=== PATIENT | female | born 1935 | race Hispanic/Latino ===

== ENCOUNTER 2018-03-27 18:00 | Observation (INO) | payer OTHER ==
[2018-03-27 19:24] LABS: Absolute Lymphocytes (CBC) 1.7 K/uL (0.7-4.9); Absolute Monocytes 0.8 K/uL (0.1-1.3); Absolute Neutrophil 4.7 K/uL (1.8-8.0); Basophils % 0.5 % (0-1.3); Hematocrit 37.2 % (36.0-45.0); Lymphocytes % 23.9 % (15.3-44.8); MCH 29.7 pg (27.0-35.0); MCV 88.3 fL (80-100); MPV 8.1 fL (7.6-11.3); Monocytes % 10.7 % (3.3-12.3); RBC Red Blood Cell Count 4.22 M/uL (3.86-4.86)
[2018-03-27 19:25] LABS: Protime INR 0.98
[2018-03-27 19:32] LABS: ALT/SGPT 22 U/L (12-78); AST/SGOT 14 U/L (15-37); Albumin 3.5 g/dL (3.4-5.0); Alkaline Phosphatase 119 U/L (45-117); BUN Blood Urea Nitrogen 17 mg/dL (7-18); Bicarbonate 26 mmol/L (21-32); Bilirubin Direct 0.1 mg/dL (0-0.2); Bilirubin Total 0.4 mg/dL (0.2-1.0); Glucose Level 110 mg/dL (74-106); Lipase 192 U/L (73-393); Magnesium 2.2 mg/dL (1.8-2.4); NT PRO-BNP 129 pg/mL (<450); Potassium 3.3 mmol/L (3.5-5.1); Protein, Total 6.9 g/dL (6.4-8.2); Sodium Level 133 mmol/L (136-145); Troponin (Emerg Dept Use Only) < 0.02 ng/mL (0.0-0.045)
[2018-03-27] MEDS ORDERED: NA CHLORIDE 0.9% 1,000 ML ONE (20:03)
--- NOTE | 2018-03-27 20:14 | RAD REPORT ---
EXAM DESCRIPTION: CT - Chest Abd Pelvis Wo Con - 03/27/2018 8:02 pm CLINICAL HISTORY: Chest pain;Abdominal distention COMPARISON: None. TECHNIQUE: During dynamic enhancement using 100 milliliters nonionic IV contrast, axial 5 millimeter thick images of the chest, abdomen and pelvis were obtained. Biphasic technique was utilized through the abdomen. Oral contrast was administered. All CT scans are performed using dose optimization technique as appropriate and may include automated exposure control or mA/KV adjustment according to patient size. FINDINGS: No infiltrate and no large mass in the lung parenchyma. There are few scattered areas of n odularity under 5 mm in size. No calcifications. No pneumothorax or pleural effusion. No chest wall mass or abnormal axillary lymphadenopathy seen. Mediastinal and hilar regions show no mass or lympha denopathy. No significant cardiac finding. The liver, spleen and pancreas show no significant findings. Cholecystectomy clips are present. No b iliary tree dilatation. Symmetric renal function is seen with no hydronephrosis, mass or other significant finding. Left adr enal gland is normal. A 2.9 centimeter fat attenuation right adrenal mass is present. This is an inci dental adenoma. No urinary bladder abnormalities. Small amount of air in the bladder is probably fro m catheterization. Uterus is absent. Ovaries are absent or atrophic. No dilated bowel loops or focal ball bowel wall thickening. Sigmoid diverticulosis present without di verticulitis. No free air, free fluid or inflammatory stranding. No hernia, mass or bulky lymphadeno mark. Disc and bony degenerative changes are present. Enlarged right lobe of the thyroid suspicious for a 2 cm sized nodule. IMPRESSION: No large mass, infiltrate or acute CT chest finding. Multiple small pulmonary nodules are present under 5 mm in size. Long-term significance is doubtful. No recommendation for follow-up for a low risk patient. High risk patient recommendation is optional CT at 12 months. Incidental right adrenal adenoma. No acute GI or process.
--- NOTE | 2018-03-27 20:40 | EDPHYS ---
Physician Documentation [facility] Name: Radha Laguna Age: 83 yrs Sex: Female : 1935 Arrival Date: 03/27/2018 Time: 18:04 Bed 8 Private MD: Walter Escobar ED Physician Douglas Gates HPI: 03/27 20:34 This 83 yrs old Female presents to ER via Ambulatory with complaints of robson Abdominal Pain, Back Pain. 20:34 The patient presents with pain that is chronic. The symptoms are located in the T7, T8, robson T9, T10, T12, L1, L2 and L3. 20:35 The patient presents with abdominal pain in the upper abdomen. Onset: The robson symptoms/episode began/occurred 7 day(s) ago. Onset: The symptoms/episode began/occurred 7 day(s) ago. The pain does not radiate. Associated signs and symptoms: Pertinent positives: nausea, weakness, shakey. Modifying factors: The patient symptoms are alleviated by nothing, the patient symptoms are aggravated by vague. Historical: - Allergies: 18:25 NKDA; aa5 - PMHx: 18:25 Diabetes - NIDDM; Hypertension; aa5 - PSHx: 18:25 Appendectomy; Cholecystectomy; Hysterectomy; aa5 - Immunization history:: Pneumococcal vaccine is up to date, Flu vaccine is not up to date. - Social history:: Smoking status: Patient/guardian denies using tobacco. - Ebola Screening: : No symptoms or risks identified at this time. - Family history:: pertinent for. ROS: 20:35 Constitutional: Negative for fever, chills, and weight loss, Eyes: Negative for injury, robson pain, redness, and discharge, ENT: Negative for injury, pain, and discharge, Neck: Negative for injury, pain, and swelling, Cardiovascular: Negative for chest pain, palpitations, and edema, Respiratory: Negative for shortness of breath, cough, wheezing, and pleuritic chest pain, Back: Negative for injury and pain, : Negative for injury, bleeding, discharge, and swelling, MS/Extremity: Negative for injury and deformity, Skin: Negative for injury, rash, and discoloration, Neuro: Negative for headache, weakness, numbness, tingling, and seizure, Psych: Negative for depression, anxiety, suicide ideation, homicidal ideation, and hallucinations, Allergy/Immunology: Negative for hives, rash, and allergies, Endocrine: Negative for neck swelling, polydipsia, polyuria, polyphagia, and marked weight changes, Hematologic/Lymphatic: Negative for swollen nodes, abnormal bleeding, and unusual bruising. 20:35 Abdomen/GI: Positive for abdominal pain, nausea. Exam: 20:35 Constitutional: This is a well developed, well nourished patient who is awake, alert, robson and in no acute distress. Head/Face: Normocephalic, atraumatic. Eyes: Pupils equal round and reactive to light, extra-ocular motions intact. Lids and lashes normal. Conjunctiva and sclera are non-icteric and not injected. Cornea within normal limits. Periorbital areas with no swelling, redness, or edema. ENT: Nares patent. No nasal discharge, no septal abnormalities noted. Tympanic membranes are normal and external auditory canals are clear. Oropharynx with no redness, swelling, or masses, exudates, or evidence of obstruction, uvula midline. Mucous membranes moist. Neck: Trachea midline, no thyromegaly or masses palpated, and no cervical lymphadenopathy. Supple, full range of motion without nuchal rigidity, or vertebral point tenderness. No Meningismus. Chest/axilla: Normal chest wall appearance and motion. Nontender with no deformity. No lesions are appreciated. Cardiovascular: Regular rate and rhythm with a normal S1 and S2. No gallops, murmurs, or rubs. Normal PMI, no JVD. No pulse deficits. Respiratory: Lungs have equal breath sounds bilaterally, clear to auscultation and percussion. No rales, rhonchi or wheezes noted. No increased work of breathing, no retractions or nasal flaring. Back: No spinal tenderness. No costovertebral tenderness. Full range of motion. Female : Normal external genitalia. Skin: Warm, dry with normal turgor. Normal color with no rashes, no lesions, and no evidence of cellulitis. MS/ Extremity: Pulses equal, no cyanosis. Neurovascular intact. Full, normal range of motion. Neuro: Awake and alert, GCS 15, oriented to person, place, time, and situation. Cranial nerves II-XII grossly intact. Motor strength 5/5 in all extremities. Sensory grossly intact. Cerebellar exam normal. Normal gait. Psych: Awake, alert, with orientation to person, place and time. Behavior, mood, and affect are within normal limits. 20:35 Abdomen/GI: Inspection: distension, Bowel sounds: normal, Palpation: mild abdominal tenderness, in all quadrants, Liver: no appreciated palpable abnormalities, Hernia: not appreciated. Vital Signs: 18:27 BP 145 / 65; Pulse 74; Resp 18 S; Temp 97.4(TE); Pulse Ox 96% on R/A; Weight 72.57 kg aa5 (R); Height 4 ft. 11 in. (149.86 cm) (R); Pain 10/10; 19:30 BP 153 / 62; Pulse 64; Resp 18; Pulse Ox 100% on R/A; aa1 20:30 BP 170 / 73; Pulse 62; Resp 18; Pulse Ox 100% on R/A; aa1 21:30 BP 159 / 65; Pulse 64; Resp 18; Pulse Ox 99% on R/A; Pain 0/10; aa1 22:30 BP 151 / 66; Pulse 62; Resp 18; Pulse Ox 99% on R/A; Pain 0/10; aa1 18:27 Body Mass Index 32.32 (72.57 kg, 149.86 cm) aa5 MDM: 18:47 Patient medically screened. [facility] 20:37 Data reviewed: vital signs, nurses notes, lab test result(s), EKG, radiologic studies, [facility] CT scan, plain films. 03/27 18:39 Order name: Basic Metabolic Panel; Complete Time: 19:33 bp 03/27 18:39 Order name: CBC with Diff; Complete Time: 20:23 bp 03/27 18:39 Order name: LFT's; Complete Time: 19:33 bp 03/27 18:39 Order name: Magnesium; Complete Time: 19:33 bp 03/27 18:39 Order name: NT PRO-BNP; Complete Time: 19:33 bp 03/27 18:39 Order name: PT-INR; Complete Time: 20:23 bp 03/27 18:39 Order name: Troponin (emerg Dept Use Only); Complete Time: 19:33 bp 03/27 18:39 Order name: XRAY Chest (1 view); Complete Time: 23:13 bp 03/27 18:39 Order name: Creatinine for Radiology; Complete Time: 19:33 bp 03/27 18:39 Order name: Lipase; Complete Time: 19:33 bp 03/27 19:35 Order name: CT Chest Abdomen Pelvis W/O Contrast: no oral no iv; Complete Time: 20:23 robson 03/27 20:40 Order name: Urine Culture [facility] 03/27 20:47 Order name: Urine Dipstick--Ancillary (enter results); Complete Time: 23:13 ms 03/27 20:47 Order name: Urine Microscopic Only; Complete Time: 23:13 ms 03/27 18:39 Order name: EKG; Complete Time: 18:40 bp 03/27 18:39 Order name: Cardiac monitoring; Complete Time: 18:40 bp 03/27 18:39 Order name: EKG - Nurse/Tech; Complete Time: 18:54 bp 03/27 18:39 Order name: IV Saline Lock; Complete Time: 18:40 bp 03/27 18:39 Order name: Labs collected and sent; Complete Time: 18:40 bp 03/27 18:39 Order name: O2 Per Protocol; Complete Time: 18:40 bp 03/27 18:39 Order name: O2 Sat Monitoring; Complete Time: 18:40 bp Administered Medications: Discontinued: NS 0.9% 1000 ml IV at 125 ml/hr continuous 20:33 Drug: NS 0.9% 1000 ml Route: IV; Rate: 125 ml/hr; Site: right antecubital; aa1 21:39 Drug: ProTONIX 40 mg Route: IVP; Site: right antecubital; aa1 21:40 Follow up: Response: No adverse reaction aa1 21:40 Drug: NS 0.9% with KCl 20 mEq/L 1000 ml Route: IV; Rate: 100 ml/hr; Site: right aa1 antecubital; 23:02 Follow up: IV Status: Infusion continued upon admission aa1 21:41 Not Given (Other Intervention Used): Rocephin - (cefTRIAXone) 1 grams IVPB once over 30 aa1 mins; (mix in 50 mL NS) 21:41 Drug: Rocephin 1 grams Route: IV; Rate: bolus; Site: right antecubital; aa1 21:51 Follow up: IV Status: Completed infusion aa1 23:16 Not Given (Patient Refused): fentaNYL (PF) 25 mcg IVP once aa1 23:16 Not Given (Patient Refused): Zofran 4 mg IVP once; over 2 minutes aa1 Point of Care Testing: Blood Glucose: 18:34 Blood Glucose: 116 mg/dL; aa5 Ranges: Critical Glucose Levels:Adult <50 mg/dl or >400 mg/dl <40 mg/dl or >180 mg/dl Disposition: 03/27/18 20:40 Hospitalization ordered by Neeraj Mathur for Observation. Preliminary diagnosis are Low back pain, Generalized abdominal pain, Weakness, Cystitis, Hypokalemia. - Bed requested for Telemetry/MedSurg (observation). - Status is Observation. aa1 - Condition is Fair. - Problem is new. - Symptoms have improved. UTI on Admission? Yes Signatures: Dispatcher [employer] EDMS Monika Lynn RN Marlene Garza RN RN aa1 Douglas Gates MD MD cha Calderon, Audri RN RN aa5 Dorian Breaux RN RN bp Corrections: (The following items were deleted from the chart) 22:18 20:40 Hospitalization Ordered by Neeraj Mathur MD for Observation. Preliminary diagnosis is Low back pain; Generalized abdominal pain; Weakness; Cystitis. Bed requested for Telemetry/MedSurg (observation). Status is Observation. Condition is Fair. Problem is new. Symptoms have improved. UTI on Admission? Yes. robson 23:14 22:18 03/27/2018 20:40 Hospitalization Ordered by Neeraj Mathur MD for Observation. [facility] Preliminary diagnosis is Low back pain; Generalized abdominal pain; Weakness; Cystitis. Bed requested for Telemetry/MedSurg (observation). Status is Observation. Condition is Fair. Problem is new. Symptoms have improved. UTI on Admission? Yes. leida 23:29 23:14 03/27/2018 20:40 Hospitalization Ordered by Neeraj Mathur MD for Observation. aa1 Preliminary diagnosis is Low back pain; Generalized abdominal pain; Weakness; Cystitis; Hypokalemia. Bed requested for Telemetry/MedSurg (observation). Status is Observation. Condition is Fair. Problem is new. Symptoms have improved. UTI on Admission? Yes. robson
--- NOTE | 2018-03-27 20:40 | ER ---
Nurse's Notes [facility] Name: Radha Laguna Age: 83 yrs Sex: Female : 1935 Arrival Date: 03/27/2018 Time: 18:04 Bed 8 Private MD: Walter Escobar Diagnosis: Low back pain;Generalized abdominal pain;Weakness;Cystitis;Hypokalemia Presentation: 03/27 18:24 Presenting complaint: Patient states: upper abd pain and upper back pain that began 1 aa5 week ago. Pt reports nausea, denies vomiting, denies diarrhea. Pt also reports decreased appetite x 1 week ago. Transition of care: patient was not received from another setting of care. Onset of symptoms was March 2018. Risk Assessment: Do you want to hurt yourself or someone else? Patient reports no desire to harm self or others. Initial Sepsis Screen: Does the patient meet any 2 criteria? No. Patient's initial sepsis screen is negative. Does the patient have a suspected source of infection? No. Patient's initial sepsis screen is negative. Care prior to arrival: None. 18:24 Method Of Arrival: Ambulatory aa5 18:24 Acuity: JULIET 3 aa5 Historical: - Allergies: 18:25 NKDA; aa5 - PMHx: 18:25 Diabetes - NIDDM; Hypertension; aa5 - PSHx: 18:25 Appendectomy; Cholecystectomy; Hysterectomy; aa5 - Immunization history:: Pneumococcal vaccine is up to date, Flu vaccine is not up to date. - Social history:: Smoking status: Patient/guardian denies using tobacco. - Ebola Screening: : No symptoms or risks identified at this time. - Family history:: pertinent for. Screenin:41 Abuse screen: Denies threats or abuse. Denies injuries from another. Nutritional bp screening: No deficits noted. Tuberculosis screening: No symptoms or risk factors identified. Fall Risk None identified. Assessment: 18:41 General: Appears in no apparent distress. uncomfortable, obese, Behavior is calm, bp cooperative, appropriate for age. Pain: Complains of pain in abdomen. Neuro: Level of Consciousness is awake, alert, obeys commands, Oriented to person, place, time, situation, Appropriate for age. Cardiovascular: Rhythm is sinus rhythm. Respiratory: Airway is patent Respiratory effort is even, unlabored, Respiratory pattern is regular, symmetrical. GI: Bowel sounds present X 4 quads. Abd is soft X 4 quads Patient currently denies diarrhea, vomiting, Parent/caregiver reports the patient having nausea. : No signs and/or symptoms were reported regarding the genitourinary system. EENT: No deficits noted. Derm: No deficits noted. Musculoskeletal: Circulation, motion, and sensation intact. Range of motion: intact in all extremities. 19:30 Reassessment: Patient appears in no apparent distress at this time. Patient and/or aa1 family updated on plan of care and expected duration. Pain level reassessed. Patient is alert, oriented x 3, equal unlabored respirations, skin warm/dry/pink. Pt awaiting CT scan. 20:15 Reassessment: Patient appears in no apparent distress at this time. Patient and/or aa1 family updated on plan of care and expected duration. Pain level reassessed. Patient is alert, oriented x 3, equal unlabored respirations, skin warm/dry/pink. Awaiting CT results. 21:42 Reassessment: Patient appears in no apparent distress at this time. Patient and/or aa1 family updated on plan of care and expected duration. Pain level reassessed. Patient is alert, oriented x 3, equal unlabored respirations, skin warm/dry/pink. Awaiting bed assignment Patient denies pain at this time. 23:04 Reassessment: Patient appears in no apparent distress at this time. Patient is alert, aa1 oriented x 3, equal unlabored respirations, skin warm/dry/pink. Report given to Kaycee on 4th floor Patient denies pain at this time. Vital Signs: 18:27 BP 145 / 65; Pulse 74; Resp 18 S; Temp 97.4(TE); Pulse Ox 96% on R/A; Weight 72.57 kg aa5 (R); Height 4 ft. 11 in. (149.86 cm) (R); Pain 10/10; 19:30 BP 153 / 62; Pulse 64; Resp 18; Pulse Ox 100% on R/A; aa1 20:30 BP 170 / 73; Pulse 62; Resp 18; Pulse Ox 100% on R/A; aa1 21:30 BP 159 / 65; Pulse 64; Resp 18; Pulse Ox 99% on R/A; Pain 0/10; aa1 22:30 BP 151 / 66; Pulse 62; Resp 18; Pulse Ox 99% on R/A; Pain 0/10; aa1 18:27 Body Mass Index 32.32 (72.57 kg, 149.86 cm) aa5 ED Course: 18:04 Patient arrived in ED. mr 18:05 Walter Escobar MD is Private Physician. mr 18:26 Triage completed. aa5 18:26 Arm band placed on. aa5 18:29 Dorian Breaux, RN is Primary Nurse. bp 18:41 Patient has correct armband on for positive identification. Bed in low position. Call bp light in reach. Side rails up X2. Adult w/ patient. 18:41 Inserted saline lock: 20 gauge in right antecubital area, using aseptic technique. bp Blood collected. 18:47 Douglas Gates MD is Attending Physician. robson 18:53 EKG done, by ED staff, reviewed by Douglas Gates MD. em1 19:05 XRAY Chest (1 view) In Process Unspecified. EDMS 20:02 CT Chest Abdomen Pelvis W/O Contrast: no oral no iv In Process Unspecified. EDMS 20:38 Neeraj Mathur MD is Hospitalizing Provider. robson 22:52 No provider procedures requiring assistance completed. Patient admitted, IV remains in aa1 place. Administered Medications: Discontinued: NS 0.9% 1000 ml IV at 125 ml/hr continuous 20:33 Drug: NS 0.9% 1000 ml Route: IV; Rate: 125 ml/hr; Site: right antecubital; aa1 21:39 Drug: ProTONIX 40 mg Route: IVP; Site: right antecubital; aa1 21:40 Follow up: Response: No adverse reaction aa1 21:40 Drug: NS 0.9% with KCl 20 mEq/L 1000 ml Route: IV; Rate: 100 ml/hr; Site: right aa1 antecubital; 23:02 Follow up: IV Status: Infusion continued upon admission aa1 21:41 Not Given (Other Intervention Used): Rocephin - (cefTRIAXone) 1 grams IVPB once over 30 aa1 mins; (mix in 50 mL NS) 21:41 Drug: Rocephin 1 grams Route: IV; Rate: bolus; Site: right antecubital; aa1 21:51 Follow up: IV Status: Completed infusion aa1 23:16 Not Given (Patient Refused): fentaNYL (PF) 25 mcg IVP once aa1 23:16 Not Given (Patient Refused): Zofran 4 mg IVP once; over 2 minutes aa1 Point of Care Testing: Blood Glucose: 18:34 Blood Glucose: 116 mg/dL; aa5 Ranges: Outcome: 20:40 Decision to Hospitalize by Provider. [facility] 23:04 Admitted to Tele accompanied by tech, family with patient, via stretcher, room 419, aa1 with chart, Report called to Kaycee 23:04 Condition: stable 23:04 Discharge instructions given to family, Instructed on the need for admit, Demonstrated understanding of instructions. 23:29 Patient left the ED. aa1 Signatures: Dispatcher [employer] EDMS Marlene Vee RN RN aa1 Douglas Gates MD MD cha Rivera, Cindy Szymanski, Que em1 Margaret Denson, AILYN RN aa5 Dorian Breaux, RN RN bp Corrections: (The following items were deleted from the chart) 18:28 18:24 Presenting complaint: Patient states: upper abd pain and upper back pain that aa5 began 1 week ago. Pt reports nausea, denies vomiting, denies diarrhea. aa5
--- NOTE | 2018-03-27 20:43 | RAD REPORT ---
EXAM DESCRIPTION: RAD - Chest Single View - 03/27/2018 7:04 pm CLINICAL HISTORY: Chest pain, abdominal pain COMPARISON: October 2016 TECHNIQUE: AP portable chest image was obtained 1900 hours . FINDINGS: Inspiratory effort is shallow. This accentuates lung markings. No new mass, consolidation or significant failure. Heart and vasculature are normal. No measurable pleural effusion and no pneum othorax. No acute bony abnormality seen. No acute aortic findings suspected. IMPRESSION: Shallow inspiration film without acute cardiopulmonary finding. No significant change from comparison.
[2018-03-27] MEDS ORDERED: MORPHINE 4 MG/ML SYR IV PRN (21:15)
[2018-03-27] MEDS ORDERED: ONDANSETRON 4 MG/2 ML VIAL IV PRN (21:15)
[2018-03-27] MEDS ORDERED: ACETAMINOPHEN 500 MG TAB PO PRN (21:15)
[2018-03-27 21:20] LABS: Urine Blood 1+ (NEG); Urine Glucose NEGATIVE (NEG); Urine Protein NEGATIVE (NEG); Urine Specific Gravity 1.015 (1.005-1.030)
[2018-03-27 21:20] LABS: Urine Bacteria 20-50 /HPF (<20); Urine Culture Reflex Order REFLEXED; Urine Mucus 1+ /HPF (NONE SEEN)
[2018-03-27] MEDS ORDERED: NS KCL 20MEQ 1,000 ML IV ONE (21:39)
[2018-03-27] MEDS ORDERED: CEFTRIAXONE/SWI 1gm 1 GM/10 ML SYR ONE (21:39)
[2018-03-27 23:46] VITALS: O2SAT 99
[2018-03-27] MEDS: NA CHLORIDE 0.9% 1,000 ML IV SCH (23:50)
[2018-03-28 00:48] VITALS: BMI 31.8
[2018-03-28 04:43] LABS: Absolute Lymphocytes (CBC) 1.7 K/uL (0.7-4.9); Absolute Monocytes 0.8 K/uL (0.1-1.3); Absolute Neutrophil 4.9 K/uL (1.8-8.0); Basophils % 0.4 % (0-1.3); Eosinophils % 1.1 % (0-4.4); Hematocrit 34.4 % (36.0-45.0); Lymphocytes % 22.2 % (15.3-44.8); MCH 29.2 pg (27.0-35.0); MCV 86.7 fL (80-100); Monocytes % 10.3 % (3.3-12.3); RBC Red Blood Cell Count 3.97 M/uL (3.86-4.86)
[2018-03-28 04:50] LABS: Potassium 3.5 mmol/L (3.5-5.1)
[2018-03-28] MEDS ORDERED: HYDROCODONE/APAP 5/325 MG TAB PO PRN (07:34)
[2018-03-28] MEDS ORDERED: PROMETHAZINE 25 MG TABLET PO PRN (07:34)
--- NOTE | 2018-03-28 07:34 | EKG ---
Test Date: 2018-03-27 Test Time: 18:46:36 Cleaning Handyman: JEFFY MEASUREMENT RESULTS: Intervals: Rate: 69 UT: 164 QRSD: 88 QT: 386 QTc: 413 [place]: P: 55 UT: 164 QRS: -8 T: 40 INTERPRETIVE STATEMENTS: Normal sinus rhythm Normal ECG Compared to ECG 11/17/2016 07:14:24 Sinus bradycardia no longer present Sinus arrhythmia no longer present Electronically Signed On 03-28-18 07:33:56 CDT by Lon Cole
--- NOTE | 2018-03-28 07:40 | P.HP ---
Certification for Inpatient Patient admitted to: Observation With expected LOS: <2 Midnights Patient will require the following post-hospital care: None Practitioner: I am a practitioner with admitting privileges, knowledge of patient current condition, hospital course, and medical plan of care. Services: Services provided to patient in accordance with Admission requirements found in Title 42 Section 412.3 of the Code of Federal Regulations Patient History Date of Service: 03/27/18 Reason for admission: Abdominal pain/nausea History of Present Illness: Patient is an 83-year-old female who comes into the hospital with complaints of abdominal pain. This is been going on for the last few days. Her symptoms did wax and wane but they have been worse over the last few days. She has not been able to eat anything because she gets nauseated. She came to the emergency room for further evaluation. Her pain was reproducible in mainly located in the right lower and upper quadrant. There was no rebound tenderness nor the was there a guarding. Patient will be admitted to the hospital for further workup. Allergies morphine Allergy (Verified 03/28/18 00:41) Nausea/Vomiting Home Medications: Telmisartan/Hydrochlorothiazid [Micardis Hct 80-12.5 mg Tablet] 1 each PO DAILY 08/27/13 Hydrocodone/Acetaminophen [Hydrocodone-Acetamin 5-325 mg] 1 tab PO BIDP PRN Amlodipine [Norvasc] 5 mg PO DAILY 03/28/18 Atorvastatin Calcium [Lipitor] 10 mg PO BEDTIME 03/28/18 Duloxetine [Cymbalta Dalayed Release Pellets] 20 mg PO BID 03/28/18 Lipase/Protease/Amylase [Mabel Rodriguez 36,000 Units Capsule] 36,000 units PO TIDWM Pantoprazole [Protonix Tab] 40 mg PO DAILY 03/28/18 Promethazine HCl 25 mg PO Q4H PRN 03/28/18 Sitagliptin Phosphate [Januvia] 100 mg PO DAILY 03/28/18 - Past Medical/Surgical History Has patient received pneumonia vaccine in the past: No Diabetic: Yes -: DM -: HTN -: Dyslipidemia -: Cholecystectomy -: Appendectomy -: Hysterectomy -: LUDMILA Cataract Repair - Family History Father Family History: Reviewed- Non-Contributory - Social History Smoking Status: Never smoker Alcohol use: No CD- Drugs: No Caffeine use: Yes Place of Residence: Home Review of Systems 10-point ROS is otherwise unremarkable Physical Examination - Vital Signs Temperature: 97.2 F Blood Pressure: 129/60 Pulse: 70 Respirations: 20 Pulse Ox (%): 99 - Physical Exam General: Alert, In no apparent distress, Oriented x3 HEENT: Atraumatic, PERRLA, Mucous membr. moist/pink, EOMI, Sclerae nonicteric Neck: Supple, 2+ carotid pulse no bruit, No LAD, Without JVD or thyroid abnormality Respiratory: Clear to auscultation bilaterally, Normal air movement Cardiovascular: Regular rate/rhythm, Normal S1 S2, No murmurs Gastrointestinal: Normal bowel sounds, Soft and benign, Non-distended, W/out succussion splash, Tenderness Musculoskeletal: No clubbing, No swelling, No tenderness Integumentary: No rashes Neurological: Normal gait, Normal speech, Normal strength at 5/5 x4 extr, Normal tone, Sensation intact, Cranial nerves 3-12 intact, Normal affect Lymphatics: No axilla or inguinal lymphadenopathy - Studies Laboratory Data (last 24 hrs) 03/27/18 18:50: Creatinine 1.20 03/27/18 18:50: PT 11.6, INR 0.98 03/27/18 18:50: WBC 7.3, Hgb 12.5, Hct 37.2, Plt Count 170 03/27/18 18:50: Sodium 133 L, Potassium 3.3 L, BUN 17, Creatinine 1.20, Glucose 110 H, Magnesium 2.2, Total Bilirubin 0.4, AST 14 L, ALT 22, Alkaline Phosphatase 119 H, Lipase 192 Assessment & Plan - Problems (Diagnosis) (1) Nausea Current Visit: Yes Status: Acute (2) Abdominal pain Current Visit: No Status: Acute (3) Chest pain Onset Date: 11/17/16 Current Visit: No Status: Acute (4) Diabetes mellitus Current Visit: No Status: Acute (5) Hypertension Current Visit: No Status: Acute - Plan Plan: 1. Significant lab data to eval and await workup for abdominal discomfort. 2. Start clear liquid diet and advance as tolerated 3. Pain control 4. Anti emetics 5. IV hydration 6. IV antibiotics 7. GI and DVT prophylaxis Discharge Plan: Home Plan to discharge in: 24 Hours - Advance Directives Does patient have a Living Will: No Does patient have a Durable POA for Healthcare: No - Code Status/Comfort Care Code Status Assessed: Yes Code Status: Full Code Critical Care: No (50)
[2018-03-28] MEDS ORDERED: INFLUENZA VACCINE (for 3y+) 0.5 ML DOSE IMVAC ONE (08:00)
[2018-03-28] MEDS ORDERED: PNEUMOCOCCAL VACCINE 0.5 ML IMVAC ONE (08:00)
[2018-03-28] MEDS ORDERED: DULOXETINE 20 MG CAP PO SCH (09:00)
[2018-03-28] MEDS ORDERED: CEFTRIAXONE/SWI 1gm 1 GM/10 ML SYR IV SCH (09:00)
[2018-03-28] MEDS ORDERED: PANTOPRAZOLE 40 MG INJ IVP SCH (09:00)
[2018-03-28] MEDS ORDERED: AMLODIPINE 5 MG TAB PO SCH (09:00)
[2018-03-28] MEDS ORDERED: [UNRECOGNIZED DRUG - OTHER] PO SCH (09:00)
[2018-03-28] MEDS ORDERED: hydroCHLOROthiazide 12.5 MG CAP PO SCH (09:00)
[2018-03-28] MEDS ORDERED: PANTOPRAZOLE 40MG TABLET PO SCH (09:00)
[2018-03-28] MEDS ORDERED: VALSARTAN 80 MG TAB PO SCH (09:00)
[2018-03-28] MEDS: LIPASE/PROTEASE/AMYLASE CAP PO SCH ×3 (09:46→16:59)
[2018-03-28] MEDS: NA CHLORIDE 0.9% 1,000 ML IV SCH (11:20)
[2018-03-28 17:11] VITALS: BP 134/50; TEMP 97.7
--- NOTE | 2018-03-28 19:23 | P.DS ---
Admission Date: 03/27/18 Discharge Date: 03/28/18 Primary Care Provider: leona escobar Disposition: ROUTINE DISCHARGE Discharge Condition: GOOD Reason for Admission: Abdominal pain/nausea Brief History of Present Illness: 83-year-old female who came into the hospital with complaints of abdominal pain for the last few days. Her symptoms did wax and wane but they have been worse over the last few days. She had not been able to eat anything because of nausea. She came to the emergency room for further evaluation. Her pain was reproducible in mainly located in the right lower and upper quadrant. There was no rebound tenderness nor the was there a guarding. Patient was admitted to the hospital for further workup. Hospital Course: (1) Nausea (2) Abdominal pain (3) Chest pain (4) Diabetes mellitus (5) Hypertension She was admitted to the hospital, started on clear liquid diet and advanced to soft diet for lunch. patient tolerated diet very well. For dinner, patient eating mashed potatoes and meat with family at bedside. Tolerated well with no complaints of pain, nausea or vomiting. Vital Signs/Physical Exam: Temp Pulse Resp BP Pulse Ox 97.7 F 65 16 134/50 L 99 03/28/18 16:00 03/28/18 16:00 03/28/18 16:00 03/28/18 16:00 03/28/18 16:00 General: Alert, In no apparent distress HEENT: Atraumatic Neck: Supple Respiratory: Clear to auscultation bilaterally, Normal air movement Cardiovascular: No edema, Normal pulses, Regular rate/rhythm Gastrointestinal: Normal bowel sounds, Soft and benign, Non-distended, W/out hepatosplenomegaly, No tenderness, No rebound, No guarding Musculoskeletal: No clubbing Neurological: Normal speech Laboratory Data at Discharge: WBC 7.5 K/uL (4.3-10.9) 03/28/18 04:00 Hgb 11.6 g/dL (12.0-15.0) L 03/28/18 04:00 Hct 34.4 % (36.0-45.0) L 03/28/18 04:00 Plt Count 168 K/uL (152-406) 03/28/18 04:00 PT 11.6 SECONDS (9.5-12.5) 03/27/18 18:50 INR 0.98 03/27/18 18:50 Sodium 136 mmol/L (136-145) 03/28/18 04:00 Potassium 3.5 mmol/L (3.5-5.1) 03/28/18 04:00 BUN 15 mg/dL (7-18) 03/28/18 04:00 Creatinine 1.00 mg/dL (0.55-1.3) 03/28/18 04:00 Glucose 117 mg/dL (74-106) H 03/28/18 04:00 Magnesium 2.2 mg/dL (1.8-2.4) 03/27/18 18:50 Total Bilirubin 0.4 mg/dL (0.2-1.0) 03/27/18 18:50 AST 14 U/L (15-37) L 03/27/18 18:50 ALT 22 U/L (12-78) 03/27/18 18:50 Alkaline Phosphatase 119 U/L (45-117) H 03/27/18 18:50 Lipase 192 U/L (73-393) 03/27/18 18:50 Home Medications: Telmisartan/Hydrochlorothiazid [Micardis Hct 80-12.5 mg Tablet] 1 each PO DAILY 08/27/13 Hydrocodone/Acetaminophen [Hydrocodone-Acetamin 5-325 mg] 1 tab PO BIDP PRN Amlodipine [Norvasc*] 5 mg PO DAILY 03/28/18 Atorvastatin Calcium [Lipitor*] 10 mg PO BEDTIME 03/28/18 Duloxetine [Cymbalta *] 20 mg PO BID 03/28/18 Lipase/Protease/Amylase [Mabel Rodriguez 36,000 Units Capsule] 36,000 units PO TIDWM Pantoprazole [Protonix Tab*] 40 mg PO DAILY 03/28/18 Promethazine HCl 25 mg PO Q4H PRN 03/28/18 Sitagliptin Phosphate [Januvia*] 100 mg PO DAILY 03/28/18 Patient Discharge Instructions: Please follow up with your primary care doctor in 1 week. Diet: Regular Activity: Ad ari Followup: Walter Escobar MD [Primary Care Provider] - Time spent managing pt's care (in minutes): 55
[2018-03-28] MEDS ORDERED: ATORVASTATIN 10 MG TAB PO SCH (21:00)
== END 2018-03-28 20:19 | disposition home or self-care (01) ==
LOC: ER 18:00 → ERHOLD 20:42 → 4TH 23:05
PROVIDERS: ADMIT Hospitalist; ATTEND Hospitalist
DX: R10.31 Right lower quadrant pain (principal); R10.11 Right upper quadrant pain; R11.0 Nausea; E11.9 Type 2 diabetes mellitus without complications; I10 Essential (primary) hypertension; E78.5 Hyperlipidemia, unspecified; Z23 Encounter for immunization
CPT/HCPCS: 36415; 71045; 71250; 74176; 80048; 80076; 81003; 81015; 82962; 83690; 83735; 83880; 84484; 85025; 85610; 87077; 87086; 87088; 87186; 90670; 93005; 96361; 96374; 96375; 99285; C9113; G0008; G0009; G0378; J0696; J7030; Q2035

== ENCOUNTER 2018-10-18 13:25 | Emergency (ER) | payer OTHER ==
[2018-10-18 14:27] LABS: Absolute Lymphocytes (CBC) 1.9 K/uL (0.7-4.9); Absolute Monocytes 0.7 K/uL (0.1-1.3); Absolute Neutrophil 5.3 K/uL (1.8-8.0); Basophils % 0.7 % (0-1.3); Eosinophils % 0.6 % (0-4.4); Lymphocytes % 23.6 % (15.3-44.8); MPV 8.5 fL (7.6-11.3); Monocytes % 9.2 % (3.3-12.3); RBC Red Blood Cell Count 4.43 M/uL (3.86-4.86)
[2018-10-18 14:45] LABS: Albumin 3.5 g/dL (3.4-5.0); Bilirubin Direct 0.1 mg/dL (0-0.2); Bilirubin Total 0.5 mg/dL (0.2-1.0); Potassium 4.3 mmol/L (3.5-5.1); Protein, Total 7.2 g/dL (6.4-8.2)
[2018-10-18 14:53] LABS: Urine Blood 1+ (NEG); Urine Glucose NEGATIVE (NEG); Urine Protein NEGATIVE (NEG)
--- NOTE | 2018-10-18 15:28 | RAD REPORT ---
EXAM DESCRIPTION: CT - Abdomen Pelvis W Contrast - 10/18/2018 3:04 pm CLINICAL HISTORY: Abdominal pain . COMPARISON: 2016 TECHNIQUE: Computed axial tomography of the abdomen pelvis was obtained. 100 cc Isovue-300 was admin istered intravenously. Oral contrast was not requested which limits evaluation of bowel. All CT scans are performed using dose optimization technique as appropriate and may include automated exposure control or mA/KV adjustment according to patient size. FINDINGS: A 3 millimeter subpleural right lung nodule are unchanged likely benign The liver, spleen, pancreas, left adrenal and kidneys appear unremarkable. 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 Minimal stranding adjacent to the descending colon Cholecystectomy IMPRESSION: Minimal sigmoid diverticulitis.
[2018-10-18 15:40] LABS: Urine Bacteria >50 /HPF (<20); Urine Culture Reflex Order REFLEXED; Urine RBC <5 /HPF (NONE SEEN)
--- NOTE | 2018-10-18 15:51 | ER ---
Nurse's Notes [facility] Name: Radha Laguna Age: 83 yrs Sex: Female : 1935 Arrival Date: 10/18/2018 Time: 13:27 Bed 14 Private MD: Walter Escobar Diagnosis: Diverticulitis of large intestine without perforation or abscess without bleeding;Urinary tract infection, site not specified Presentation: 10/18 13:43 Presenting complaint: Patient states: intermittent generalized abd pain that began aa5 approximately 1 week ago and it's worse today. Denies vomiting/diarrhea. Reports taking [place] [employer]. Transition of care: patient was not received from another setting of care. Onset of symptoms was September 2018. Risk Assessment: Do you want to hurt yourself or someone else? Patient reports no desire to harm self or others. Initial Sepsis Screen: Does the patient meet any 2 criteria? No. Patient's initial sepsis screen is negative. Does the patient have a suspected source of infection? No. Patient's initial sepsis screen is negative. Care prior to arrival: None. 13:43 Method Of Arrival: Ambulatory aa5 13:43 Acuity: JULIET 3 aa5 Triage Assessment: 13:50 General: Appears in no apparent distress. uncomfortable, Behavior is cooperative, bp appropriate for age, anxious. Pain: Complains of pain in abdomen. EENT: No deficits noted. Neuro: Level of Consciousness is awake, alert, obeys commands, Oriented to person, place, time, situation, Appropriate for age. Cardiovascular: No deficits noted. Respiratory: Airway is patent Respiratory effort is even, unlabored, Respiratory pattern is regular, symmetrical. GI: Reports lower abdominal pain. : No signs and/or symptoms were reported regarding the genitourinary system. Derm: No deficits noted. Musculoskeletal: Circulation, motion, and sensation intact. Range of motion: intact in all extremities. Historical: - Allergies: 13:44 does not like morphine; aa5 13:44 NKDA; aa5 - PMHx: 13:44 Diabetes - NIDDM; Hypertension; aa5 - PSHx: 13:44 Appendectomy; Cholecystectomy; Hysterectomy; aa5 - Immunization history:: Pneumococcal vaccine is up to date, Flu vaccine is up to date. - Social history:: Smoking status: Patient/guardian denies using tobacco. - Ebola Screening: : No symptoms or risks identified at this time. Screenin:45 Abuse screen: Denies threats or abuse. Denies injuries from another. Nutritional bp screening: No deficits noted. Tuberculosis screening: No symptoms or risk factors identified. Fall Risk None identified. Assessment: 13:45 General: SEE TRIAGE NOTE. bp 13:50 GI: Bowel sounds present X 4 quads. Abd is soft X 4 quads. bp 15:00 Reassessment: CT COMPLETED, RESULTS PENDING. bp 16:17 Reassessment: PT D/C HOME AMBULATORY WITH FAMILY, DX WITH COLITIS. bp Vital Signs: 13:44 BP 138 / 53; Pulse 67; Resp 18 S; Temp 98.7(TE); Pulse Ox 98% on R/A; Weight 72.57 kg aa5 (R); Height 4 ft. 9 in. (144.78 cm) (R); Pain 10/10; 14:59 BP 130 / 60; Pulse 57; Resp 20; Temp 98.4(O); Pulse Ox 99% on R/A; mh5 16:18 BP 141 / 61; Pulse 63; Resp 16; Temp 98.8; Pulse Ox 98% ; bp 13:44 Body Mass Index 34.62 (72.57 kg, 144.78 cm) aa5 ED Course: 13:27 Patient arrived in ED. mr 13:27 Walter Escobar MD is Private Physician. mr 13:43 Triage completed. aa5 13:45 Arm band placed on. aa5 13:48 Dorian Breaux, AILYN is Primary Nurse. bp 13:49 Orion Hernández PA is PHCP. jr8 13:49 Neeraj Burger MD is Attending Physician. jr8 14:19 Initial lab(s) drawn, by tx, sent to lab. Flu and/or RSV swab sent to lab. Inserted mh5 saline lock: 22 gauge in right antecubital area, using aseptic technique. Blood collected. 14:20 Patient has correct armband on for positive identification. Placed in gown. Bed in low mh5 position. Call light in reach. Side rails up X 1. Adult w/ patient. Warm blanket given. Pulse ox on. NIBP on. 14:20 Flu Sent. mh5 14:20 Lactate Sent. mh5 14:20 Basic Metabolic Panel Sent. mh5 14:20 CBC with Diff Sent. [facility] 14:20 Creatinine for Radiology Sent. [facility] 14:20 Hepatic Function Sent. [facility] 14:20 Lipase Sent. [facility] 14:32 Urine collected: clean catch specimen, cloudy. [facility] 14:37 Urine Microscopic Only Sent. 5 15:04 CT Abd/Pelvis - W/Contrast In Process Unspecified. EDNC 15:06 CT completed. Patient tolerated procedure well. Patient moved back from CT. 2 15:50 Walter Escobar MD is Referral Physician. 8 16:20 No provider procedures requiring assistance completed. IV discontinued, intact, bp bleeding controlled, No redness/swelling at site. Pressure dressing applied. Administered Medications: 15:45 Drug: Cipro 500 mg Route: PO; bp 16:17 Follow up: Response: No adverse reaction bp 15:45 Drug: Flagyl 500 mg Route: PO; bp 16:17 Follow up: Response: No adverse reaction bp Outcome: 15:50 Discharge ordered by . jr8 16:20 Discharged to home ambulatory, with family. bp 16:20 Condition: stable 16:20 Discharge instructions given to patient, family, Instructed on discharge instructions, follow up and referral plans. medication usage, Demonstrated understanding of instructions, follow-up care, medications, Prescriptions given X 3. 16:21 Patient left the ED. bp Signatures: Dispatcher [employer] [facility] Cindy GilbertMargaret, RN RN aa5 Orion Hernández PA PA Nani Rodriguez [facility] Jenifer Jackman 2 Dorian Breaux, RN RN bp Corrections: (The following items were deleted from the chart) 13:45 13:43 Presenting complaint: Patient states: intermittent generalized abd pain that aa5 began approximately 1 week ago and it's worse today. Denies vomiting/diarrhea. aa5
--- NOTE | 2018-10-18 15:51 | EDPHYS ---
Physician Documentation [facility] Name: Radha Laguna Age: 83 yrs Sex: Female : 1935 Arrival Date: 10/18/2018 Time: 13:27 Bed 14 Private MD: Walter Escobar ED Physician Neeraj Burger HPI: 10/18 14:38 This 83 yrs old Female presents to ER via Ambulatory with complaints of jr8 Abdominal Pain. 14:38 The patient presents with abdominal pain that is diffuse. Onset: The symptoms/episode jr8 began/occurred suddenly, 1 week(s) ago, and became worse. The symptoms do not radiate. Associated signs and symptoms: none. The symptoms are described as dull. Modifying factors: The symptoms are alleviated by nothing, the symptoms are aggravated by nothing. Severity of pain: At its worst the pain was mild in the emergency department the pain is unchanged. It is unknown whether or not the patient has had similar symptoms in the past. The patient has not recently seen a physician. Historical: - Allergies: 13:44 does not like morphine; aa5 13:44 NKDA; aa5 - PMHx: 13:44 Diabetes - NIDDM; Hypertension; aa5 - PSHx: 13:44 Appendectomy; Cholecystectomy; Hysterectomy; aa5 - Immunization history:: Pneumococcal vaccine is up to date, Flu vaccine is up to date. - Social history:: Smoking status: Patient/guardian denies using tobacco. - Ebola Screening: : No symptoms or risks identified at this time. ROS: 14:38 Eyes: Negative for injury, pain, redness, and discharge, ENT: Negative for injury, jr8 pain, and discharge, Neck: Negative for injury, pain, and swelling, Cardiovascular: Negative for chest pain, palpitations, and edema, Respiratory: Negative for shortness of breath, cough, wheezing, and pleuritic chest pain, Back: Negative for injury and pain, MS/Extremity: Negative for injury and deformity, Skin: Negative for injury, rash, and discoloration, Neuro: Negative for headache, weakness, numbness, tingling, and seizure. 14:38 Abdomen/GI: Positive for abdominal pain, Negative for nausea, vomiting, and diarrhea, abdominal distension, hematemesis, black/tarry stool, rectal bleeding, bowel incontinence, flatulence. Exam: 14:38 Eyes: Pupils equal round and reactive to light, extra-ocular motions intact. Lids and jr8 lashes normal. Conjunctiva and sclera are non-icteric and not injected. Cornea within normal limits. Periorbital areas with no swelling, redness, or edema. ENT: Nares patent. No nasal discharge, no septal abnormalities noted. Tympanic membranes are normal and external auditory canals are clear. Oropharynx with no redness, swelling, or masses, exudates, or evidence of obstruction, uvula midline. Mucous membranes moist. Neck: Trachea midline, no thyromegaly or masses palpated, and no cervical lymphadenopathy. Supple, full range of motion without nuchal rigidity, or vertebral point tenderness. No Meningismus. Cardiovascular: Regular rate and rhythm with a normal S1 and S2. No gallops, murmurs, or rubs. Normal PMI, no JVD. No pulse deficits. Respiratory: Lungs have equal breath sounds bilaterally, clear to auscultation and percussion. No rales, rhonchi or wheezes noted. No increased work of breathing, no retractions or nasal flaring. Back: No spinal tenderness. No costovertebral tenderness. Full range of motion. Skin: Warm, dry with normal turgor. Normal color with no rashes, no lesions, and no evidence of cellulitis. MS/ Extremity: Pulses equal, no cyanosis. Neurovascular intact. Full, normal range of motion. Neuro: Awake and alert, GCS 15, oriented to person, place, time, and situation. Cranial nerves II-XII grossly intact. Motor strength 5/5 in all extremities. Sensory grossly intact. Cerebellar exam normal. Normal gait. 14:38 Abdomen/GI: Inspection: abdomen appears normal, Bowel sounds: active, all quadrants, Palpation: soft, in all quadrants, moderate abdominal tenderness, in the abdomen diffusely, mass, is not appreciated, rebound tenderness, is not appreciated, voluntary guarding, is not appreciated, involuntary guarding, is not appreciated, no appreciated organomegaly, Indicators: McBurney's point is not tender, Garcia's sign is negative, Rovsing's sign is negative, Liver: tenderness, is not appreciated. Vital Signs: 13:44 BP 138 / 53; Pulse 67; Resp 18 S; Temp 98.7(TE); Pulse Ox 98% on R/A; Weight 72.57 kg aa5 (R); Height 4 ft. 9 in. (144.78 cm) (R); Pain 10/10; 14:59 BP 130 / 60; Pulse 57; Resp 20; Temp 98.4(O); Pulse Ox 99% on R/A; 5 16:18 BP 141 / 61; Pulse 63; Resp 16; Temp 98.8; Pulse Ox 98% ; bp 13:44 Body Mass Index 34.62 (72.57 kg, 144.78 cm) aa5 MDM: 13:49 Patient medically screened. jr8 15:51 Data reviewed: vital signs, nurses notes, lab test result(s), radiologic studies, CT [facility] scan. Data interpreted: Pulse oximetry: on room air is 99 %. Interpretation: normal. Counseling: I had a detailed discussion with the patient and/or guardian regarding: the historical points, exam findings, and any diagnostic results supporting the discharge/admit diagnosis, lab results, radiology results, the need for outpatient follow up, a family practitioner, to return to the emergency department if symptoms worsen or persist or if there are any questions or concerns that arise at home. ED course: Minimal diverticulitis and UTI present. Patient pain under control and minimal at this point. Able to tolerate fluids and food. No systemic WBC count. No other comorbid factors that would indicate hospital admission at this time. Knows to f/u. If worse to come back. 10/18 13:50 Order name: Basic Metabolic Panel; Complete Time: 14:49 [facility] 10/18 13:50 Order name: CBC with Diff; Complete Time: 14:36 [facility] 10/18 13:50 Order name: Creatinine for Radiology; Complete Time: 14:49 10/18 13:50 Order name: Hepatic Function; Complete Time: 14:49 [facility] 10/18 13:50 Order name: Lipase; Complete Time: 14:49 10/18 13:50 Order name: Lactate; Complete Time: 14:49 10/18 14:10 Order name: Flu 10/18 14:31 Order name: Urine Microscopic Only; Complete Time: 15:46 [facility] 10/18 14:41 Order name: Urine Dipstick--Ancillary (enter results) bd 10/18 14:41 Order name: Urine Dipstick-Ancillary; Complete Time: 14:54 [facility] 10/18 14:50 Order name: CT Abd/Pelvis - W/Contrast; Complete Time: 15:46 [facility] 10/18 15:42 Order name: Urine Culture [facility] 10/18 13:50 Order name: IV Saline Lock; Complete Time: 14:20 [facility] 10/18 13:50 Order name: Labs collected and sent; Complete Time: 14:20 [facility] 10/18 14:10 Order name: Urine Dipstick-Ancillary (obtain specimen); Complete Time: 14:34 [facility] Administered Medications: 15:45 Drug: Cipro 500 mg Route: PO; bp 16:17 Follow up: Response: No adverse reaction bp 15:45 Drug: Flagyl 500 mg Route: PO; bp 16:17 Follow up: Response: No adverse reaction bp Disposition: 16:45 Co-signature as Attending Physician, Neeraj Burger MD. ma2 Disposition: 10/18/18 15:50 Discharged to Home. Impression: Diverticulitis of large intestine without perforation or abscess without bleeding, Urinary tract infection, site not specified. - Condition is Stable. - Discharge Instructions: Diverticulitis, Urinary Tract Infection, Adult. - Prescriptions for Cipro 500 mg Oral Tablet - take 1 tablet by ORAL route every 12 hours for 10 days; 20 tablet. Flagyl 500 mg Oral Tablet - take 1 tablet by ORAL route every 6 hours for 10 days; 40 tablet. Tramadol 50 mg Oral Tablet - take 1 tablet by ORAL route every 8 hours as needed; 12 tablet. - Medication Reconciliation Form, Thank You Letter, Antibiotic Education, Prescription Opioid Use form. - Follow up: Walter Escobar MD; When: 2 - 3 days; Reason: Recheck today's complaints, Continuance of care, Re-evaluation by your physician. - Problem is new. - Symptoms have improved. Signatures: Dispatcher [employer] [facility] Margaret Denson, RN RN aa5 Orion Hernández PA PA jr8 Dorian Breaux RN RN Neeraj Miller MD MD ma2 Corrections: (The following items were deleted from the chart) 16:21 15:50 10/18/2018 15:50 Discharged to Home. Impression: Diverticulitis of large bp intestine without perforation or abscess without bleeding; Urinary tract infection, site not specified. Condition is Stable. Forms are Medication Reconciliation Form, Thank You Letter, Antibiotic Education, Prescription Opioid Use. Follow up: Walter Escobar; When: 2 - 3 days; Reason: Recheck today's complaints, Continuance of care, Re-evaluation by your physician. Problem is new. Symptoms have improved. jr8
[2018-10-18] MEDS ORDERED: CIPROFLOXACIN HCL 500 MG TAB ONE (16:02)
[2018-10-18] MEDS ORDERED: metroNIDAZOLE 500 MG TABLET ONE (16:02)
[2018-10-18 16:37] VITALS: BP 141/61; TEMP 98.8; O2SAT 98
== END 2018-10-18 16:21 | disposition home or self-care (01) ==
LOC: ER 13:25
DX: K57.32 Diverticulitis of large intestine without perforation or abscess without bleeding (principal); N39.0 Urinary tract infection, site not specified; I10 Essential (primary) hypertension
CPT/HCPCS: 87088; 85025; 87086; 80048; 36415; 80076; 83605; 83690; 87804 ×2; 74177; Q9967; 81003; 81015; 87077; 87186

== ENCOUNTER 2018-12-10 12:44 | Emergency (ER) | payer OTHER ==
[2018-12-10 13:49] LABS: Absolute Lymphocytes (CBC) 1.4 K/uL (0.7-4.9); Basophils % 0.9 % (0-1.3); Eosinophils % 0.4 % (0-4.4); Hematocrit 36.7 % (36.0-45.0); Lymphocytes % 21.1 % (15.3-44.8); MPV 8.2 fL (7.6-11.3); Monocytes % 7.6 % (3.3-12.3); RBC Red Blood Cell Count 4.28 M/uL (3.86-4.86)
[2018-12-10 14:04] LABS: Albumin 3.5 g/dL (3.4-5.0); Bilirubin Direct 0.1 mg/dL (0-0.2); Bilirubin Total 0.5 mg/dL (0.2-1.0); Potassium 3.9 mmol/L (3.5-5.1); Protein, Total 7.1 g/dL (6.4-8.2)
[2018-12-10] MEDS ORDERED: FENTANYL CITR 100 MCG/2 ML ONE ×2 (14:14→15:56)
[2018-12-10] MEDS ORDERED: ONDANSETRON 4 MG/2 ML VIAL ONE (14:14)
--- NOTE | 2018-12-10 15:26 | RAD REPORT ---
EXAM DESCRIPTION: CT - Abdomen Pelvis W Contrast - 12/10/2018 2:48 pm CLINICAL HISTORY: Abdominal pain COMPARISON: CT November 28, 2018, October 2015 TECHNIQUE: Biphasic, helical CT imaging of the abdomen and pelvis was performed following 100 ml non -ionic IV contrast. No oral contrast given. All CT scans are performed using dose optimization technique as appropriate and may include automated exposure control or mA/KV adjustment according to patient size. FINDINGS: No suspicious findings in the lung bases. The liver, spleen, and pancreas show no suspicious findings. Cholecystectomy clips are present. No bi liary tree dilatation. Symmetric renal function is seen with no hydronephrosis or suspicious renal mass. No pyelonephritis o r acute parenchymal process. Left adrenal gland is normal. A 3 centimeter fat containing right adrena l mass is present stable back to 2016. No urinary bladder wall thickening or mass. No bladder calculi. Punctate focus of air is profound lum en of the urinary bladder. No dilated bowel loops or bowel wall thickening. Moderate sigmoid diverticulosis present without dive rticulitis. No free air, free fluid or inflammatory stranding. No hernia, mass or bulky lymphadenopa thy. No suspicious bony findings. IMPRESSION: Sigmoid diverticulosis without diverticulitis. No acute GI process seen. Small focus of air within the lumen of the urinary bladder. This is usually due to catheterization pr ocedure rather than infection.Correlation is needed with any recent catheterization procedure.
[2018-12-10] MEDS ORDERED: MAGNE/ALUM HYDROXD 30 ML UCUP ONE (15:55)
[2018-12-10] MEDS ORDERED: CEFTRIAXONE/SWI 1gm 1 GM/10 ML SYR ONE (15:56)
[2018-12-10] MEDS ORDERED: LIDOCAINE VISCOUS 2% SOLN 15 ML UDC ONE (15:56)
[2018-12-10 16:22] LABS: Urine Blood TRACE (NEG); Urine Glucose NEGATIVE (NEG); Urine Protein NEGATIVE (NEG); Urine pH 6.5 (5.0-7.0)
--- NOTE | 2018-12-10 17:55 | ER ---
Nurse's Notes [facility] Name: Radha Laguna Age: 83 yrs Sex: Female : 1935 Arrival Date: 12/10/2018 Time: 12:48 Bed 24 Private MD: Walter Escobar Diagnosis: Urinary tract infection, site not specified;Generalized abdominal pain Presentation: 12/10 12:58 Presenting complaint: Patient states: generalized abd pain, nausea, generalized aa5 weakness that beganh 2-3 days ago. Pt states "I haven't been eating much at all because I just don't feel like it". 12:58 Transition of care: patient was not received from another setting of care. Onset of aa5 symptoms was November 2018. Risk Assessment: Do you want to hurt yourself or someone else? Patient reports no desire to harm self or others. Initial Sepsis Screen: Does the patient meet any 2 criteria? No. Patient's initial sepsis screen is negative. Does the patient have a suspected source of infection? No. Patient's initial sepsis screen is negative. Care prior to arrival: None. 12:58 Method Of Arrival: Ambulatory aa5 12:58 Acuity: JULIET 3 aa5 Historical: - Allergies: 13:06 NKDA; aa5 13:06 does not like morphine; aa5 - PMHx: 13:06 Diabetes - NIDDM; Hypertension; aa5 - PSHx: 13:06 Appendectomy; Cholecystectomy; Hysterectomy; aa5 - Immunization history:: Adult Immunizations unknown. - Social history:: Smoking status: Patient/guardian denies using tobacco. - Ebola Screening: : No symptoms or risks identified at this time. - : The history from the nurse's notes was reviewed. Screenin:11 Abuse screen: Denies threats or abuse. Denies injuries from another. Nutritional mg2 screening: No deficits noted. Tuberculosis screening: No symptoms or risk factors identified. Fall Risk None identified. Assessment: 13:47 General: Appears in no apparent distress. comfortable, Behavior is calm, cooperative. mg2 Pain: Complains of pain in abdomen Pain does not radiate. Pain currently is 4 out of 10 on a pain scale. Quality of pain is described as aching, Pain began gradually, 2-3 days ago. Neuro: Level of Consciousness is awake, alert, obeys commands, Oriented to person, place, time, situation. Cardiovascular: Capillary refill < 3 seconds Patient's skin is warm and dry. Respiratory: Airway is patent Respiratory effort is even, unlabored, Respiratory pattern is regular, symmetrical. GI: Bowel sounds present X 4 quads. Abd is soft. :. EENT: No signs and/or symptoms were reported regarding the EENT system. Derm: Skin is intact, is healthy with good turgor. Musculoskeletal: Circulation, motion, and sensation intact. Capillary refill < 3 seconds. 17:24 Reassessment: Patient denies pain at this time. Patient states feeling better. Patient mg2 states symptoms have improved. Vital Signs: 12:58 BP 180 / 63; Pulse 67; Resp 16 S; Temp 98.2(O); Pulse Ox 98% on R/A; aa5 13:15 BP 145 / 53 LA (auto/); Pulse 62; Pulse Ox 99% on R/A; jp3 15:15 BP 163 / 56; Pulse 62; Pulse Ox 100% on R/A; mg2 16:41 BP 138 / 52; Pulse 64; Resp 18; Pulse Ox 97% on R/A; mg2 ED Course: 12:48 Patient arrived in ED. mr 12:48 Walter Escobar MD is Private Physician. mr 12:53 Arm band placed on Patient placed in an exam room, on a stretcher. aa5 13:04 Triage completed. aa5 13:09 Osito Guadalupe, AILYN is Primary Nurse. mg2 13:09 Khalif Torres PA is PHCP. jmm 13:11 Douglas Gates MD is Attending Physician. jmm 13:13 Patient has correct armband on for positive identification. Pulse ox on. NIBP on. Door mg2 closed. Warm blanket given. 13:13 Pillow given. Verbal reassurance given. jp3 13:38 Inserted saline lock: 20 gauge in right antecubital area, using aseptic technique. mg2 Blood collected. 13:45 Radiology exam delayed due to lab results not completed at this time. (BUN/Creatinine). kw1 13:48 No provider procedures requiring assistance completed. mg2 14:11 Basic Metabolic Panel Sent. jp3 14:46 CT completed. Patient tolerated procedure well. Patient moved back from CT. bq 14:51 CT Abd/Pelvis - IV Contrast Only In Process Unspecified. EDMS 17:10 Walter Escobar MD is Referral Physician. jmm 17:24 IV discontinued, intact, bleeding controlled, No redness/swelling at site. Pressure mg2 dressing applied. Administered Medications: 14:14 Drug: Zofran 4 mg Route: IVP; Site: right antecubital; mg2 15:47 Follow up: Response: No adverse reaction; Marked relief of symptoms mg2 14:15 Drug: fentaNYL (PF) 25 mcg Route: IVP; Site: right antecubital; mg2 14:30 Follow up: Response: No adverse reaction; Marked relief of symptoms mg2 15:46 Drug: GI Cocktail without - (Maalox Suspension 30 ml, Lidocaine Liquid 2 % 15 mg2 ml) Route: PO; 16:40 Follow up: Response: No adverse reaction; Marked relief of symptoms mg2 15:46 Drug: Rocephin 1 grams Route: IV; Rate: calculated rate; Site: right antecubital; mg2 16:41 Follow up: Response: No adverse reaction; IV Status: Completed infusion mg2 15:47 Drug: fentaNYL (PF) 25 mcg Route: IVP; Site: right antecubital; mg2 16:41 Follow up: Response: No adverse reaction; Marked relief of symptoms mg2 Outcome: 17:10 Discharge ordered by MD. jmm 17:24 Discharged to home ambulatory, with family. mg2 17:24 Condition: stable 17:24 Discharge instructions given to patient, family, Instructed on discharge instructions, follow up and referral plans. medication usage, Demonstrated understanding of instructions, follow-up care, medications, Prescriptions given X 3. 17:25 Patient left the ED. mg2 Addendum: 12/12/2018 16:43 Addendum: Culture Results: Positive urine culture. Phone call Attempt #1 called s s patient's daughter who stated that patient was feeling better, but still having symptoms of UTI. Macrobid 100 mg PO BID x 10 days, # 20 called in per Roselyn Gonzalez NP to [facility] in [place]. Signatures: Dispatcher [employer] EDMS Khalif Torres PA PA jmm Vladimir Cindy HoneycuttKeyanaty Margaret Morfin RN RN aa5 Patti Ashton RN RN Monika Tapia 1 Osito Guadalupe RN RN Raúl Beverly jp3 Corrections: (The following items were deleted from the chart) 12/10 17:41 17:40 The history from the nurse's notes was reviewed. eros cooney
--- NOTE | 2018-12-10 17:56 | EDPHYS ---
Physician Documentation [facility] Name: Radha Laguna Age: 83 yrs Sex: Female : 1935 Arrival Date: 12/10/2018 Time: 12:48 Bed 24 Private MD: Walter Escobar ED Physician Douglas Gates HPI: 12/10 13:19 This 83 yrs old Female presents to ER via Ambulatory with complaints of jmm Abdominal Pain, General Weakness. 13:19 The patient presents with abdominal pain that is diffuse. Onset: The symptoms/episode jmm began/occurred gradually, 3 day(s) ago. The symptoms do not radiate. Associated signs and symptoms: Pertinent negatives: nausea and vomiting, diarrhea. Modifying factors: The symptoms are alleviated by nothing, the symptoms are aggravated by food. This is an 83 year old female with a history of dm, that presents to the ED with complaints of lower abdominal pain and decreased appetite. Patient has had similar episodes in the past with episodes of diverticulitis. . Historical: - Allergies: 13:06 NKDA; aa5 13:06 does not like morphine; aa5 - PMHx: 13:06 Diabetes - NIDDM; Hypertension; aa5 - PSHx: 13:06 Appendectomy; Cholecystectomy; Hysterectomy; aa5 - Immunization history:: Adult Immunizations unknown. - Social history:: Smoking status: Patient/guardian denies using tobacco. - Ebola Screening: : No symptoms or risks identified at this time. - : The history from the nurse's notes was reviewed. ROS: 13:18 Cardiovascular: Negative for chest pain, palpitations, and edema, Respiratory: Negative jmm for shortness of breath, cough, wheezing, and pleuritic chest pain. 13:18 Back: Negative for injury and pain, : Negative for injury, bleeding, discharge, and swelling, MS/Extremity: Negative for injury and deformity, Skin: Negative for injury, rash, and discoloration. 13:18 Abdomen/GI: Positive for abdominal pain. 13:18 Neuro: Positive for weakness. 13:18 All other systems are negative. 17:40 Constitutional: Negative for fever, chills, and weight loss. jmm Exam: 13:18 Head/Face: atraumatic. Eyes: EOMI, no conjunctival erythema appreciated ENT: Moist jmm Mucus Membranes Neck: Trachea midline, Supple Chest/axilla: Normal chest wall appearance and motion. Cardiovascular: Regular rate and rhythm. No edema appreciated Respiratory: Normal respirations, no respiratory distress appreciated 13:18 Skin: General appearance color normal MS/ Extremity: Moves all extremities, no obvious deformities appreciated, no edema noted to the lower extremities Neuro: Awake and alert, normal gait Psych: Behavior is normal, Mood is normal, Patient is cooperative and pleasant 13:18 Constitutional: The patient appears alert, awake, uncomfortable. 13:18 Abdomen/GI: Inspection: obese Bowel sounds: normal, Palpation: soft, mild abdominal tenderness, in the suprapubic area. Vital Signs: 12:58 BP 180 / 63; Pulse 67; Resp 16 S; Temp 98.2(O); Pulse Ox 98% on R/A; aa5 13:15 BP 145 / 53 LA (auto/); Pulse 62; Pulse Ox 99% on R/A; jp3 15:15 BP 163 / 56; Pulse 62; Pulse Ox 100% on R/A; mg2 16:41 BP 138 / 52; Pulse 64; Resp 18; Pulse Ox 97% on R/A; mg2 MDM: 13:19 Patient medically screened. robson 17:10 Data reviewed: vital signs, nurses notes. Counseling: I had a detailed discussion with jmm the patient and/or guardian regarding: the historical points, exam findings, and any diagnostic results supporting the discharge/admit diagnosis, radiology results, the need for outpatient follow up, to return to the emergency department if symptoms worsen or persist or if there are any questions or concerns that arise at home. 17:10 ED course: Pain has decreased in the ED. CT imaging negative. Symptoms may be due to jmm ulcer along with cystitis. Family advised to closely follow up with pcp tomorrow for reevalulation and otherwise given strict return precautions. Family understood and agrees with the plan of care. . 12/10 13:27 Order name: Basic Metabolic Panel mg2 12/10 13:27 Order name: CBC with Diff; Complete Time: 14:27 mg2 12/10 13:27 Order name: Creatinine for Radiology; Complete Time: 14:27 mg2 12/10 13:27 Order name: Hepatic Function; Complete Time: 14:27 mg2 12/10 13:27 Order name: Lipase; Complete Time: 14:27 mg2 12/10 13:28 Order name: Basic Metabolic Panel; Complete Time: 14:27 EDMS 12/10 13:41 Order name: CT Abd/Pelvis - IV Contrast Only; Complete Time: 15:27 jmm 12/10 14:14 Order name: Urine Culture mg2 12/10 15:59 Order name: Urine Dipstick--Ancillary (enter results); Complete Time: 16:29 bd 12/10 13:27 Order name: IV Saline Lock; Complete Time: 13:38 mg2 12/10 13:27 Order name: Labs collected and sent; Complete Time: 13:38 mg2 12/10 14:14 Order name: Urine Dipstick-Ancillary (obtain specimen); Complete Time: 14:14 mg2 Administered Medications: 14:14 Drug: Zofran 4 mg Route: IVP; Site: right antecubital; mg2 15:47 Follow up: Response: No adverse reaction; Marked relief of symptoms mg2 14:15 Drug: fentaNYL (PF) 25 mcg Route: IVP; Site: right antecubital; mg2 14:30 Follow up: Response: No adverse reaction; Marked relief of symptoms mg2 15:46 Drug: GI Cocktail without - (Maalox Suspension 30 ml, Lidocaine Liquid 2 % 15 mg2 ml) Route: PO; 16:40 Follow up: Response: No adverse reaction; Marked relief of symptoms mg2 15:46 Drug: Rocephin 1 grams Route: IV; Rate: calculated rate; Site: right antecubital; mg2 16:41 Follow up: Response: No adverse reaction; IV Status: Completed infusion mg2 15:47 Drug: fentaNYL (PF) 25 mcg Route: IVP; Site: right antecubital; mg2 16:41 Follow up: Response: No adverse reaction; Marked relief of symptoms mg2 Disposition: 12/11 10:10 Co-signature as Attending Physician, Douglas Gates MD I agree with the assessment and robson plan of care. Disposition: 12/10/18 17:10 Discharged to Home. Impression: Urinary tract infection, site not specified, Generalized abdominal pain. - Condition is Stable. - Discharge Instructions: Abdominal Pain, Adult, Urinary Tract Infection, Adult. - Prescriptions for Zofran ODT 4 mg Oral tablet,disintegrating - place 1 tablet by TRANSLINGUAL route every 4-6 hours; 20 tablet. Pepcid 20 mg Oral Tablet - take 1 tablet by ORAL route every 12 hours for 10 days; 20 tablet. Cephalexin 500 mg Oral Capsule - take 1 capsule by ORAL route every 12 hours for 10 days; 20 capsule. - Medication Reconciliation Form, Thank You Letter, Antibiotic Education, Prescription Opioid Use form. - Follow up: Walter Escobar MD; When: Tomorrow; Reason: Recheck today's complaints, Continuance of care, Re-evaluation by your physician. Signatures: Dispatcher [employer] EDMS Douglas Gates MD MD cha Mickail, Joel, PA PA Margaret Mendez, RN RN aa5 Osito Guadalupe, AILYN RN mg2 Corrections: (The following items were deleted from the chart) 12/10 17:25 17:10 12/10/2018 17:10 Discharged to Home. Impression: Urinary tract infection, site mg2 not specified; Generalized abdominal pain. Condition is Stable. Forms are Medication Reconciliation Form, Thank You Letter, Antibiotic Education, Prescription Opioid Use. Follow up: Walter Escobar; When: Tomorrow; Reason: Recheck today's complaints, Continuance of care, Re-evaluation by your physician. [facility] 17:41 17:40 The history from the nurse's notes was reviewed. [facility] 17:41 13:19 This is an 83 year old female with a history of dm, that presents to the ED with [facility] complaints of lower abdominal pain and decreased . mary
[2018-12-10 18:30] VITALS: TEMP 98.2
[2018-12-10 18:34] VITALS: BP 138/52; O2SAT 97
== END 2018-12-10 17:25 | disposition home or self-care (01) ==
LOC: ER 12:44
DX: N39.0 Urinary tract infection, site not specified (principal); I10 Essential (primary) hypertension
CPT/HCPCS: 96365; 87088; 85025; 87086; 80048; 36415; 80076; 81003; 83690; 74177; 96375; 99284; Q9967; J3010 ×2; J0696; J2405; 87077; 87186

== ENCOUNTER 2019-01-02 20:46 | Emergency (ER) | payer OTHER ==
[2019-01-02 21:41] LABS: Urine Blood 1+ (NEG); Urine Glucose NEGATIVE (NEG); Urine Protein NEGATIVE (NEG)
[2019-01-02 22:45] LABS: Absolute Lymphocytes (CBC) 2.1 K/uL (0.7-4.9); Basophils % 0.5 % (0-1.3); Eosinophils % 1.4 % (0-4.4); Hematocrit 37.6 % (36.0-45.0); Lymphocytes % 27.5 % (15.3-44.8); MPV 8.6 fL (7.6-11.3); Monocytes % 10.6 % (3.3-12.3); RBC Red Blood Cell Count 4.33 M/uL (3.86-4.86)
[2019-01-02 22:47] LABS: Albumin 3.6 g/dL (3.4-5.0); Bilirubin Direct 0.1 mg/dL (0-0.2); Bilirubin Total 0.4 mg/dL (0.2-1.0); Potassium 3.3 mmol/L (3.5-5.1); Protein, Total 7.2 g/dL (6.4-8.2)
[2019-01-02] MEDS ORDERED: FENTANYL CITR 100 MCG/2 ML ONE (23:00)
[2019-01-02] MEDS ORDERED: ONDANSETRON 4 MG/2 ML VIAL ONE (23:00)
[2019-01-02 23:57] LABS: Urine Bacteria <20 /HPF (<20); Urine Culture Reflex Order NOT NEEDED; Urine RBC <5 /HPF (NONE SEEN)
--- NOTE | 2019-01-03 01:16 | EDPHYS ---
Physician Documentation [facility] Name: Radha Laguna Age: 83 yrs Sex: Female : 1935 Arrival Date: 01/02/2019 Time: 20:49 Bed 19 Private MD: Walter Escobar ED Physician Augustin Florentino HPI: 01/02 22:29 This 83 yrs old Female presents to ER via Ambulatory with complaints of pm1 Abdominal Pain. 22:29 The patient presents with abdominal pain in the epigastric area. Onset: The pm1 symptoms/episode began/occurred 1 week(s) ago. The symptoms do not radiate. Associated signs and symptoms: none. Pertinent negatives: nausea, vomiting, and diarrhea, chest pain, shortness of breath. The symptoms are described as burning. Modifying factors: the symptoms are aggravated by food. Severity of pain: in the emergency department the pain is actually worse. The patient has experienced similar episodes in the past, has appointment to see GI tomorrow. Patient seen in this ER about 1 month ago with same complaints and was diagnosed with UTI. Historical: - Allergies: 21:12 does not like morphine; tl2 21:12 NKDA; tl2 - Home Meds: 21:12 amlodipine 10 mg tab 1 tab once daily [Active]; Januvia 100 mg Oral tab 1 tab once tl2 daily [Active]; lovastatin 20 mg Oral tab 1 tab once daily [Active]; telmisartan-hydrochlorothiazid 80-12.5 mg Oral tab 1 tab once daily [Active]; [place] 5-325 mg Oral tab 1 tab as needed for Pain [Active]; Lyrica Oral 50 mg 2 times per day [Active]; - PMHx: 21:12 Diabetes - NIDDM; Hypertension; tl2 - PSHx: 21:12 Cholecystectomy; Appendectomy; Hysterectomy; tl2 - Immunization history:: Adult Immunizations up to date. - Social history:: Smoking status: Patient/guardian denies using tobacco. - Ebola Screening: : No symptoms or risks identified at this time. ROS: 22:29 Constitutional: Negative for fever, chills, and weight loss, Eyes: Negative for injury, pm1 pain, redness, and discharge, ENT: Negative for injury, pain, and discharge, Neck: Negative for injury, pain, and swelling, Cardiovascular: Negative for chest pain, palpitations, and edema, Respiratory: Negative for shortness of breath, cough, wheezing, and pleuritic chest pain. 22:29 Back: Negative for injury and pain, : Negative for injury, bleeding, discharge, and swelling, MS/Extremity: Negative for injury and deformity, Skin: Negative for injury, rash, and discoloration, Neuro: Negative for headache, weakness, numbness, tingling, and seizure. 22:29 Abdomen/GI: Positive for abdominal pain, Negative for nausea, vomiting, and diarrhea, constipation. Exam: 22:29 Constitutional: This is a well developed, well nourished patient who is awake, alert, pm1 and in no acute distress. Head/Face: Normocephalic, atraumatic. Eyes: Pupils equal round and reactive to light, extra-ocular motions intact. Lids and lashes normal. Conjunctiva and sclera are non-icteric and not injected. Cornea within normal limits. Periorbital areas with no swelling, redness, or edema. ENT: Nares patent. No nasal discharge, no septal abnormalities noted. Tympanic membranes are normal and external auditory canals are clear. Oropharynx with no redness, swelling, or masses, exudates, or evidence of obstruction, uvula midline. Mucous membranes moist. Neck: Trachea midline, no thyromegaly or masses palpated, and no cervical lymphadenopathy. Supple, full range of motion without nuchal rigidity, or vertebral point tenderness. No Meningismus. Chest/axilla: Normal chest wall appearance and motion. Nontender with no deformity. No lesions are appreciated. Cardiovascular: Regular rate and rhythm with a normal S1 and S2. No gallops, murmurs, or rubs. Normal PMI, no JVD. No pulse deficits. Respiratory: Lungs have equal breath sounds bilaterally, clear to auscultation and percussion. No rales, rhonchi or wheezes noted. No increased work of breathing, no retractions or nasal flaring. 22:29 Back: No spinal tenderness. No costovertebral tenderness. Full range of motion. Skin: Warm, dry with normal turgor. Normal color with no rashes, no lesions, and no evidence of cellulitis. MS/ Extremity: Pulses equal, no cyanosis. Neurovascular intact. Full, normal range of motion. 22:29 Abdomen/GI: Inspection: abdomen appears normal, Bowel sounds: normal, Palpation: soft, mild abdominal tenderness, in the epigastric area, mass, is not appreciated, rebound tenderness, is not appreciated. 22:29 Neuro: Orientation: is normal, Motor: is normal, moves all fours. Vital Signs: 21:12 BP 169 / 71; Pulse 65; Resp 18; Temp 98(O); Pulse Ox 99% on R/A; Weight 70.76 kg; tl2 Height 4 ft. 11 in. (149.86 cm); Pain 5/10; 22:00 BP 167 / 58; Pulse 64; Resp 17 S; Pulse Ox 98% on R/A; cc3 23:18 BP 165 / 69; Pulse 65; Resp 17 S; Pulse Ox 100% on R/A; cc3 01/03 00:23 BP 171 / 58; Pulse 63; Resp 18 S; Pulse Ox 100% on R/A; cc3 01:18 BP 159 / 63; Pulse 65; Resp 17 S; Pulse Ox 100% on R/A; cc3 01/02 21:12 Body Mass Index 31.51 (70.76 kg, 149.86 cm) tl2 MDM: 01/02 21:49 Patient medically screened. pm1 01/03 01:15 Data reviewed: vital signs. Data interpreted: Pulse oximetry: on room air is 100 %. pm1 Interpretation: normal. Counseling: I had a detailed discussion with the patient and/or guardian regarding: the historical points, exam findings, and any diagnostic results supporting the discharge/admit diagnosis, lab results, radiology results, the need for outpatient follow up, to return to the emergency department if symptoms worsen or persist or if there are any questions or concerns that arise at home. 01/02 21:28 Order name: Urine Dipstick--Ancillary (enter results); Complete Time: 21:43 2 01/02 21:49 Order name: Basic Metabolic Panel pm1 01/02 22:22 Order name: Basic Metabolic Panel; Complete Time: 23:07 EDSD 01/02 22:22 Order name: Liver (Hepatic) Function; Complete Time: 23:07 EDSD 01/02 22:22 Order name: Lipase; Complete Time: 23:07 EDSD 01/02 22:23 Order name: Creatinine (Radiology Only); Complete Time: 23:07 EDSD 01/02 22:23 Order name: CBC with Automated Diff; Complete Time: 23:07 [facility] 01/02 22:23 Order name: Urine Microscopic Only; Complete Time: 00:23 [facility] 01/02 21:49 Order name: IV Saline Lock; Complete Time: 22:19 pm1 01/02 21:49 Order name: Labs collected and sent; Complete Time: 22:19 pm1 01/02 21:50 Order name: CT Abd/Pelvis - IV Contrast Only pm1 Administered Medications: 01/02 22:40 Drug: fentaNYL (PF) 25 mcg Route: IVP; Site: right antecubital; cc3 23:30 Follow up: Response: No adverse reaction; Pain is decreased cc3 22:45 Drug: Zofran 4 mg Route: IVP; Site: right antecubital; cc3 23:30 Follow up: Response: No adverse reaction; Nausea is decreased cc3 Disposition: 01/03 04:27 Co-signature as Attending Physician, Augustin Florentino MD. pkl Disposition: 01/03/19 01:15 Discharged to Home. Impression: Unspecified abdominal pain. - Condition is Stable. - Discharge Instructions: Abdominal Pain, Adult. - Prescriptions for Pepcid 20 mg Oral Tablet - take 1 tablet by ORAL route every 12 hours for 10 days; 20 tablet. - Medication Reconciliation Form, Thank You Letter, Antibiotic Education, Prescription Opioid Use form. - Follow up: Emergency Department; When: As needed; Reason: Worsening of condition. Follow up: Private Physician; When: 2 - 3 days; Reason: Recheck today's complaints, Continuance of care, Re-evaluation by your physician. - Problem is new. - Symptoms have improved. Signatures: Dispatcher [employer] Augustin Crowley MD MD pkl Irvin Marcial NP MANAGER [employer]LECT[employer] pm1 Sera Bernardo RN RN tl2 Joellen Méndez cc3 Corrections: (The following items were deleted from the chart) 01/02 23:59 22:25 Creatinine for Radiology+C.LAB.BRZ ordered. [facility] 23:59 22:25 UA MICROSCOPIC+U.LAB.BRZ ordered. [facility] 01/03 00:01 01/02 22:25 Basic Metabolic Panel ordered. [facility] 01/03 00:01 01/02 22:25 CBC+H.LAB.BRZ ordered. [facility] 01/03 00:02 01/02 22:25 HEPATIC FUNCTION+C.LAB.BRZ ordered. [facility] 01/03 00:02 01/02 22:25 LIPASE+C.LAB.BRZ ordered. [facility] 01/03 01:44 01:15 01/03/2019 01:15 Discharged to Home. Impression: Unspecified abdominal pain. cc3 Condition is Stable. Forms are Medication Reconciliation Form, Thank You Letter, Antibiotic Education, Prescription Opioid Use. Follow up: Emergency Department; When: As needed; Reason: Worsening of condition. Follow up: Private Physician; When: 2 - 3 days; Reason: Recheck today's complaints, Continuance of care, Re-evaluation by your physician. Problem is new. Symptoms have improved. pm1
--- NOTE | 2019-01-03 01:16 | ER ---
Nurse's Notes [facility] Name: Radha Laguna Age: 83 yrs Sex: Female : 1935 Arrival Date: 01/02/2019 Time: 20:49 Bed 19 Private MD: Walter Escobar Diagnosis: Unspecified abdominal pain Presentation: 01/02 21:11 Presenting complaint: Patient states: possible UTI symptoms, abdominal pain and body tl2 aches x 1 week. Transition of care: patient was not received from another setting of care. Onset of symptoms was December 26, 2018. Risk Assessment: Do you want to hurt yourself or someone else? Patient reports no desire to harm self or others. Initial Sepsis Screen: Does the patient meet any 2 criteria? No. Patient's initial sepsis screen is negative. Does the patient have a suspected source of infection? No. Patient's initial sepsis screen is negative. Care prior to arrival: None. 21:11 Method Of Arrival: Ambulatory tl2 21:11 Acuity: JULIET 3 tl2 Triage Assessment: 21:04 General: Appears in no apparent distress. uncomfortable, Behavior is calm, cooperative, cc3 appropriate for age. 21:12 GI: Reports lower abdominal pain. : Reports burning with urination, pain. tl2 Historical: - Allergies: 21:12 does not like morphine; tl2 21:12 NKDA; tl2 - Home Meds: 21:12 amlodipine 10 mg tab 1 tab once daily [Active]; Januvia 100 mg Oral tab 1 tab once tl2 daily [Active]; lovastatin 20 mg Oral tab 1 tab once daily [Active]; telmisartan-hydrochlorothiazid 80-12.5 mg Oral tab 1 tab once daily [Active]; [place] 5-325 mg Oral tab 1 tab as needed for Pain [Active]; Lyrica Oral 50 mg 2 times per day [Active]; - PMHx: 21:12 Diabetes - NIDDM; Hypertension; tl2 - PSHx: 21:12 Cholecystectomy; Appendectomy; Hysterectomy; tl2 - Immunization history:: Adult Immunizations up to date. - Social history:: Smoking status: Patient/guardian denies using tobacco. - Ebola Screening: : No symptoms or risks identified at this time. Screenin:13 Abuse screen: Denies threats or abuse. Nutritional screening: No deficits noted. tl2 Tuberculosis screening: No symptoms or risk factors identified. Fall Risk None identified. Assessment: 21:04 General: Appears in no apparent distress. uncomfortable, Behavior is calm, cooperative, cc3 appropriate for age. Pain: Complains of pain in pain on urination, lower abdomen. Neuro: Level of Consciousness is awake, alert, obeys commands, Oriented to person, place, time, situation, Appropriate for age. Cardiovascular: Denies chest pain, Capillary refill < 3 seconds Patient's skin is warm and dry. Respiratory: Airway is patent Respiratory effort is even, unlabored, Respiratory pattern is regular, symmetrical. GI: GI: Abdomen is round non-distended, Bowel sounds present X 4 quads. Abd is soft and non tender X 4 quads. : Parent/caregiver report the patient having burning with urination. EENT: No signs and/or symptoms were reported regarding the EENT system. Derm: Skin is intact, is fragile, Skin is pink, warm \T\ dry. normal. Musculoskeletal: Circulation, motion, and sensation intact. Range of motion: intact in all extremities. 22:30 Reassessment: Patient appears in no apparent distress at this time. Patient and/or cc3 family updated on plan of care and expected duration. Pain level reassessed. Patient is alert, oriented x 3, equal unlabored respirations, skin warm/dry/pink. 23:13 Reassessment: Patient appears in no apparent distress at this time. Patient and/or cc3 family updated on plan of care and expected duration. Pain level reassessed. Patient is alert, oriented x 3, equal unlabored respirations, skin warm/dry/pink. Patient taken to CT scan department by the telecommunications field technician by adriana. 23:35 Reassessment: Patient appears in no apparent distress at this time. Patient and/or cc3 family updated on plan of care and expected duration. Pain level reassessed. Patient is alert, oriented x 3, equal unlabored respirations, skin warm/dry/pink. Patient came back from CT scan department, awaiting result. 01/03 00:37 Reassessment: Patient appears in no apparent distress at this time. Patient and/or cc3 family updated on plan of care and expected duration. Pain level reassessed. Patient is alert, oriented x 3, equal unlabored respirations, skin warm/dry/pink. 01:40 Reassessment: Patient appears in no apparent distress at this time. Patient and/or cc3 family updated on plan of care and expected duration. Pain level reassessed. Patient is alert, oriented x 3, equal unlabored respirations, skin warm/dry/pink. KAMI Marcial discharged the patient home with prescription given. IV cannula removed and patient left ER vitally stable and ambulatory with her family. No valuables left in the patient's room. Patient denies pain at this time. Patient states feeling better. Patient states symptoms have improved. Vital Signs: 01/02 21:12 BP 169 / 71; Pulse 65; Resp 18; Temp 98(O); Pulse Ox 99% on R/A; Weight 70.76 kg; tl2 Height 4 ft. 11 in. (149.86 cm); Pain 5/10; 22:00 BP 167 / 58; Pulse 64; Resp 17 S; Pulse Ox 98% on R/A; cc3 23:18 BP 165 / 69; Pulse 65; Resp 17 S; Pulse Ox 100% on R/A; cc3 01/03 00:23 BP 171 / 58; Pulse 63; Resp 18 S; Pulse Ox 100% on R/A; cc3 01:18 BP 159 / 63; Pulse 65; Resp 17 S; Pulse Ox 100% on R/A; cc3 01/02 21:12 Body Mass Index 31.51 (70.76 kg, 149.86 cm) tl2 ED Course: 01/02 20:49 Patient arrived in ED. am2 20:49 Walter Escobar MD is Private Physician. am2 21:04 Joellen Méndez is Primary Nurse. cc3 21:05 Irvin Marcial NP is PHCP. pm1 21:05 Augustin Florentino MD is Attending Physician. pm1 21:11 Triage completed. tl2 21:12 Arm band placed on right wrist. tl2 21:13 Patient has correct armband on for positive identification. Bed in low position. Call tl2 light in reach. Side rails up X 1. Adult w/ patient. 22:10 Inserted saline lock: 20 gauge in right antecubital area, using aseptic technique. cc3 Blood collected. 22:28 Radiology exam delayed due to lab results not completed at this time. (BUN/Creatinine). vm2 23:31 CT completed. Patient tolerated procedure well. Patient moved to CT via stretcher. Patient moved back from CT. 23:39 CT Abd/Pelvis - IV Contrast Only In Process Unspecified. EDMS 01/03 01:40 No provider procedures requiring assistance completed. IV discontinued, intact, cc3 bleeding controlled, No redness/swelling at site. Pressure dressing applied. Administered Medications: 01/02 22:40 Drug: fentaNYL (PF) 25 mcg Route: IVP; Site: right antecubital; cc3 23:30 Follow up: Response: No adverse reaction; Pain is decreased cc3 22:45 Drug: Zofran 4 mg Route: IVP; Site: right antecubital; cc3 23:30 Follow up: Response: No adverse reaction; Nausea is decreased cc3 Outcome: 01/03 01:15 Discharge ordered by . pm1 01:40 Discharged to home ambulatory, with family. cc3 01:40 Condition: stable 01:40 Discharge instructions given to patient, family, Instructed on discharge instructions, follow up and referral plans. medication usage, Demonstrated understanding of instructions, follow-up care, medications, Prescriptions given X 1. 01:44 Patient left the ED. cc3 Signatures: Dispatcher [employer] EDNE Steven Schroeder Irvin Marcial, KAMI PODIATRY DOCTOR pm1 Sera Bernardo, AILYN RN vivi2 Neena Lynn Victoria 2 Joellen Méndez cc3
[2019-01-03 01:53] VITALS: TEMP 98
[2019-01-03 01:55] VITALS: O2SAT 100
[2019-01-03 01:56] VITALS: BP 171/58
--- NOTE | 2019-01-04 09:43 | RAD REPORT ---
EXAM DESCRIPTION: CT - Abdomen Pelvis W Contrast - 01/03/2019 5:59 am CLINICAL HISTORY: Abdominal pain. COMPARISON: 12/10/2018 TECHNIQUE: CT scan of the abdomen and pelvis was performed with IV contrast. This exam was performed according to our departmental dose-optimization program, which includes automated exposure control, adjustment of the mA and/or kV according to patient size and/or use of iterative reconstruction techn ique. FINDINGS: The lung bases are clear. No pleural or pericardial effusions. There is no hiatal hernia. There has been a prior cholecystectomy. The liver, spleen, pancreas, left adrenal gland, and kidneys are normal without hydronephrosis or obstructing urinary stones. There has been a prior hysterectomy. Stable 3 cm fat-containing right adrenal adenoma. There has been a prior appendectomy. There are scattered colonic diverticula without surrounding infl ammatory changes. No small bowel obstruction. No intraperitoneal free fluid or free air is seen. The aorta is normal caliber and contains atherosclerotic calcifications. There are mild degenerative changes of the spine. No body wall hernia. IMPRESSION: No acute abdominal or pelvic pathology. Electronically signed by: Ramírez Salas MD 01/02/2019 11:53 PM CDT Due to temporary technical issues with the PACS/Fluency reporting system, reports are being signed by the in house radiologist as a courtesy to ensure prompt reporting. The interpreting radiologist is f ully responsible for the content of the report.
== END 2019-01-03 01:44 | disposition home or self-care (01) ==
LOC: ER 20:46
DX: R10.13 Epigastric pain (principal); I10 Essential (primary) hypertension; E11.9 Type 2 diabetes mellitus without complications
CPT/HCPCS: 85025; 80048; 36415; 80076; 83690; 74177; Q9967; J3010; J2405; 81003; 81015; 96374; 96375; 99284

== ENCOUNTER 2019-02-09 23:35 | Emergency (ER) | payer OTHER ==
[2019-02-10] MEDS ORDERED: NA CHLORIDE 0.9% 500 ML ONE (01:39)
[2019-02-10 01:43] LABS: Basophils % 0.6 % (0-1.3); Hematocrit 40.1 % (36.0-45.0); Lymphocytes % 24.2 % (15.3-44.8); MPV 8.4 fL (7.6-11.3); RBC Red Blood Cell Count 4.59 M/uL (3.86-4.86)
[2019-02-10 02:22] LABS: Bilirubin Direct 0.2 mg/dL (0-0.2); Bilirubin Total 0.4 mg/dL (0.2-1.0); Potassium 4.2 mmol/L (3.5-5.1); Protein, Total 7.9 g/dL (6.4-8.2); Troponin (Emerg Dept Use Only) 0.02 ng/mL (0.0-0.045)
--- NOTE | 2019-02-10 04:49 | ER ---
Nurse's Notes [facility] Name: Radha Laguna Age: 83 yrs Sex: Female : 1935 Arrival Date: 02/09/2019 Time: 23:38 Bed 20 Private MD: Walter Escobar Diagnosis: Hypertension;Nausea Presentation: 02/09 23:49 Presenting complaint: Significant other states: my mother has epigastric pain and mg2 nausea since tonight. denies vomiting, BP at home 194/104 mmHg. she took NTG SL an hour ago. Transition of care: patient was not received from another setting of care. Onset of symptoms was February 09, 2019. Risk Assessment: Do you want to hurt yourself or someone else? Patient reports no desire to harm self or others. Initial Sepsis Screen: Does the patient meet any 2 criteria? No. Patient's initial sepsis screen is negative. Does the patient have a suspected source of infection? No. Patient's initial sepsis screen is negative. Care prior to arrival: None. 23:49 Method Of Arrival: Wheelchair mg2 23:49 Acuity: JULIET 3 mg2 Triage Assessment: 23:57 General: Appears in no apparent distress. comfortable, Behavior is calm, cooperative, cc3 appropriate for age. Pain: Denies pain. GI: Reports nausea. Historical: - Allergies: 23:53 does not like morphine; mg2 - Home Meds: 23:53 amlodipine 10 mg tab 1 tab once daily [Active]; mg2 23:57 Januvia 100 mg Oral tab 1 tab once daily [Active]; lovastatin 20 mg Oral tab 1 tab once cc3 daily [Active]; Lyrica Oral 50 mg 2 times per day [Active]; [place] 5-325 mg Oral tab 1 tab as needed for Pain [Active]; telmisartan-hydrochlorothiazid 80-12.5 mg Oral tab 1 tab once daily [Active]; - PMHx: 23:53 Diabetes - NIDDM; Hypertension; mg2 - PSHx: 23:53 Hysterectomy; Cholecystectomy; Appendectomy; mg2 - Immunization history:: Flu vaccine is up to date. - Social history:: Smoking status: Patient/guardian denies using tobacco, Patient/guardian denies using alcohol, street drugs, IV drugs. - Ebola Screening: : No symptoms or risks identified at this time. Screenin:53 Abuse screen: Denies threats or abuse. Denies injuries from another. Nutritional mg2 screening: No deficits noted. Tuberculosis screening: No symptoms or risk factors identified. Fall Risk. Assessment: 23:57 General: Appears in no apparent distress. comfortable, Behavior is calm, cooperative, cc3 appropriate for age. Pain: Denies pain. Neuro: Level of Consciousness is awake, alert, obeys commands, Oriented to person, place, time, situation, Appropriate for age. Cardiovascular: Denies chest pain, Capillary refill < 3 seconds Patient's skin is warm and dry. Respiratory: Airway is patent Respiratory effort is even, unlabored, Respiratory pattern is regular, symmetrical. GI: Abdomen is round obese. : No signs and/or symptoms were reported regarding the genitourinary system. EENT: No signs and/or symptoms were reported regarding the EENT system. Derm: Skin is intact, is healthy with good turgor, Skin is pink, warm \T\ dry. normal. Musculoskeletal: Circulation, motion, and sensation intact. Range of motion: intact in all extremities. 02/10 00:15 Reassessment: Patient appears in no apparent distress at this time. Patient and/or cc3 family updated on plan of care and expected duration. Pain level reassessed. Patient is alert, oriented x 3, equal unlabored respirations, skin warm/dry/pink. 01:20 Reassessment: Patient appears in no apparent distress at this time. Patient and/or cc3 family updated on plan of care and expected duration. Pain level reassessed. Patient is alert, oriented x 3, equal unlabored respirations, skin warm/dry/pink. Patient denies pain at this time. 02:26 Reassessment: Patient appears in no apparent distress at this time. Patient and/or cc3 family updated on plan of care and expected duration. Pain level reassessed. Patient is alert, oriented x 3, equal unlabored respirations, skin warm/dry/pink. Patient denies pain at this time. 03:49 Reassessment: Patient appears in no apparent distress at this time. Patient and/or cc3 family updated on plan of care and expected duration. Pain level reassessed. Patient is alert, oriented x 3, equal unlabored respirations, skin warm/dry/pink. Patient denies pain at this time. 04:15 Reassessment: Patient appears in no apparent distress at this time. Patient and/or cc3 family updated on plan of care and expected duration. Pain level reassessed. Patient is alert, oriented x 3, equal unlabored respirations, skin warm/dry/pink. Repeat ECG done by technical data analyst Lashawn and showed to Dr. Linares. Patient denies pain at this time. 05:00 Reassessment: Patient appears in no apparent distress at this time. Patient and/or cc3 family updated on plan of care and expected duration. Pain level reassessed. Patient is alert, oriented x 3, equal unlabored respirations, skin warm/dry/pink. Dr. Linares discharged the patient home with prescription given. IV cannula removed and patient left ER vitally stable and ambulatory with her family. No valuables left in the patient's room. Patient denies pain at this time. Patient states feeling better. Patient states symptoms have improved. Vital Signs: 02/09 23:51 BP 137 / 95; Pulse 104; Resp 18; Temp 97.7; Pulse Ox 100% on R/A; Weight 69.85 kg; mg2 Height 4 ft. 9 in. (144.78 cm); Pain 10/10; 02/10 00:45 BP 136 / 55; Pulse 81; Resp 17 S; Pulse Ox 100% on R/A; Pain 0/10; cc3 01:30 BP 123 / 58; Pulse 71; Resp 16 S; Pulse Ox 100% on R/A; Pain 0/10; cc3 02:20 BP 120 / 55; Pulse 60; Resp 16 S; Pulse Ox 100% on R/A; Pain 0/10; cc3 03:13 BP 135 / 71; Pulse 63; Resp 17 S; Pulse Ox 100% on R/A; Pain 0/10; cc3 04:30 BP 123 / 56; Pulse 62; Resp 18 S; Pulse Ox 100% on R/A; Pain 0/10; cc3 05:00 BP 150 / 61; Pulse 57; Resp 17 S; Pulse Ox 100% on R/A; Pain 0/10; cc3 02/09 23:51 Body Mass Index 33.32 (69.85 kg, 144.78 cm) mg2 ED Course: 02/09 23:38 Patient arrived in ED. es 23:38 Walter Escobar MD is Private Physician. es 23:51 Triage completed. mg2 23:53 Arm band placed on. mg2 23:57 Joellen Méndez is Primary Nurse. cc3 23:57 Patient has correct armband on for positive identification. Placed in gown. Bed in low cc3 position. Call light in reach. Side rails up X 1. escalator installer on. Pulse ox on. NIBP on. 02/10 00:03 Cory Linares MD is Attending Physician. tw4 00:47 Inserted saline lock: 20 gauge in right antecubital area, using aseptic technique. cm6 04:47 Walter Escobar MD is Referral Physician. tw4 05:00 No provider procedures requiring assistance completed. IV discontinued, intact, cc3 bleeding controlled, No redness/swelling at site. Pressure dressing applied. Administered Medications: 01:35 Drug: NS 0.9% 500 ml Route: IV; Rate: bolus; Site: right antecubital; cc3 02:15 Follow up: Response: No adverse reaction; IV Status: Completed infusion; IV Intake: cc3 500ml Intake: 02:15 IV: 500ml; Total: 500ml. cc3 Outcome: 04:48 Discharge ordered by . tw4 05:00 Discharged to home ambulatory, with family. cc3 05:00 Condition: stable 05:00 Discharge instructions given to patient, family, Instructed on discharge instructions, follow up and referral plans. medication usage, Demonstrated understanding of instructions, follow-up care, medications, Prescriptions given X 1. 05:09 Patient left the ED. cc3 Signatures: Rosita Bhakta Cory Linares MD MD tw4 Osito Guadalupe, AILYN RN [facility] [place] Joellen Méndez cc3 Lashawn Smith cm6 Corrections: (The following items were deleted from the chart) 02/09 23:51 23:49 Presenting complaint: Significant other states: my mother has epigastric pain and mg2 nausea since tonight. denies vomiting, BP at home 194/104 mmHg. mg2 02/10 05:30 05:00 BP 150 / 61; Pulse 57bpm; Resp 17bpm; Spontaneous; Pulse Ox 100% RA; cc3 cc3 05:31 03:13 BP 135 / 71; Pulse 63bpm; Resp 17bpm; Spontaneous; Pulse Ox 100% RA; cc3 cc3 05:31 00:45 BP 136 / 55; Pulse 81bpm; Resp 17bpm; Spontaneous; Pulse Ox 100% RA; cc3 cc3 05:31 01:30 BP 123 / 58; Pulse 71bpm; Resp 16bpm; Spontaneous; Pulse Ox 100% RA; cc3 cc3 05:31 02:20 BP 120 / 55; Pulse 60bpm; Resp 16bpm; Spontaneous; Pulse Ox 100% RA; cc3 cc3
--- NOTE | 2019-02-10 04:50 | EDPHYS ---
Physician Documentation [facility] Name: Radha Laguna Age: 83 yrs Sex: Female : 1935 Arrival Date: 02/09/2019 Time: 23:38 Bed 20 Private MD: Walter Escobar ED Physician Cory Linares HPI: 02/10 04:43 This 83 yrs old Female presents to ER via Wheelchair with complaints of High tw4 Blood Pressure, Nausea. 04:43 The patient has elevated blood pressure and discovered this at home. Onset: The tw4 symptoms/episode began/occurred today. Modifying factors: The symptoms are aggravated by The symptoms are alleviated by. Severity of symptoms: At its worst the blood pressure was moderate, in the emergency department the blood pressure is. The patient has not experienced similar symptoms in the past. 04:48 Associated signs and symptoms: Pertinent positives: nausea. pt states that her BP had a tw4 reading of 200 systolic. Pt states she took a sublingual nitro. denies CP. Historical: - Allergies: 02/09 23:53 does not like morphine; mg2 - Home Meds: 23:53 amlodipine 10 mg tab 1 tab once daily [Active]; mg2 23:57 Januvia 100 mg Oral tab 1 tab once daily [Active]; lovastatin 20 mg Oral tab 1 tab once cc3 daily [Active]; Lyrica Oral 50 mg 2 times per day [Active]; [place] 5-325 mg Oral tab 1 tab as needed for Pain [Active]; telmisartan-hydrochlorothiazid 80-12.5 mg Oral tab 1 tab once daily [Active]; - PMHx: 23:53 Diabetes - NIDDM; Hypertension; mg2 - PSHx: 23:53 Hysterectomy; Cholecystectomy; Appendectomy; mg2 - Immunization history:: Flu vaccine is up to date. - Social history:: Smoking status: Patient/guardian denies using tobacco, Patient/guardian denies using alcohol, street drugs, IV drugs. - Ebola Screening: : No symptoms or risks identified at this time. ROS: 02/10 04:43 Constitutional: Negative for fever, chills, and weight loss, Eyes: Negative for injury, tw4 pain, redness, and discharge, Cardiovascular: Negative for chest pain, palpitations, and edema, Respiratory: Negative for shortness of breath, cough, wheezing, and pleuritic chest pain. Back: Negative for injury and pain, MS/Extremity: Negative for injury and deformity, Skin: Negative for injury, rash, and discoloration. Abdomen/GI: Positive for nausea, Negative for abdominal pain, nausea and vomiting, vomiting, diarrhea, constipation, abdominal cramps. Exam: 04:43 Constitutional: This is a well developed, well nourished patient who is awake, alert, tw4 and in no acute distress. Head/Face: Normocephalic, atraumatic. Chest/axilla: Normal chest wall appearance and motion. Nontender with no deformity. No lesions are appreciated. Cardiovascular: Regular rate and rhythm with a normal S1 and S2. No gallops, murmurs, or rubs. Normal PMI, no JVD. No pulse deficits. Respiratory: Lungs have equal breath sounds bilaterally, clear to auscultation and percussion. No rales, rhonchi or wheezes noted. No increased work of breathing, no retractions or nasal flaring. Back: No spinal tenderness. No costovertebral tenderness. Full range of motion. Skin: Warm, dry with normal turgor. Normal color with no rashes, no lesions, and no evidence of cellulitis. MS/ Extremity: Pulses equal, no cyanosis. Neurovascular intact. Full, normal range of motion. Vital Signs: 02/09 23:51 BP 137 / 95; Pulse 104; Resp 18; Temp 97.7; Pulse Ox 100% on R/A; Weight 69.85 kg; mg2 Height 4 ft. 9 in. (144.78 cm); Pain 10/10; 02/10 00:45 BP 136 / 55; Pulse 81; Resp 17 S; Pulse Ox 100% on R/A; Pain 0/10; cc3 01:30 BP 123 / 58; Pulse 71; Resp 16 S; Pulse Ox 100% on R/A; Pain 0/10; cc3 02:20 BP 120 / 55; Pulse 60; Resp 16 S; Pulse Ox 100% on R/A; Pain 0/10; cc3 03:13 BP 135 / 71; Pulse 63; Resp 17 S; Pulse Ox 100% on R/A; Pain 0/10; cc3 04:30 BP 123 / 56; Pulse 62; Resp 18 S; Pulse Ox 100% on R/A; Pain 0/10; cc3 05:00 BP 150 / 61; Pulse 57; Resp 17 S; Pulse Ox 100% on R/A; Pain 0/10; cc3 02/09 23:51 Body Mass Index 33.32 (69.85 kg, 144.78 cm) mg2 MDM: 00:03 Patient medically screened. tw4 04:43 Differential diagnosis: hypertensive crisis, Malignant HTN. Data reviewed: vital signs, tw4 nurses notes. Data interpreted: Pulse oximetry: Interpretation: normal. Test interpretation: by ED physician or midlevel provider: ECG, plain radiologic studies. Counseling: I had a detailed discussion with the patient and/or guardian regarding: the historical points, exam findings, and any diagnostic results supporting the discharge/admit diagnosis. Medication response: Zofran relieved the patient's nausea. Response to treatment: and as a result, I will discharge patient. Special discussion: I discussed with the patient/guardian in detail that at this point there is no indication for admission to the hospital. It is understood, however, that if the symptoms persist or worsen the patient needs to return immediately for re-evaluation. 02/10 00:18 Order name: Basic Metabolic Panel; Complete Time: 04:02/10 04:01 Interpretation: Normal except: GLUC 136; GFR 44. 02/10 00:18 Order name: CBC with Diff; Complete Time: 04:01 02/10 04:02 Interpretation: Within normal limits. 02/10 00:18 Order name: Creatinine for Radiology; Complete Time: 04:02/10 00:18 Order name: Hepatic Function; Complete Time: 04:02/10 00:18 Order name: Lipase; Complete Time: 04:02/10 00:18 Order name: Troponin (emerg Dept Use Only); Complete Time: 04:01 02/10 04:02 Interpretation: Within normal limits: TROPED 0.02. 02/10 00:18 Order name: IV Saline Lock; Complete Time: 01:05 02/10 00:18 Order name: Labs collected and sent; Complete Time: 01:05 02/10 00:19 Order name: EKG; Complete Time: 00:24 tw4 EC:50 Rate is 57 beats/min. Rhythm is regular. QRS [place] is Normal. IN interval is normal. QRS tw4 interval is normal. QT interval is normal. No Q waves. T waves are Inverted in lead III. No ST changes noted. Clinical impression: Sinus bradycardia. Interpreted by me. Reviewed by me. Administered Medications: 01:35 Drug: NS 0.9% 500 ml Route: IV; Rate: bolus; Site: right antecubital; cc3 02:15 Follow up: Response: No adverse reaction; IV Status: Completed infusion; IV Intake: cc3 500ml Disposition: 02/10/19 04:48 Discharged to Home. Impression: Hypertension, Nausea. - Condition is Stable. - Discharge Instructions: Hypertension, Nausea, Adult. - Prescriptions for Zofran 4 mg Oral Tablet - take 1 tablet by ORAL route every 12 hours As needed; 6 tablet. - Medication Reconciliation Form, Thank You Letter, Antibiotic Education, Prescription Opioid Use form. - Follow up: Walter Escobar MD; When: Upon discharge from the Emergency Department; Reason: If symptoms return, Recheck today's complaints, Continuance of care. - Problem is new. - Symptoms have improved. Signatures: Dispatcher [employer] EDMS Cory Linares MD MD tw4 Osito Guadalupe RN RN mg2 Joellen Méndez cc3 Corrections: (The following items were deleted from the chart) 04:50 04:43 Associated signs and symptoms: The patient has no apparent associated signs or tw4 symptoms, tw4 05:09 04:48 02/10/2019 04:48 Discharged to Home. Impression: Hypertension; Nausea. Condition cc3 is Stable. Forms are Medication Reconciliation Form, Thank You Letter, Antibiotic Education, Prescription Opioid Use. Follow up: Walter Escobar; When: Upon discharge from the Emergency Department; Reason: If symptoms return, Recheck today's complaints, Continuance of care. Problem is new. Symptoms have improved. tw4
[2019-02-10 06:28] VITALS: TEMP 97.7; O2SAT 100
[2019-02-10 06:33] VITALS: BP 135/71
--- NOTE | 2019-02-10 15:40 | EKG ---
Test Date: 2019-02-10 Test Time: 04:12:38 Inside Sales Advertising Executive: KEERTHI MEASUREMENT RESULTS: Intervals: Rate: 57 TN: 180 QRSD: 70 QT: 412 QTc: 401 [place]: P: 69 TN: 180 QRS: -3 T: 26 INTERPRETIVE STATEMENTS: Sinus bradycardia Cannot rule out Inferior infarct, age undetermined Abnormal ECG Compared to ECG 02/10/2019 00:41:32 No significant changes Electronically Signed On 02-10-19 15:40:10 CDT by Lon Cole
--- NOTE | 2019-02-10 15:43 | EKG ---
Test Date: 2019-02-10 Test Time: 00:41:32 Service Sprinkler Helper: JEFF MEASUREMENT RESULTS: Intervals: Rate: 120 NV: QRSD: 90 QT: 282 QTc: 398 [place]: P: 33 NV: QRS: 2 T: 49 INTERPRETIVE STATEMENTS: Atrial fibrillation with rapid ventricular response Cannot rule out Inferior infarct, age undetermined Abnormal ECG Compared to ECG 03/27/2018 18:46:36 Myocardial infarct finding now present Sinus rhythm no longer present Electronically Signed On 02-10-19 15:42:22 CDT by Lon Cole
== END 2019-02-10 05:09 | disposition home or self-care (01) ==
LOC: ER 23:35
DX: I10 Essential (primary) hypertension (principal); E11.9 Type 2 diabetes mellitus without complications; Z88.5 Allergy status to narcotic agent
CPT/HCPCS: 36415; 80048; 80076; 83690; 84484; 85025; 93005; 96360; 99284

== ENCOUNTER 2019-12-09 16:38 | Emergency (ER) | payer OTHER ==
--- OUTSIDE RECORDS SUMMARY | 2019-12-09 16:41 | XMS REPORT | Continuity of Care Document ---
:1935 Author Organization [facility] t Address [address] [place] [address] Dr. Menchaca [address] [place] [id number] Care Team Providers Name Role Phone Unavailable Unavailable Unavailable Problems This patient has no known problems. Allergies, Adverse Reactions, Alerts This patient has no known allergies or adverse reactions. Medications This patient has no known medications. Procedures This patient has no known procedures. Results This patient has no known results.
[2019-12-09 17:27] LABS: Urine Blood 1+ (NEG); Urine Glucose NEGATIVE (NEG); Urine Protein NEGATIVE (NEG); Urine Specific Gravity 1.015 (1.005-1.030)
[2019-12-09] MEDS ORDERED: FENTANYL CITR 100 MCG/2 ML ONE (19:58)
[2019-12-09] MEDS ORDERED: ONDANSETRON 4 MG/2 ML VIAL ONE (19:59)
[2019-12-09] MEDS ORDERED: NA CHLORIDE 0.9% 1,000 ML ONE (19:59)
[2019-12-09 20:04] LABS: Absolute Lymphocytes (CBC) 1.6 K/uL (0.7-4.9); Basophils % 0.6 % (0-1.3); Hematocrit 39.4 % (36.0-45.0); MPV 7.5 fL (7.6-11.3); RBC Red Blood Cell Count 4.33 M/uL (3.86-4.86)
[2019-12-09 20:23] LABS: Albumin 4.1 g/dL (3.4-5.0); Bilirubin Direct 0.2 mg/dL (0-0.2); Bilirubin Total 0.6 mg/dL (0.2-1.0); Potassium 4.3 mmol/L (3.5-5.1); Protein, Total 8.3 g/dL (6.4-8.2)
--- NOTE | 2019-12-09 20:56 | RAD REPORT ---
EXAM DESCRIPTION: CT - Abdomen Pelvis W Contrast - 12/09/2019 8:38 pm CLINICAL HISTORY: Abdominal pain COMPARISON: 2018 TECHNIQUE: Computed axial tomography of the abdomen pelvis was obtained. 100 cc Isovue-300 was admin istered intravenously. Oral contrast was not requested which limits evaluation of bowel. All CT scans are performed using dose optimization technique as appropriate and may include automated exposure control or mA/KV adjustment according to patient size. FINDINGS: Cholecystectomy The liver, spleen, pancreas, left adrenal adrenal and kidneys appear unremarkable. 26 millimeter right adrenal myelolipoma unchanged Diverticulosis without diverticulitis. Spondylosis involves lumbar spine resulting in spinal stenosis IMPRESSION: No acute abnormality is displayed.
--- NOTE | 2019-12-09 21:15 | EDPHYS ---
Physician Documentation [facility] Name: Radha Laguna Age: 84 yrs Sex: Female : 1935 Arrival Date: 12/09/2019 Time: 16:43 Bed 15 Private MD: ED Physician Douglas Gates HPI: 12/08 19:30 This 84 yrs old Female presents to ER via Ambulatory with complaints of pm1 Abdominal Swelling, Pelvic Pain. 19:30 The patient presents with abdominal pain suprapubic area. Onset: The symptoms/episode pm1 began/occurred 3 day(s) ago. The symptoms do not radiate. Associated signs and symptoms: Pertinent positives: dysuria, Pertinent negatives: nausea, vomiting, and diarrhea, chest pain, fever, shortness of breath. The symptoms are described as crampy. Modifying factors: The symptoms are alleviated by nothing, the symptoms are aggravated by urination. Severity of pain: in the emergency department the pain is actually worse. The patient has experienced similar episodes in the past, history of multiple urinary tract infections. The patient has been recently seen by a physician: the patient's primary care provider, Dr. Escobar for the same complaint about 2-3 weeks ago. Was prescribed bactrim DS BID for 1 week and then taking 1 tab once daily since then. Historical: - Allergies: 16:57 does not like morphine; ll1 16:57 Morphine; ll1 - PMHx: 16:57 Diabetes - NIDDM; Hypertension; ll1 - PSHx: 16:57 Hysterectomy; Cholecystectomy; Appendectomy; ll1 - Immunization history:: Flu vaccine is up to date. - Social history:: Smoking status: Patient denies any tobacco usage or history of. Patient/guardian denies using alcohol, street drugs, tobacco products. ROS: 19:30 Constitutional: Negative for fever, chills, and weight loss, Eyes: Negative for injury, pm1 pain, redness, and discharge, ENT: Negative for injury, pain, and discharge, Neck: Negative for injury, pain, and swelling, Cardiovascular: Negative for chest pain, palpitations, and edema, Respiratory: Negative for shortness of breath, cough, wheezing, and pleuritic chest pain. 19:30 Back: Negative for injury and pain. 19:30 MS/Extremity: Negative for injury and deformity, Skin: Negative for injury, rash, and discoloration, Neuro: Negative for headache, weakness, numbness, tingling, and seizure. 19:30 Abdomen/GI: Positive for abdominal pain, of the suprapubic area, Negative for nausea, vomiting, and diarrhea. 19:30 : Positive for burning with urination. Exam: 19:30 Constitutional: This is a well developed, well nourished patient who is awake, alert, pm1 and in no acute distress. Head/Face: Normocephalic, atraumatic. Neck: Trachea midline, no thyromegaly or masses palpated, and no cervical lymphadenopathy. Supple, full range of motion without nuchal rigidity, or vertebral point tenderness. No Meningismus. Chest/axilla: Normal chest wall appearance and motion. Nontender with no deformity. No lesions are appreciated. Cardiovascular: Regular rate and rhythm with a normal S1 and S2. No gallops, murmurs, or rubs. Normal PMI, no JVD. No pulse deficits. Respiratory: Lungs have equal breath sounds bilaterally, clear to auscultation and percussion. No rales, rhonchi or wheezes noted. No increased work of breathing, no retractions or nasal flaring. 19:30 Back: No spinal tenderness. No costovertebral tenderness. Full range of motion. Skin: Warm, dry with normal turgor. Normal color with no rashes, no lesions, and no evidence of cellulitis. MS/ Extremity: Pulses equal, no cyanosis. Neurovascular intact. Full, normal range of motion. 19:30 Abdomen/GI: Inspection: abdomen appears normal, Bowel sounds: normal, Palpation: abdomen is soft and non-tender, in all quadrants, mass, is not appreciated, rebound tenderness, is not appreciated. 19:30 Neuro: Exam negative for acute changes, Orientation: is normal, Mentation: is normal, Motor: is normal, moves all fours. Vital Signs: 16:57 BP 182 / 77; Pulse 75; Resp 18; Temp 97.4; Pulse Ox 100% ; Pain 10/10; ll1 19:32 BP 187 / 74 LA Supine (auto/reg); Pulse 69; Resp 18 S; Temp 98(O); Pulse Ox 100% on jp3 R/A; Pain 10/10; MDM: 19:24 Patient medically screened. pm1 21:13 Data reviewed: vital signs. Data interpreted: Pulse oximetry: on room air is 100 %. pm1 Interpretation: normal. Counseling: I had a detailed discussion with the patient and/or guardian regarding: the historical points, exam findings, and any diagnostic results supporting the discharge/admit diagnosis, lab results, radiology results, the need for outpatient follow up, a family practitioner, to return to the emergency department if symptoms worsen or persist or if there are any questions or concerns that arise at home. 12/08 17:23 Order name: Urine Dipstick--Ancillary (enter results); Complete Time: 19:24 em1 12/08 19:28 Order name: Urine Microscopic Only; Complete Time: 23:18 pm1 12/08 19:30 Order name: Basic Metabolic Panel; Complete Time: 20:23 pm1 12/08 19:30 Order name: CBC with Diff; Complete Time: 20:23 pm1 12/08 19:30 Order name: Hepatic Function; Complete Time: 20:23 pm1 12/08 19:30 Order name: Lipase; Complete Time: 20:23 pm1 12/08 19:30 Order name: IV Saline Lock; Complete Time: 19:49 pm1 12/08 19:30 Order name: Labs collected and sent; Complete Time: 19:49 pm1 12/08 19:30 Order name: CT Abd/Pelvis - IV Contrast Only; Complete Time: 21:01 pm1 12/08 22:04 Order name: Urine Culture EDMS Administered Medications: 20:00 Drug: fentaNYL (PF) 25 mcg Route: IVP; Site: right antecubital; 22:01 Follow up: Response: No adverse reaction ll1 20:00 Drug: Zofran (Ondansetron) 4 mg Route: IVP; Site: right antecubital; 22:01 Follow up: Response: No adverse reaction ll1 20:18 Drug: NS 0.9% 500 ml Route: IV; Rate: bolus; Site: right antecubital; 22:02 Follow up: Response: No adverse reaction; IV Status: Completed infusion ll1 21:45 Drug: Rocephin 1 grams Route: IV; Rate: calculated rate; Site: right antecubital; [facility] 22:02 Follow up: Response: No adverse reaction; IV Status: Completed infusion 1 Disposition: 12/09 07:37 Co-signature as Attending Physician, Douglas Gates MD I agree with the assessment and robson plan of care. Disposition: 12/09/19 21:14 Discharged to Home. Impression: Urinary tract infection, site not specified. - Condition is Stable. - Discharge Instructions: Urinary Tract Infection, Adult. - Prescriptions for Keflex 500 mg Oral Capsule - take 1 capsule by ORAL route every 12 hours for 10 days; 20 capsule. - Medication Reconciliation Form, Thank You Letter, Antibiotic Education, Prescription Opioid Use form. - Follow up: Emergency Department; When: As needed; Reason: Worsening of condition. Follow up: Private Physician; When: 2 - 3 days; Reason: Recheck today's complaints, Continuance of care, Re-evaluation by your physician. - Problem is new. - Symptoms have improved. Signatures: Dispatcher [employer] Douglas Zimmer, Irvin Rubio MD, cha, COMMISSIONED DEFENCE FORCE OFFICER COMMISSIONED DEFENCE FORCE OFFICER pm1 Magali Cole RN RN Kodak Lynn RN RN ll1 Corrections: (The following items were deleted from the chart) 12/08 22:05 21:14 12/09/2019 21:14 Discharged to Home. Impression: Urinary tract infection, site ll1 not specified. Condition is Stable. Forms are Medication Reconciliation Form, Thank You Letter, Antibiotic Education, Prescription Opioid Use. Follow up: Emergency Department; When: As needed; Reason: Worsening of condition. Follow up: Private Physician; When: 2 - 3 days; Reason: Recheck today's complaints, Continuance of care, Re-evaluation by your physician. Problem is new. Symptoms have improved. pm1
--- NOTE | 2019-12-09 21:15 | ER ---
Nurse's Notes [facility] Name: Radha Laguna Age: 84 yrs Sex: Female : 1935 Arrival Date: 12/09/2019 Time: 16:43 Bed 15 Private MD: Diagnosis: Urinary tract infection, site not specified Presentation: 12/08 16:57 Chief complaint: Patient states: Generalized abdominal pain for 3 days, pain worse to ll1 lower mid abdomen. Slight nausea. No fever. Slight dysuria. Coronavirus screen: Proceed with normal triage. Patient denies a cough. Patient denies shortness of breath or difficulty breathing. Patient denies measured and/or subjective temperature greater than 100.4F prior to today's visit. Patient denies travel on a cruise ship or to a country the [facility] currently lists as an affected area. Patient denies contact with known and/or suspected case of COVID-19. Ebola Screen: Patient denies travel to an Ebola-affected area in the 21 days before illness onset. Initial Sepsis Screen: Does the patient meet any 2 criteria? No. Patient's initial sepsis screen is negative. Risk Assessment: Do you want to hurt yourself or someone else? Patient reports no desire to harm self or others. Onset of symptoms was December 07, 2019. 16:57 Method Of Arrival: Ambulatory ll1 16:57 Acuity: JULIET 3 ll1 22:05 Initial Sepsis Screen: Does the patient have a suspected source of infection? No. ll1 Patient's initial sepsis screen is negative. Historical: - Allergies: 16:57 does not like morphine; ll1 16:57 Morphine; ll1 - PMHx: 16:57 Diabetes - NIDDM; Hypertension; ll1 - PSHx: 16:57 Hysterectomy; Cholecystectomy; Appendectomy; ll1 - Immunization history:: Flu vaccine is up to date. - Social history:: Smoking status: Patient denies any tobacco usage or history of. Patient/guardian denies using alcohol, street drugs, tobacco products. Screenin:17 Abuse screen: Denies threats or abuse. Nutritional screening: No deficits noted. Tuberculosis screening: No symptoms or risk factors identified. Fall Risk None identified. Assessment: 20:05 General: Appears uncomfortable, Behavior is calm, cooperative, appropriate for age. Pain: Complains of pain in umbilical area, right lower quadrant and left lower quadrant. Neuro: Level of Consciousness is awake, alert, obeys commands, Oriented to person, place, time, situation. Cardiovascular: Heart tones S1 S2 present Capillary refill < 3 seconds Patient's skin is warm and dry. Respiratory: Airway is patent Respiratory effort is even, unlabored, Respiratory pattern is regular, symmetrical. GI: Bowel sounds present X 4 quads. Abdomen is tender to palpation in right lower quadrant and left lower quadrant Reports nausea, Patient currently denies vomiting. : Reports burning with urination, Denies vaginal bleeding. Derm: Skin is intact, is healthy with good turgor. 21:05 Reassessment: Patient and/or family updated on plan of care and expected duration. Pain ll1 level reassessed. Patient is alert, oriented x 3, equal unlabored respirations, skin warm/dry/pink. awaiting on lab results. Vital Signs: 16:57 BP 182 / 77; Pulse 75; Resp 18; Temp 97.4; Pulse Ox 100% ; Pain 10/10; ll1 19:32 BP 187 / 74 LA Supine (auto/reg); Pulse 69; Resp 18 S; Temp 98(O); Pulse Ox 100% on jp3 R/A; Pain 10/10; ED Course: 16:43 Patient arrived in ED. bp1 16:59 Triage completed. ll1 19:24 Irvin Marcial NP is PHCP. pm1 19:24 Neeraj Burger MD is Attending Physician. pm1 19:33 Magali Cole, RN is Primary Nurse. 19:33 Patient has correct armband on for positive identification. Bed in low position. Call jp3 light in reach. Side rails up X 1. Warm blanket given. Verbal reassurance given. Pulse ox on. NIBP on. 19:33 Patient maintains SpO2 saturation greater than 95% on room air. jp3 19:45 Inserted saline lock: 20 gauge in right antecubital area, using aseptic technique. ll1 20:40 CT Abd/Pelvis - IV Contrast Only In Process Unspecified. EDMS 21:16 Douglas Gates MD is Attending Physician. pm1 22:03 No provider procedures requiring assistance completed. ll1 22:04 IV discontinued, intact, bleeding controlled, No redness/swelling at site. Pressure ll1 dressing applied. 22:05 Patient notified of wait time. ll1 Administered Medications: 20:00 Drug: fentaNYL (PF) 25 mcg Route: IVP; Site: right antecubital; 22:01 Follow up: Response: No adverse reaction [facility] 20:00 Drug: Zofran (Ondansetron) 4 mg Route: IVP; Site: right antecubital; 22:01 Follow up: Response: No adverse reaction [facility] 20:18 Drug: NS 0.9% 500 ml Route: IV; Rate: bolus; Site: right antecubital; 22:02 Follow up: Response: No adverse reaction; IV Status: Completed infusion 1 21:45 Drug: Rocephin 1 grams Route: IV; Rate: calculated rate; Site: right antecubital; [facility] 22:02 Follow up: Response: No adverse reaction; IV Status: Completed infusion [facility] Outcome: 21:14 Discharge ordered by MD. pm1 22:03 Discharged to home ambulatory. 1 22:03 Condition: good 22:03 Discharge instructions given to patient, family, Instructed on discharge instructions, follow up and referral plans. medication usage, Demonstrated understanding of instructions, follow-up care, medications, Prescriptions given X 1. 22:05 Patient left the ED. 1 Signatures: Dispatcher [employer] EDMS Irvin Marcial NP COUPLES THERAPIST pm1 Raúl Boles jp3 Magali Cole RN RN ah Lewis, Lynsay, RN RN 1 Linn Childs
[2019-12-09] MEDS ORDERED: CEFTRIAXONE/SWI 1gm 1 GM/10 ML SYR ONE (21:57)
[2019-12-09 22:02] LABS: Urine Bacteria 20-50 /HPF (<20); Urine Culture Reflex Order REFLEXED; Urine RBC <5 /HPF (NONE SEEN)
[2019-12-09 22:19] VITALS: O2SAT 100
[2019-12-09 22:21] VITALS: BP 187/74; TEMP 98
== END 2019-12-09 22:05 | disposition home or self-care (01) ==
LOC: ER 16:38
DX: N39.0 Urinary tract infection, site not specified (principal); I10 Essential (primary) hypertension; E11.9 Type 2 diabetes mellitus without complications; Z88.5 Allergy status to narcotic agent
CPT/HCPCS: 96365; 96361; 87088; 85025; 87086; 80048; 36415; 80076; 87077; 87186; 83690; 74177; 96375; 99284; Q9967; J3010; J0696; J7030; J2405; 81003; 81015

== ENCOUNTER 2021-05-23 18:13 | Emergency (ER) | payer OTHER ==
--- OUTSIDE RECORDS SUMMARY | 2021-05-23 18:18 | XMS REPORT | Continuity of Care Document ---
:[address] [facility] t Address [address] [place] [address] [address]. [address]. [address] [place] [address] Care Team Providers Name Role Phone PRAVEEN, A Primary Care Physician Unavailable Eunice ROBERTSON, A Attending Clinician Unavailable Doyle DANIEL Attending Clinician Cherie DANIEL, S Attending Clinician Trudy DANIEL Attending Clinician TRUDY Attending Clinician Unavailable Doctor Unassigned, Name Attending Clinician Unavailable LASHON, A Attending Clinician Unavailable Murali_Barb Attending Clinician Unavailable Fercho SANTANA Attending Clinician Unavailable Trudy DANIEL Admitting Clinician TRUDY Admitting Clinician Unavailable Mitch Admitting Clinician Unavailable Payers Payer Name Policy Type Policy Number Effective Date Expiration Date Rocío rodrigues [facility]EEPTHI/[facility] DUAL [id number] 2021 COMP HMO D SNP 00:00:00 [facility] STAR PLUS [id number] 2016 00:00:00 [place]ID [place] [id number] 2020 00:00:00 [facility] - [id number] DUAL COMPLETE - DUAL ELIGIBLE - SNP (MEDICARE-MEDICAID REPLACEMENT HMO) Advance Directives Directive Decision Effective Termination Comments Source Date Date Healthcare Agents on N/A [facility] FileNameRelationPeoples Hospitalealthcare of [place] Agent Medical RelationshipCommunicationJose Branch [facility] Care [phone] (Mobile) Jazz [facility] [phone] (Mobile) Roman LagunaChildFir [facility] Care [phone] (Mobile) Ric Maradiagaconnarinder [facility] Care [phone] (Mobile) [email or web address] Condition Condition Condition Status Onset Resolution Last Treating Co mments Source Name Details Category Date Date Treatment Clinician Date Elevated Elevated Disease Active 2020-06 Unive rs troponin I troponin I 06-21 it y of level level 00:00: [address] Essential Essential Disease Active 2020-06 Uni vers hypertensi hypertensi 06-21 it y of on on 00:00: [address] Dyslipidem Dyslipidem Disease Active 2020-06 U nivers ia ia 06-21 ity of 00:00: [address] Abdominal Abdominal Disease Active 2020-06 Uni vers pain pain 06-20 ity of 00:00: [address] No known No known Disease Unive rs active active ity of problems problems [facility] Allergies, Adverse Reactions, Alerts Allergy Allergy Status Severity Reaction(s) Onset Inactive Treating Comm ents Source Name Type Date Date Clinician MORPHINE DRUG Active N/V 2020-06 Univers INGREDI 06-20 ity of 00:00: [address] Morphine Propensi Active Nausea 2020-06 Univer s ty to and/or 06-20 ity of adverse Vomiting 00:00: [place] reaction [address] [place] [address] s [place] NO KNOWN Drug Active Univers ALLERGIE Class ity of S [facility] Social History Social Habit Start Date Stop Date Quantity Comments Source Exposure to Not sure University of SARS-CoV-2 [place] [facility] (event) Branch History SDOH University o f Alcohol Std [place] [facility] Drinks Branch History SDOH University o f Alcohol Binge [place] [facility] al Branch History SDOH University o f Alcohol Comment [place] [facility] ical Branch Alcohol intake 2021-04-21 2021-04-21 Lifetime University of 00:00:00 00:00:00 non-drinker [place] [facility] (finding) Branch Tobacco use and 2020-01-23 2020-01-23 Never used Universit y of exposure 00:00:00 00:00:00 [place] [facility] History SDOH 2020-01-23 2020-01-23 1 University o f Alcohol Frequency 00:00:00 00:00:00 [facility] Sex Assigned At [birth year] Universit y of 00:00:00 00:00:00 [facility] Branch Smoking Status Start Date Stop Date Source Never smoker [facility] Branch Medications Ordered Filled Start Stop Current Ordering Indication Dosage Frequency Signature Comments Components Source Medication Medication Date Date Medication? Clinician (SIG) Name Name aspirin 81 2020-06 Yes [id number] 81mg Take 1 U nivers mg chewable 1-05 tablet by ity of tablet 00:00: mouth [place] 00 daily. Medical Branch clopidogreL 2020-06 Yes [id number] 75mg Take 1 Univers 75 mg 1-05 tablet by ity of tablet 00:00: mouth [place] 00 daily. Medical Branch aspirin 81 2020-06 Yes [id number] 81mg Take 1 U nivers mg chewable 1-05 tablet by ity of tablet 00:00: mouth [place] 00 daily. Medical Branch clopidogreL 2020-06 Yes [id number] 75mg Take 1 Univers 75 mg 1-05 tablet by ity of tablet 00:00: mouth [place] 00 daily. Medical Branch amLODIPine 2020-06 Yes 10mg Take 10 mg U nivers (NORVASC) 1-04 by mouth ity of 10 mg 13:30: daily. [place] tablet Medical Branch atorvastati 2020-06 Yes 20mg Take 20 mg Univers n (LIPITOR) 1-04 by mouth ity of 20 mg 13:30: at [place] tablet 01 bedtime. Medical Branch loratadine 2020-06 Yes 10mg Take 10 mg U nivers (CLARITIN) 1-04 by mouth ity o f 10 mg 13:30: daily. [place] tablet Medical Branch lipase/prot 2020-06 Yes Take by Un allie ease/amylas 1-04 mouth. ity of e (CREON 13:30: [place] ORAL) Medical Branch fluticasone 2020-06 Yes Use in Uni vers propionate 1-04 each ity of (FLONASE 13:30: nostril. [place] NASAL) Medical Branch ondansetron 2020-06 Yes 4mg Take 4 mg U nivers 4 mg tablet 1-04 by mouth ity of 13:30: every 8 (eight) Medical hours as Branch needed for Nausea and Vomiting (N/V). HYDROcodone 2020-06 Yes 1{tbl} Take 1 Un allie -acetaminop 1-04 tablet by ity of hen 5-325 13:30: mouth 2 [place] mg tablet 01 (two) Medical times Branch daily as needed for Pain (scale 4-6). SITagliptin 2020-06 Yes 100mg Take 100 U nivers 100 mg 1-04 mg by ity of tablet 13:30: mouth [place] 01 daily. Medical Branch amLODIPine 2020-06 Yes 10mg Take 10 mg U nivers (NORVASC) 1-04 by mouth ity of 10 mg 13:30: daily. [place] tablet Medical Branch atorvastati 2020-06 Yes 20mg Take 20 mg Univers n (LIPITOR) 1-04 by mouth ity of 20 mg 13:30: at [place] tablet bedtime. Medical Branch loratadine 2020-06 Yes 10mg Take 10 mg U nivers (CLARITIN) 1-04 by mouth ity o f 10 mg 13:30: daily. [place] tablet Medical Branch lipase/prot 2020-06 Yes Take by Un allie ease/amylas 1-04 mouth. ity of e (CREON 13:30: [place] ORAL) Medical Branch fluticasone 2020-06 Yes Use in Uni vers propionate 1-04 each ity of (FLONASE 13:30: nostril. [place] NASAL) Medical Branch ondansetron 2020-06 Yes 4mg Take 4 mg U nivers 4 mg tablet 1-04 by mouth ity of 13:30: every 8 [place] (eight) Medical hours as Branch needed for Nausea and Vomiting (N/V). HYDROcodone 2020-06 Yes 1{tbl} Take 1 Un allie -acetaminop 1-04 tablet by ity of hen 5-325 13:30: mouth 2 [place] mg tablet 01 (two) Medical times Branch daily as needed for Pain (scale 4-6). SITagliptin 2020-06 Yes 100mg Take 100 U nivers 100 mg 1-04 mg by ity of tablet 13:30: mouth [place] 01 daily. Medical Branch metFORMIN 2020-06- No 500mg Take 500 Un allie (GLUCOPHAGE -04 11-04 mg by ity of ) 500 mg 11:11: 00:00 mouth 2 [place] tablet 30 :00 (two) Medical times Branch daily with meals. hyoscyamine 2020-06- No .125mg Take 0.125 Univers (LEVSIN) -04 11-04 mg by ity of 0.125 mg 11:11: 00:00 mouth [place] tablet 30 :00 needed. Medical Branch acetaminoph 2020-06- No 1{tbl} Take 1 Tab Univers en-codeine - 11-04 by mouth ity of (TYLENOL 11:11: 00:00 [place]. [place] #3[place] 300-30 30 :00 Medical mg tablet Branch telmisartan 2020-06- No 1{tbl} Take 1 Tab Univers -hydrochlor - 11-04 by mouth ity of othiazide 11:11: 00:00 daily. [place] (MICARDIS 30 :00 Medical HCT) Branch 80-12.5 mg per tablet alum-mag 2020-06 Yes 30mL 30 mL, Univers hydroxide-s 1-04 Oral, ity of imeth 00:23: Q4HPRN, [place] (MAALOX 33 Starting Medical PLUS / on Wed Branch MAG-AL 04/22/21 at PLUS) 1923, 200-200-20 Until mg/5 mL Discontinu suspension ed, 30 mL Routine, Indigestio n, Heartburn, Gas carvediloL 2020-06 Yes [id number] 3.125mg Take 1 Univers 3.125 mg 1-04 tablet by ity of tablet 00:00: mouth 2 [place] (two) Medical times Branch daily with meals. nitroglycer 2020-[id number] 1 Univers in 0.4 mg 1-04 tablet ity of sublingual 00:00: under the [place] tablet 00 tongue Medical every 5 Branch (five) minutes as needed for Chest pain. carvediloL 2020-06 Yes [id number] 3.125mg Take 1 Univers 3.125 mg 1-04 tablet by ity of tablet 00:00: mouth 2 [place] (two) Medical times Branch daily with meals. nitroglycer 2020-[id number] 1 Univers in 0.4 mg 1-04 tablet ity of sublingual 00:00: under the [place] tablet 00 tongue Medical every 5 Branch (five) minutes as needed for Chest pain. lipase-prot 2020-06 Yes 2{capsu 2 capsule, Univers ease-amylas 03 le} Oral, TID ity of e (CREON) 16:00: MEALS, [place] 12,000-38,0 00 First dose Me dical 00 -60,000 on Tue Branch unit 04/22/21 at capsule 2 1100, capsule Until Discontinu ed famotidine 2020-06 Yes 20mg 20 mg, Unive rs (PEPCID AC) 06-22 Oral, ity of tablet 20 14:00: DAILY, [place] mg 00 First dose Medical (after Branch last modificati on) on Tue04/22/21 at 0900, Until Discontinu ed, Routine sulfur 2020-06 [id number] 5mL 5 mL, Unive rs hexafluorid 06-21 Intravenou i ty of e microsphr 21:00: 21:00 s, ONCE, 1 [place] (LUMASON) 00 :00 dose, On Medica l injection 5 Tue Branch mL 04/21/21 at 1600, Routine
clergy member approving Restricted medication : ELSI MEANS amLODIPine 2020-06 Yes 10mg 10 mg, Unive rs (NORVASC) 06-21 Oral, ity of tablet 10 14:00: DAILY, [place] mg 00 First dose Medical on Tue Branch 04/21/21 at 0900, Until Discontinu ed, Routine SITagliptin 2020-06 Yes 100mg 100 mg, Un allie (JANUVIA) 06-21 Oral, ity of tablet 100 14:00: DAILY, [place] mg 00 First dose Medical on Tue Branch 04/21/21 at 0900, Until Discontinu ed, Routine fluticasone 2020-06 Yes 1{spray 1 [place], Univers propionate 06-21 } Nasal, ity of 50 14:00: DAILY, [place] mcg/actuati 00 First dose Me dical on nasal on Tue Branch spray 1 04/21/21 at [place] 0900, Until Discontinu ed clopidogreL 2020-06 Yes 75mg 75 mg, [facility] ers (PLAVIX) 06-21 Oral, ity of tablet 75 14:00: DAILY, [place] mg 00 First dose Medical on [facility] 04/21/21 at 0900, Until Discontinu ed, Routine aspirin 2020-06 Yes 81mg 81 mg, Univers chewable 06-21 Oral, ity of tablet 81 14:00: DAILY, [place] mg 00 First dose Medical on [facility] 04/21/21 at 0900, Until Discontinu ed, Routine famotidine 2020-06- No 40mg 40 mg, [facility] ers (PEPCID AC) 06-21 Oral, ity of tablet 40 14:00: 16:01 DAILY, [place] mg 00 :42 First dose Medical on [facility] 04/21/21 at 0900, Until Discontinu ed, Routine Sliding 2020-06 Yes Subcutaneo [facility] ers Scale 1-02 us, TID ity of Insulin - 13:00: MEALS+HS, [place] as Lispro 00 First dose Medical (HumaLOG) + on [facility] Fsbg 04/21/21 at Testing 0800, Until Discontinu ed, Routine HYDROcodone 2020-06 Yes 1{tbl} 1 tablet, Univers -acetaminop 06-21 Oral, ity of hen (NORCO) 06:21: Q6HPRN, [place] as 10-325 mg 01 Starting Medica l tablet 1 on [facility] tablet 04/21/21 at 0121, Until Discontinu ed, Routine, Pain (scale 7-10) HYDROcodone 2020-06 Yes 1{tbl} 1 tablet, Univers -acetaminop 06-21 Oral, ity of hen (NORCO 06:20: Q6HPRN, [place] 5) 5-325 mg 49 Starting Medi atul tablet 1 on [facility] tablet 04/21/21 at 0120, Until Discontinu ed, Routine, Pain (scale 4-6) atorvastati 2020-06 Yes 40mg 40 mg, [facility] ers n (LIPITOR) 06-21 Oral, QHS, it y of tablet 40 06:00: First dose [place] mg 00 on [facility] 04/21/21 at Branch 0100, Until Discontinu ed, Routine carvediloL 2020-06 Yes 3.125mg 3.125 mg, Univers (COREG) 06-21 Oral, BID ity of tablet 06:00: MEALS, [place] 3.125 mg 00 First dose Medic al on Tue04/21/21 at 0100, Until Discontinu ed, Routine
clergy member approving Restricted medication : JEANNINE YATES nitroglycer 2020-06 Yes .4mg 0.4 mg, Uni vers in 06-21 Sublingual ity of (NITROSTAT) 05:46: , Q5MIN [place] sublingual 19 PRN, Medical tablet 0.4 Starting Branc h mg on Tue04/21/21 at 0046, Until Discontinu ed, Routine, Chest pain ondansetron 2020-06 Yes 4mg 4 mg, Slow Univers (ZOFRAN 06-21 IV Push, ity of (PF)) 05:46: Q6HPRN, [place] injection 4 01 Starting Medi atul mg on Tue04/21/21 at 0046, Until Discontinu ed, Routine, Nausea and Vomiting (N/V) acetaminoph 2020-06 Yes 650mg 650 mg, Un allie en 06-21 Oral, ity of (TYLENOL) 05:45: Q6HPRN, [place] tablet 650 47 Starting Medic al mg on Tue04/21/21 at 0045, Until Discontinu ed, Routine, Pain (scale 1-3), Temp > 38.5 C heparin 2020-06- No 12U/kg/ 12 Univer s 25,000 06-21 11-04 h Units/kg/h ity of Units/250 04:24: 13:58 r ?70.3 kg [place] mL 13 :14 (8.436 Medical (Premixed mL/hr, Branch Bag) in rounded to 0.45 % NS 8.44 mL/hr), IV Infusion, TITRATE, Parameters in Admin. Instr., Starting on Tue04/20/21 at 2324
CA UTION - If LMWH given in ER, AVOID bolus and start next dose/drip 12 hrs after ER dosage.&nb sp; M ust program rate using programmab le infusion pump.&nbsp ; Yuly ck with the ordering provider first prior to any administra tion should the patient be on existing/a dditional anticoagul ant therapy.&n bsp; Range, Dosing and Testing&nb sp; - aPTT < 40: & nbsp;Bolus 3000 units, increase rate 100 units/hr.& nbsp;- aPTT 40-49:&nbs p; In crease rate 50 units/hr. - aPTT 50-70:&nbs p; NO CHANGE.&nb sp;- aPTT 71-85:&nbs p; De crease rate 50 units/hr.& nbsp;- aPTT 86-100:&nb sp; H old 30 minutes, decrease rate 100 units/hr.& nbsp;- aPTT 101-150:&n bsp; Hold 60 minutes, decrease rate 150 units/hr.& nbsp;- aPTT > 150: Hold 60 minutes, decrease rate 300 units/hr.& nbsp;&nbsp ;Check aPTT 6 hours after initiation , then Q6H after every change, aPTT Q12H once therapeuti c levels are reached.&n bsp; DO NOT ADJUST INITIAL BOLUS OR INITIAL INFUSION RATE.
HEPARIN 2020-06- No 4000U 4,000 Univers SODIUM 06-21 Units, IV ity of (PORCINE) 03:30: 03:30 Push, [place] 1,000 00 :00 ONCE, 1 Medical UNIT/ML dose, On Branch BOLUS ACS Mon ORDER SET 04/20/21 at 2230, Routine aspirin 2020-06- No 162mg 162 mg, Unive rs chewable 06-21 Oral, ity of tablet 162 03:30: 03:48 ONCE, 1 [place] mg 00 :00 dose, On Medical Mon Branch 04/20/21 at 2230, LEANNE iopamidol 2020-06- No [id number] 120mL 120 mL, Univers (ISOVUE 06-21 Intravenou ity o f 370-500 mL) 01:15: 01:15 s, ONCE, 1 [place] injection 00 :00 dose, On Medica l 120 mL Mon Branch 04/20/21 at 2015, Routine Nitrofurant Yes [id number] 100mg Take 1 Univers oin&Nit. 4-29 capsule by ity o f Macrocryst 00:00: mouth 2 [place] 100 mg 00 (two) Medical capsule times Branch daily with meals. Nitrofurant 0 2020- No [id number] 100mg Take 1 Univers oin&Nit. 4-29 11-04 capsule by ity of Macrocryst 00:00: 00:00 mouth 2 [place] 100 mg 00 :00 (two) Medical capsule times Branch daily with meals. metFORMIN 2019-0 Yes 500mg Take 500 Uni vers (GLUCOPHAGE 8-05 mg by ity of ) 500 mg 11:13: mouth 2 [place] tablet 05 (two) Medical times Branch daily with meals. amLODIPine 2019-0 Yes 10mg Take 10 mg U nivers (NORVASC) 8-05 by mouth ity of 10 mg 11:13: daily. [place] tablet 05 Medical Branch hyoscyamine 2019- Yes .125mg Take 0.125 Univers (LEVSIN) 8-05 mg by ity of 0.125 mg 11:13: mouth as [place] tablet 05 needed. Medical Branch atorvastati Yes 20mg Take 20 mg Univers n (LIPITOR) 8-05 by mouth ity of 20 mg 11:13: at [place] tablet 05 bedtime. Medical Branch telmisartan 2019-0 Yes 1{tbl} Take 1 Tab Univers -hydrochlor 8-05 by mouth ity of othiazide 11:13: daily. [place] (MICARDIS 05 Medical HCT) Branch 80-12.5 mg per tablet loratadine 2019-0 Yes 10mg Take 10 mg U nivers (CLARITIN) 8-05 by mouth ity o f 10 mg 11:13: daily. [place] tablet 05 Medical Branch lipase/prot 2019-0 Yes Take by Un allie ease/amylas 8-05 mouth. ity of e (CREON 11:13: [place] ORAL) 05 Medical Branch fluticasone 2019-0 Yes Use in Uni vers propionate 8-05 each ity of (FLONASE 11:13: nostril. [place] NASAL) 05 Medical Branch phenazopyri 2017-0 Yes 200mg Take 1 Uni vers dine 200 mg 8-17 tablet by ity of tablet 00:00: mouth 3 [place] 00 (three) Medical times Branch daily. phenazopyri 2017- No 200mg Take 1 Un allie dine 200 mg 804-23 tablet by it y of tablet 00:00: 00:00 mouth 3 [place] 00 :00 (three) Medical times Branch daily. acetaminoph Yes 1{tbl} Take 1 Tab Univers en-codeine 3-08 by mouth ity o f (TYLENOL 15:44: as needed. [place] #3) 300-30 32 Medical mg tablet Branch famotidine Yes 40mg Take 1 Tab U nivers (PEPCID) 40 3-08 by mouth ity of mg tablet 00:00: daily. [place] [facility] famotidine Yes 40mg Take 1 Tab U nivers (PEPCID) 40 3-08 by mouth ity of mg tablet 00:00: daily. [address] famotidine Yes 40mg Take 1 Tab U nivers (PEPCID) 40 3-08 by mouth ity of mg tablet 00:00: daily. [address] Immunizations Ordered Filled Immunization Date Status Comments [facility] e Immunization Name Name Influenza High Dose 2020-03-22 Completed Unive rsity of 00:00:00 [facility] Influenza High Dose 2020-03-22 Completed Unive rsity of 00:00:00 [facility] Influenza Virus 2019-04-18 Completed Universit y of Vaccine Recomb Quad 00:00:00 [facility] IM, Preserv and ABX Branc h Free 18-64 YRS Influenza Virus 2019-04-18 Completed Universit y of Vaccine Recomb Quad 00:00:00 [facility] IM, Preserv and ABX Branc h Free 18-64 YRS Pneumococcal 13 2012-06-20 Completed Universit y of Conjugate, PCV13 00:00:00 [facility] dical (Prevnar 13) Branch Pneumococcal 13 2012-06-20 Completed Universit y of Conjugate, PCV13 00:00:00 [facility] dical (Prevnar 13) Branch Vital Signs Vital Name Observation Time Observation Value Comments Source Systolic blood 2021-04-23 16:00:00 135 mm[Hg] Univer sity of pressure [facility] Diastolic blood 2021-04-23 16:00:00 54 mm[Hg] Unive rsity of pressure [facility] Body temperature 2021-04-23 16:00:00 36.83 [facility] Respiratory rate 2021-04-23 16:00:00 16 /min [facility] Heart rate 2021-04-23 09:00:00 53 /min [facility] Oxygen saturation in 2021-04-23 09:00:00 97 /min [facility] Arterial blood by [facility] [place] [place] Pulse oximetry Branch Body weight 2021-04-22 10:00:00 67.994 kg [facility] BMI 2021-04-22 10:00:00 31.33 kg/m2 [facility] Body height 2021-04-21 04:40:00 147.3 cm [facility] Procedures Procedure Date / Time Performing Clinician Source Performed POCT GLUCOSE (AUTOMATED) 2021-04-23 14:39:00 [facility] ([facility]OMATED) 2021-04-23 12:42:00 [facility] TROPONIN I 2021-04-23 09:39:00 Moo Roth [place] [facility] BASIC METABOLIC PANEL 2021-04-23 09:39:00 Moo Roth [facility] (NA, K, CL, CO2, GLUCOSE, Medica l Branch BUN, CREATININE, CA) ACTIVATED PARTIAL 2021-04-23 09:39:00 Luis A Medina [facility] N-TERMINAL PRO-BNP 2021-04-23 09:39:00 Alfredo [facility] POCT GLUCOSE (AUTOMATED) 2021-04-23 02:20:00 [facility] PO[facility] GLUCOSE (AUTOMATED) 2021-04-22 20:46:00 [facility] ACTIVATED PARTIAL 2021-04-22 18:35:00 Moo Roth [facility] POCT GLUCOSE (AUTOMATED) 2021-04-22 16:19:00 Blair [facility] POCT GLUCOSE (AUTOMATED) 2021-04-22 12:29:00 Blair Crespo Un iversFormerly [facility] PHOSPHORUS 2021-04-22 10:29:00 Moo Roth [facility] MAGNESIUM 2021-04-22 10:29:00 Ira [facility] TROPONIN I 2021-04-22 10:29:00 Ira [facility] BASIC METABOLIC PANEL 2021-04-22 10:29:00 Moo Roth [facility] (NA, K, CL, CO2, GLUCOSE, Medica l Branch BUN, CREATININE, CA) CBC WITH DIFF 2021-04-22 10:29:00 Ira [facility] ACTIVATED PARTIAL 2021-04-22 10:29:00 Luis A Medina [facility] N-TERMINAL PRO-BNP 2021-04-22 10:29:00 Moo Roth [facility] POCT GLUCOSE (AUTOMATED) 2021-04-22 00:31:00 Blair [facility] TROPONIN I 2021-04-21 23:10:00 Jeannine Yates [facility] ACTIVATED PARTIAL 2021-04-21 23:10:00 Moo Roth [facility] POCT GLUCOSE (AUTOMATED) 2021-04-21 21:52:00 [facility] TRANSTHORACIC ECHO (TTE) 2021-04-21 17:14:00 Jeannine [facility] W/ CONTRAST Medical [facility] HB ECG ROUTINE & RHYTHM 2021-04-21 17:05:37 Alfredo Joy [facility] POCT GLUCOSE (AUTOMATED) 2021-04-21 16:46:00 Blair Crespo Un iversFormerly [facility] POCT GLUCOSE (AUTOMATED) 2021-04-21 13:06:00 [facility] TROPONIN I 2021-04-21 12:43:00 [place], [facility] BASIC METABOLIC PANEL 2021-04-21 12:43:00 Trudy [facility] (NA, K, CL, CO2, GLUCOSE, Medica l Branch BUN, CREATININE, CA) LIPID PANEL ([id number])(TOTAL 2021-04-21 12:43:00 [facility]LE[facility], Medical [place] TRIGLYCERIDES, HDL) ACTIVATED PARTIAL 2021-04-21 12:40:00 Blair Crespo [facility] CBC WITH DIFF 2021-04-21 09:59:00 Trudy [facility] TROPONIN I 2021-04-21 06:28:00 Trudy [facility] PROTHROMBIN TIME / INR 2021-04-21 03:47:00 [facility] 2021-04-21 03:47:00 Blair Crespo [facility] COVID-19 (ID NOW RAPID 2021-04-21 02:19:00 [facility] Branch LAB ONLY COVID 2021-04-21 02:19:00 Blair Crespo [facility] INTERPRETATION [facility] CT ABDOMEN PELVIS W 2021-04-21 01:31:04 Audie Kwon [facility] CONTRAST [facility] HB ECG ROUTINE & RHYTHM 2021-04-21 00:31:26 Audie Kwon [facility] STRIP [facility] LACTIC ACID WHOLE BLOOD 2021-04-21 00:28:00 Audie Kwon [facility] LIPASE 2021-04-21 00:27:00 Doyle Audie [facility] TROPONIN I 2021-04-21 00:27:00 Doyle Audie [facility] THYROID STIMULATING 2021-04-21 00:27:00 Trudy [facility] HORMONE [facility] COMP. METABOLIC PANEL 2021-04-21 00:27:00 Audie Kwon [facility] ([id number]) Medical Branch CBC WITH DIFF 2021-04-21 00:27:00 [place] [facility] GLYCOSYLATED HEMOGLOBIN 2021-04-21 00:27:00 Jeannine Yates [facility] (A1C) [facility] URINE CULTURE 2021-04-21 00:27:00 [facility] N-TERMINAL PRO-BNP 2021-04-21 00:27:00 [facility] 2021-04-21 00:26:00 Kwon [facility] CONSENT/REFUSAL FOR 2021-04-20 20:26:52 Doctor Unassigned, [facility] DIAGNOSIS AND TREATMENT [place] [facility] Encounters Start End Encounter Admission Attending Care Care Encounter Source Date/Time Date/Time Type Type Clinicians Facility Department ID 2021-06-18 2021-06-18 Outpatient R [facility] [id number] Univers 15:30:00 15:30:00 [id number] ity of [facility] 2021-06-18 2021-06-18 Outpatient R [facility] [id number] Univers 15:30:00 15:30:00 ity of [facility] 2021-04-24 2021-04-24 Transition DAIANA Dawson [id number] Univers 00:00:00 00:00:00 of Care Osito CEDENO [id number] ity of ERIBERTO [id number] [facility] [id number] [facility] 403 Branch 2021-04-20 2021-04-23 Hospital Audie Kwon [facility] [id number] Univers 15:48:00 13:29:00 Encounter Blair Crespo 350.1.13.1 0 ity of Jeannine Yates [id number] [facility] [id number] [facility] [address] 2021-04-20 2021-04-23 Inpatient X TRUDY DCNAIMA MARCI [id number] Univers 15:48:00 13:29:00 [facility] 2021-04-20 Orders Doctor TAYLOR [id number] Univers 00:00:00 00:00:00 Only Unassigned, NORAH 350.1.13.10 [facility] 4.2.7.2.686 Rickey as [id number] 2021-03-18 2021-03-18 Outpatient R GRAMM, [facility] [id number] -[id number] Univers 14:00:00 14:00:00 JOHNNA [id number] ity [facility] 2020-09-11 2020-09-11 Outpatient R [facility] [id number] -[id number] Univers 14:30:00 14:30:00 [id number] ity [facility] 2020-09-11 2020-09-11 Outpatient R [facility] [id number] Univers 14:30:00 14:30:00 ity [facility] 2020-09-10 2020-09-10 Outpatient R GRAMM, [facility] [id number] -[id number] Univers 09:00:00 09:00:00 JOHNNA [id number] ity [facility] 2020-09-10 2020-09-10 Outpatient R GRAMM, [facility] [id number] Univers 09:00:00 09:00:00 JOHNNA [facility] 2020-05-29 2020-05-29 Outpatient R GRAMM, [facility] [id number] Univers 14:30:00 14:30:00 JOHNNA [id number] [facility] 2020-05-29 2020-05-29 Outpatient R GRAMM, [facility] [id number] Univers 14:30:00 14:30:00 JOHNNA [facility] 2020-04-24 2020-04-24 Outpatient Daniel_T VFP VFP [id number] Village 05:20:00 05:20:00 Family Practic e 2020-02-27 2020-02-27 Outpatient R GRAMM, [facility] [id number] Univers 14:30:00 14:30:00 JOHNNA [facility] 2020-02-27 2020-02-27 Outpatient R GRAMM, [facility] [id number] Univers 14:00:00 14:00:00 JOHNNA [facility] 2020-02-22 2020-02-22 Outpatient [facility] [id number] Univers 15:00:00 15:00:00 [facility]ly [facility] 2020-02-22 2020-02-22 Outpatient R LASHON [facility] [id number] Univers 15:00:00 15:00:00 JOHNNA posada [facility] 2020-02-13 2020-02-13 Outpatient R LASHON [facility] [id number] -[id number] Univers 14:30:00 14:30:00 JOHNNA [id number] [facility] 2020-02-13 2020-02-13 Outpatient R LASHON [facility] [id number] Univers 14:30:00 14:30:00 JOHNNA posada [facility] 2020-02-07 2020-02-07 Outpatient R [facility] [id number] -[id number] Univers 14:15:00 14:15:00 [facility] 2020-02-07 2020-02-07 [id number] Univers 14:15:00 14:15:00 JOHNNA posada [facility] 2020-02-04 2020-02-04 Outpatient R LASHON [facility] [id number] -[id number] Univers 00:00:00 00:00:00 JOHNNA [id number] [facility] 2020-02-04 2020-02-04 Outpatient R LASHON, [facility] [id number] Univers 00:00:00 00:00:00 JOHNNA posada [facility] 2020-01-23 2020-01-23 [facility] [id number] Univers 09:30:00 09:30:00 JOHNNA posada [facility] 2019-06-24 2019-06-24 Emergency X DREVER, [facility] ERT [id number] Univers 15:41:03 18:10:00 HASMUKH [facility] Results Test Description Test Time Test Comments Results Result Comments Source POCT GLUCOSE (AUTOMATED) 2021-04-23 14:44:20 Test Item Value Reference Range Interpretation Comme nts POCT GLU (test code = 4435726973) 123 mg/dL 70-110 H Lab Interpretation (test code = 22452-0) [facility]2021-[facility]-23 12:52:39 Test Item Value Reference Range Interpretation Comments POCT GLU (test code = 6582034073) 96 mg/dL 70-110 Lab Interpretation (test code = Normal 99674-9) [facility] METABOLIC PANEL (NA, K, CL, CO2, GLUCOSE, BUN, CREATININE, CA)2021-04-23 11:55:54 Test Item Value Reference Range Interpretation Comments NA (test code = 131 mmol/L 135-145 L 6154876812) K (test code = 4.1 mmol/L 3.5-5.0 6529995521) CL (test code = 98 mmol/L 98-108 6017157722) CO2 TOTAL (test code = 27 mmol/L 23-31 9087205953) AGAP (test code = 2-16 0575547628) BUN (test code = 23 mg/dL 7-23 4577281816) GLUCOSE (test code = 106 mg/dL 70-110 0809458587) CREATININE (test code = 0.87 mg/dL 0.50-1.04 4428491925) CALCIUM (test code = 9.1 mg/dL 8.6-10.6 3042691882) eGFR (test code = mL/min/1.73m2 3825552561) PRAVIN (test code = PRAVIN) Association of Glomerular Filtration Rate (GFR) and Staging of Kidney Disease* + --+ --+ ------+| GFR (mL/min/1.73 m2) ?| With Kidney Damage ?| ?Without Kidney Damage+ --------+ --------+ +| ?>90 ?| ?Stage one ?| ? Normal ?+ ---+ ---+ -------+| ?60-89 ?| ?Stage two ?| ? Decreased GFR ? + --+ --+ ------+| ?30-59 ?| ?Stage three ?| ? Stage three ? + --+ --+ ------+| ?15-29 ?| ?Stage four ? | ? Stage four ?+ ---+ ---+ -------+| ?<15 (or dialysis) ? ?| ?Stage five ? | ? Stage five ?+ ---+ ---+ -------+ *Each stage assumes the associated GFR level has been in effect for at least three months. ?Stages 1 to 5, with or without kidney disease, indicate chronic kidney disease. Notes: Determination of stages one and two (with eGFR >59mL/min/1.73 m2) requires estimation of kidney damage for at least three months as defined by structural or functional abnormalities of the kidney, manifested by either:Pathological abnormalities or Markers of kidney damage (including abnormalities in the composition of the blood or urine or abnormalities in imaging tests). Lab Interpretation Abnormal (test code = 45049-2) [facility] [id number] 11:50:34 Test Item Value Reference Interpretation Comments Range TROPONIN I (test 0.250 ng/mL See_Comment H [Automated code = 3601439352) message] The system which generated this result transmitted reference range : <=0.034. The reference range was not used to interpret this result as normal/abnormal . PRAVIN (test code = Reference (Normal) PRAVIN) Range (defined by the 99th percentile reference limit): <= 0.034 ng/mL Note: Cardiac troponin begins to rise 3-4 hours after the onset of ischemia. Repeat in 4-6 hours if the sample was drawn within 3-4 hours of the onset of the symptom and found normal. Diagnosis of myocardial injury is made with acute changes in cTn concentrations with at least one serial sample above the 99th percentile upper reference limit (URL), taken together with the patient's clinical presentation. Biotin has been reported to cause a negative bias, interpret results relative to patient's use of biotin. Lab Interpretation Abnormal (test code = 22551-3) [facility] [id number] 11:47:51 Test Item Value Reference Range Interpretation Comments NT-proBNP (test code 127 pg/mL See_Comment [Autom ated = 2397822007) message] The system which generated this result transmitted reference range : <=450. The reference range was not used to interpret this result as normal/abnormal . PRAVIN (test code = PRAVIN) Biotin has been reported to cause a negative bias, interpret results relative to patient's use of biotin. Lab Interpretation Normal (test code = 22150-3) [facility] [id number] 11:19:04 Test Item Value Reference Range Interpretation Comments APTT Patient (test See_Comment H [Automat ed code = 3173-2) message] The system which generated this result transmitted reference range : 23 - 38 Seconds . The reference range was not used to interpr et this result as normal/abnormal . PRAVIN (test code = PRAVIN) The [facility] patient population mean normal value for aPTT is 30 seconds. Lab Interpretation Abnormal (test code = 96328-5) [facility] GLUCOSE (AUTOMATED)2021-04-23 11:07:15 Test Item Value Reference Range Interpretation Comments POCT GLU (test code = 5132831965) 109 mg/dL 70-110 Lab Interpretation (test code = Normal 88433-0) [facility] GLUCOSE (AUTOMATED)2021-04-23 11:07:14 Test Item Value Reference Range Interpretation Comments POCT GLU (test code = 2221309589) 116 mg/dL 70-110 H Lab Interpretation (test code = Abnormal 20871-8) [facility] GLUCOSE (AUTOMATED)2021-04-23 11:07:09 Test Item Value Reference Range Interpretation Comments POCT GLU (test code = 2030681364) 150 mg/dL 70-110 H Lab Interpretation (test code = Abnormal 89157-6) [facility] GLUCOSE (AUTOMATED)2021-04-23 02:28:35 Test Item Value Reference Range Interpretation Comments POCT GLU (test code = 0943015240) 151 mg/dL 70-110 H Lab Interpretation (test code = Abnormal 14101-1) [facility] PARTIAL THRMPLAS [id number] 19:59:38 Test Item Value Reference Range Interpretation Comments APTT Patient (test See_Comment H [Automat ed code = 3173-2) message] The system which generated this result transmitted reference range : 23 - 38 Seconds . The reference range was not used to interpr et this result as normal/abnormal . PRAVIN (test code = PRAVIN) The [facility] patient population mean normal value for aPTT is 30 seconds. Lab Interpretation Abnormal (test code = 45266-4) [facility] PARTIAL THRMPLAS [id number] 11:53:11 Test Item Value Reference Range Interpretation Comments APTT Patient (test See_Comment H [Automat ed code = 3173-2) message] The system which generated this result transmitted reference range : 23 - 38 Seconds . The reference range was not used to interpr et this result as normal/abnormal . PRAVIN (test code = PRAVIN) The [facility] patient population mean normal value for aPTT is 30 seconds. Lab Interpretation Abnormal (test code = 68819-6) [facility] [id number] 11:33:04 Test Item Value Reference Interpretation Comments Range TROPONIN I (test 0.378 ng/mL See_Comment H [Automated code = 7290260375) message] The system which generated this result transmitted reference range : <=0.034. The reference range was not used to interpret this result as normal/abnormal . PRAVIN (test code = Reference (Normal) PRAVIN) Range (defined by the 99th percentile reference limit): <= 0.034 ng/mL Note: Cardiac troponin begins to rise 3-4 hours after the onset of ischemia. Repeat in 4-6 hours if the sample was drawn within 3-4 hours of the onset of the symptom and found normal. Diagnosis of myocardial injury is made with acute changes in cTn concentrations with at least one serial sample above the 99th percentile upper reference limit (URL), taken together with the patient's clinical presentation. Biotin has been reported to cause a negative bias, interpret results relative to patient's use of biotin. Lab Interpretation Abnormal (test code = 69974-9) [facility] [id number] 11:30:06 Test Item Value Reference Range Interpretation Comments NT-proBNP (test code 100 pg/mL See_Comment [Autom ated = 9264870874) message] The system which generated this result transmitted reference range : <=450. The reference range was not used to interpret this result as normal/abnormal . PRAVIN (test code = PRAVIN) Biotin has been reported to cause a negative bias, interpret results relative to patient's use of biotin. Lab Interpretation Normal (test code = 26601-0) [facility] METABOLIC PANEL (NA, K, CL, CO2, GLUCOSE, BUN, CREATININE, CA)2021-04-22 11:22:23 Test Item Value Reference Range Interpretation Comments NA (test code = 130 mmol/L 135-145 L 9845245086) K (test code = 4.0 mmol/L 3.5-5.0 5010582045) CL (test code = 99 mmol/L 98-108 0711333701) CO2 TOTAL (test code = 24 mmol/L 23-31 6761658337) AGAP (test code = 2-16 8102969919) BUN (test code = 21 mg/dL 7-23 1907512362) GLUCOSE (test code = 111 mg/dL 70-110 H 2888010169) CREATININE (test code = 0.99 mg/dL 0.50-1.04 5026387228) CALCIUM (test code = 9.2 mg/dL 8.6-10.6 2922055011) eGFR (test code = mL/min/1.73m2 6219030882) PRAVIN (test code = PRAVIN) Association of Glomerular Filtration Rate (GFR) and Staging of Kidney Disease* + --+ --+ ------+| GFR (mL/min/1.73 m2) ?| With Kidney Damage ?| ?Without Kidney Damage+ --------+ --------+ +| ?>90 ?| ?Stage one ?| ? Normal ?+ ---+ ---+ -------+| ?60-89 ?| ?Stage two ?| ? Decreased GFR ? + --+ --+ ------+| ?30-59 ?| ?Stage three ?| ? Stage three ? + --+ --+ ------+| ?15-29 ?| ?Stage four ? | ? Stage four ?+ ---+ ---+ -------+| ?<15 (or dialysis) ? ?| ?Stage five ? | ? Stage five ?+ ---+ ---+ -------+ *Each stage assumes the associated GFR level has been in effect for at least three months. ?Stages 1 to 5, with or without kidney disease, indicate chronic kidney disease. Notes: Determination of stages one and two (with eGFR >59mL/min/1.73 m2) requires estimation of kidney damage for at least three months as defined by structural or functional abnormalities of the kidney, manifested by either:Pathological abnormalities or Markers of kidney damage (including abnormalities in the composition of the blood or urine or abnormalities in imaging tests). Lab Interpretation Abnormal (test code = 29560-5) [facility] 11[facility]22[facility]23 Test Item Value Reference Range Interpretation Comments MAGNESIUM (test code = 5998317419) 2.2 mg/dL 1.7-2.4 Lab Interpretation (test code = Normal 23210-2) [facility]2021-11-03 11:22:03 Test Item Value Reference Range Interpretation Comments PHOSPHORUS (test code = 1754129229) 3.6 mg/dL 2.5-5.0 Lab Interpretation (test code = Normal 15083-2) [facility] WITH [id number] 10:48:03 Test Item Value Reference Range Interpretation Comments WBC (test code = See_Comment [Automated 6690-2) message] The sy stem which generated this result transmitted reference range : 4.30 - 11.10 10*3/?L. The reference range was not used to interpret this result as normal/abnormal . RBC (test code = See_Comment L [Automated 789-8) message] The sy stem which generated this result transmitted reference range : 3.93 - 5.25 10*6/?L. The reference range was not used to interpret this result as normal/abnormal . HGB (test code = 11.2 g/dL 11.6-15.0 L 718-7) HCT (test code = 34.4 % 35.7-45.2 L 4544-3) MCV (test code = 88.9 fL 80.6-95.5 787-2) MCH (test code = 28.9 pg 25.9-32.8 785-6) MCHC (test code = 32.6 g/dL 31.6-35.1 786-4) RDW-SD (test code = 41.1 fL 39.0-49.9 00325-1) RDW-CV (test code = 12.8 % 12.0-15.5 788-0) PLT (test code = See_Comment [Automated 777-3) message] The sy stem which generated this result transmitted reference range : 166 - 358 10*3/ ?L. The reference r violeta was not used to interpret this result as normal/abnormal . MPV (test code = 9.9 fL 9.5-12.9 11450-6) NRBC/100 WBC (test See_Comment [Automat ed code = 9315965916) message] The system which generated this result transmitted reference range : 0.0 - 10.0 /100 WBCs. The refer ence range was not u sed to interpret th is result as normal/abnormal . NRBC x10^3 (test code <0.01 See_Comment [Auto mated = 3306621969) message] The s [employer] which generated this result transmitted reference range : 10*3/?L. The reference range was not used to interpret this result as normal/abnormal . GRAN MAT (NEUT) % 65.4 % (test code = 770-8) IMM GRAN % (test code 0.50 % = 3509172705) LYMPH % (test code = 24.0 % 736-9) MONO % (test code = 8.2 % 5905-5) EOS % (test code = 1.3 % 713-8) BASO % (test code = 0.6 % 706-2) GRAN MAT x10^3(ANC) 6.13 10*3/uL 1.88-7.09 (test code = 9501996612) IMM GRAN x10^3 (test 0.05 10*3/uL 0.00-0.06 code = 7379873300) LYMPH x10^3 (test code 2.25 10*3/uL 1.32-3.29 = 731-0) MONO x10^3 (test code 0.77 10*3/uL 0.33-0.92 = 742-7) EOS x10^3 (test code = 0.12 10*3/uL 0.03-0.39 711-2) BASO x10^3 (test code 0.06 10*3/uL 0.01-0.07 = 704-7) Lab Interpretation Abnormal (test code = 13782-3) [facility] [id number] 00:38:49 Test Item Value Reference Interpretation Comments Range TROPONIN I (test 0.430 ng/mL See_Comment H [Automated code = 5286503760) message] The system which generated this result transmitted reference range : <=0.034. The reference range was not used to interpret this result as normal/abnormal . PRAVIN (test code = Reference (Normal) PRAVIN) Range (defined by the 99th percentile reference limit): <= 0.034 ng/mL Note: Cardiac troponin begins to rise 3-4 hours after the onset of ischemia. Repeat in 4-6 hours if the sample was drawn within 3-4 hours of the onset of the symptom and found normal. Diagnosis of myocardial injury is made with acute changes in cTn concentrations with at least one serial sample above the 99th percentile upper reference limit (URL), taken together with the patient's clinical presentation. Biotin has been reported to cause a negative bias, interpret results relative to patient's use of biotin. Lab Interpretation Abnormal (test code = 34524-7) [facility] GLUCOSE (AUTOMATED)2021-04-22 00:33:45 Test Item Value Reference Range Interpretation Comments POCT GLU (test code = 4450487439) 152 mg/dL 70-110 H Lab Interpretation (test code = Abnormal 65502-8) [facility] TH[facility] [id number] 23:55:41 Test Item Value Reference Range Interpretation Comments APTT Patient (test See_Comment H [Automat ed code = 3173-2) message] The system which generated this result transmitted reference range : 23 - 38 Seconds . The reference range was not used to interpr et this result as normal/abnormal . PRAVIN (test code = PRAVIN) The [facility] patient population mean normal value for aPTT is 30 seconds. Lab Interpretation Abnormal (test code = 03356-6) [facility] GLUCOSE (AUTOMATED)2021-04-21 22:04:44 Test Item Value Reference Range Interpretation Comments POCT GLU (test code = 5353561180) 136 mg/dL 70-110 H Lab Interpretation (test code = Abnormal 31896-6) [facility] GLUCOSE (AUTOMATED)2021-04-21 16:51:59 Test Item Value Reference Range Interpretation Comments POCT GLU (test code = 2456799383) 122 mg/dL 70-110 H Lab Interpretation (test code = Abnormal 29235-0) [facility] Austin[facility]rop[facility] [id number] 14:37:23 Test Item Value Reference Interpretation Comments Range TROPONIN I (test 0.501 ng/mL See_Comment H [Automated code = 7551374609) message] The system which generated this result transmitted reference range : <=0.034. The reference range was not used to interpret this result as normal/abnormal . PRAVIN (test code = Reference (Normal) PRAVIN) Range (defined by the 99th percentile reference limit): <= 0.034 ng/mL Note: Cardiac troponin begins to rise 3-4 hours after the onset of ischemia. Repeat in 4-6 hours if the sample was drawn within 3-4 hours of the onset of the symptom and found normal. Diagnosis of myocardial injury is made with acute changes in cTn concentrations with at least one serial sample above the 99th percentile upper reference limit (URL), taken together with the patient's clinical presentation. Biotin has been reported to cause a negative bias, interpret results relative to patient's use of biotin. Lab Interpretation Abnormal (test code = 66969-8) [facility] (Total Cholesterol, Triglycerides, HDL)2021-04-21 14:25:42 Test Item Value Reference Range Interpretation Comments CHOL (test code = 148 mg/dL 120-200 5357641703) HDL (test code = 39 mg/dL >50 L 0925367710) HDLC RATIO (test code = See_Comment [Au tomated message] 1669176228) The system [employer] generated this result transmit murali reference range : <=4.5. The refe rence range was not u sed to interpret th is result as normal/abnormal . TRIG (test code = 121 mg/dL 30-170 7559837341) LDL CHOL (test code = 85 mg/dL See_Comment [Auto mated message] 98799-5) The system [employer] generated this result transmit murali reference range : <=160. The refe rence range was not u sed to interpret th is result as normal/abnormal . VLDL (test code = 24 mg/dL 5-60 5424388989) Lab Interpretation (test Abnormal code = 56550-3) [facility] (NA, K, CL, CO2, GLUCOSE, BUN, CREATININE, CA)2021-04-21 14:25:22 Test Item Value Reference Range Interpretation Comments NA (test code = 130 mmol/L 135-145 L 7481744755) K (test code = 3.8 mmol/L 3.5-5.0 1030817101) CL (test code = 98 mmol/L 98-108 3870917758) CO2 TOTAL (test code = 26 mmol/L 23-31 2679148148) AGAP (test code = 2-16 3370556898) BUN (test code = 21 mg/dL 7-23 1568423543) GLUCOSE (test code = 102 mg/dL 70-110 7351657910) CREATININE (test code = 0.88 mg/dL 0.50-1.04 0126459617) CALCIUM (test code = 9.3 mg/dL 8.6-10.6 7776906038) eGFR (test code = mL/min/1.73m2 2387056300) PRAVIN (test code = PRAVIN) Association of Glomerular Filtration Rate (GFR) and Staging of Kidney Disease* + --+ --+ ------+| GFR (mL/min/1.73 m2) ?| With Kidney Damage ?| ?Without Kidney Damage+ --------+ --------+ +| ?>90 ?| ?Stage one ?| ? Normal ?+ ---+ ---+ -------+| ?60-89 ?| ?Stage two ?| ? Decreased GFR ? + --+ --+ ------+| ?30-59 ?| ?Stage three ?| ? Stage three ? + --+ --+ ------+| ?15-29 ?| ?Stage four ? | ? Stage four ?+ ---+ ---+ -------+| ?<15 (or dialysis) ? ?| ?Stage five ? | ? Stage five ?+ ---+ ---+ -------+ *Each stage assumes the associated GFR level has been in effect for at least three months. ?Stages 1 to 5, with or without kidney disease, indicate chronic kidney disease. Notes: Determination of stages one and two (with eGFR >59mL/min/1.73 m2) requires estimation of kidney damage for at least three months as defined by structural or functional abnormalities of the kidney, manifested by either:Pathological abnormalities or Markers of kidney damage (including abnormalities in the composition of the blood or urine or abnormalities in imaging tests). Lab Interpretation Abnormal (test code = 81998-6) [facility]for use with Heparin Drip)2021-04-21 13:52:42 Test Item Value Reference Range Interpretation Comments APTT Patient (test >150 See_Comment HH [Automat ed code = 3173-2) message] The system which generated this result transmitted reference range : 23 - 38 Seconds . The reference range was not used to interpr et this result as normal/abnormal . PRAVIN (test code = PRAVIN) The [facility] patient population mean normal value for aPTT is 30 seconds. Lab Interpretation Abnormal (test code = 19369-2) [facility]2021-04-21 13:09:57 Test Item Value Reference Range Interpretation Comments POCT GLU (test code = 4531117213) 100 mg/dL 70-110 Lab Interpretation (test code = Normal 82907-8) [facility] WITH [id number] 10:49:20 Test Item Value Reference Range Interpretation Comments WBC (test code = See_Comment [Automated 6690-2) message] The sy stem which generated this result transmitted reference range : 4.30 - 11.10 10*3/?L. The reference range was not used to interpret this result as normal/abnormal . RBC (test code = See_Comment [Automated 789-8) message] The sy stem which generated this result transmitted reference range : 3.93 - 5.25 10*6/?L. The reference range was not used to interpret this result as normal/abnormal . HGB (test code = 11.6 g/dL 11.6-15.0 718-7) HCT (test code = 35.4 % 35.7-45.2 L 4544-3) MCV (test code = 87.6 fL 80.6-95.5 787-2) MCH (test code = 28.7 pg 25.9-32.8 785-6) MCHC (test code = 32.8 g/dL 31.6-35.1 786-4) RDW-SD (test code = 40.7 fL 39.0-49.9 87952-1) RDW-CV (test code = 12.7 % 12.0-15.5 788-0) PLT (test code = See_Comment [Automated 777-3) message] The sy stem which generated this result transmitted reference range : 166 - 358 10*3/ ?L. The reference r violeta was not used to interpret this result as normal/abnormal . MPV (test code = 10.6 fL 9.5-12.9 61801-7) NRBC/100 WBC (test See_Comment [Automat ed code = 7389947514) message] The system which generated this result transmitted reference range : 0.0 - 10.0 /100 WBCs. The refer ence range was not u sed to interpret th is result as normal/abnormal . NRBC x10^3 (test code <0.01 See_Comment [Auto mated = 4329936338) message] The s ystem which generated this result transmitted reference range : 10*3/?L. The reference range was not used to interpret this result as normal/abnormal . GRAN MAT (NEUT) % 65.1 % (test code = 770-8) IMM GRAN % (test code 0.50 % = 7508691411) LYMPH % (test code = 24.9 % 736-9) MONO % (test code = 7.8 % 5905-5) EOS % (test code = 1.2 % 713-8) BASO % (test code = 0.5 % 706-2) GRAN MAT x10^3(ANC) 5.91 10*3/uL 1.88-7.09 (test code = 1631746050) IMM GRAN x10^3 (test 0.05 10*3/uL 0.00-0.06 code = 0076923999) LYMPH x10^3 (test code 2.27 10*3/uL 1.32-3.29 = 731-0) MONO x10^3 (test code 0.71 10*3/uL 0.33-0.92 = 742-7) EOS x10^3 (test code = 0.11 10*3/uL 0.03-0.39 711-2) BASO x10^3 (test code 0.05 10*3/uL 0.01-0.07 = 704-7) Lab Interpretation Abnormal (test code = 19449-3) [facility] [id number] 08:37:42 Test Item Value Reference Interpretation Comments Range TROPONIN I (test 0.498 ng/mL See_Comment H [Automated code = 9218536340) message] The system which generated this result transmitted reference range : <=0.034. The reference range was not used to interpret this result as normal/abnormal . PRAVIN (test code = Reference (Normal) PRAVIN) Range (defined by the 99th percentile reference limit): <= 0.034 ng/mL Note: Cardiac troponin begins to rise 3-4 hours after the onset of ischemia. Repeat in 4-6 hours if the sample was drawn within 3-4 hours of the onset of the symptom and found normal. Diagnosis of myocardial injury is made with acute changes in cTn concentrations with at least one serial sample above the 99th percentile upper reference limit (URL), taken together with the patient's clinical presentation. Biotin has been reported to cause a negative bias, interpret results relative to patient's use of biotin. Lab Interpretation Abnormal (test code = 16257-5) [facility]2021-04-21 06:38:09 Test Item Value Reference Range Interpretation Comments TSH (test code = See_Comment [Automated message] [id number]) The system [employer] generated this result transmitted ref erence range: 0.45 - 4 .70 mIU/L. The refe rence range was not u sed to interpret this result as normal/abnor mal. Lab Interpretation (test Normal code = 64497-3) [facility]2021-04-21 06:18:43 Test Item Value Reference Range Interpretation Comments HGB A1C (test code = 6.1 % 4.0-5.7 H 4548-4) PRAVIN (test code = PRAVIN) Reference RangesNormal: <5.7%Prediabetes: 5.7 - 6.4%Diabetes: > 6.5% Lab Interpretation (test Abnormal code = 87274-7) [facility] 04:07:54 Test Item Value Reference Range Interpretation Comments APTT Patient (test See_Comment [Automat ed code = 3173-2) message] The system which generated this result transmitted reference range : 23 - 38 Seconds . The reference range was not used to interpr et this result as normal/abnormal . PRAVIN (test code = PRAVIN) The [facility] patient population mean normal value for aPTT is 30 seconds. Lab Interpretation Normal (test code = 85061-0) [facility] (PT) / [id number] 04:05:53 Test Item Value Reference Range Interpretation Comments PROTIME PATIENT (test See_Comment [Auto mated message] code = 5964-2) The system wh ich generated this result transmitted ref erence range: 12.0 - 1 4.7 Seconds. The re ference range was not u sed to interpret this result as normal/abnor mal. INR (test code = 6301-6) Nor mal INR <1.1; Warfarin Therap eutic range 2.0 to 3. 0 or 2.5 to 3.5, dep ending upon the indica tions. Lab Interpretation (test Normal code = 81633-7) [facility] [id number] 01:16:59 Test Item Value Reference Interpretation Comments Range TROPONIN I (test 0.611 ng/mL See_Comment H [Automated code = 3389929379) message] The system which generated this result transmitted reference range : <=0.034. The reference range was not used to interpret this result as normal/abnormal . PRAVIN (test code = Reference (Normal) PRAVIN) Range (defined by the 99th percentile reference limit): <= 0.034 ng/mL Note: Cardiac troponin begins to rise 3-4 hours after the onset of ischemia. Repeat in 4-6 hours if the sample was drawn within 3-4 hours of the onset of the symptom and found normal. Diagnosis of myocardial injury is made with acute changes in cTn concentrations with at least one serial sample above the 99th percentile upper reference limit (URL), taken together with the patient's clinical presentation. Biotin has been reported to cause a negative bias, interpret results relative to patient's use of biotin. Lab Interpretation Abnormal (test code = 00034-9) [facility] [id number] 01:13:55 Test Item Value Reference Range Interpretation Comments NT-proBNP (test code 248 pg/mL See_Comment [Autom ated = 2780557574) message] The system which generated this result transmitted reference range : <=450. The reference range was not used to interpret this result as normal/abnormal . PRAVIN (test code = PRAVIN) Biotin has been reported to cause a negative bias, interpret results relative to patient's use of biotin. Lab Interpretation Normal (test code = 71951-9) [facility]. METABOLIC PANEL (85319)2021-04-21 01:04:56 Test Item Value Reference Range Interpretation Comments NA (test code = 129 mmol/L 135-145 L 3514292054) K (test code = 4.3 mmol/L 3.5-5.0 8168625841) CL (test code = 95 mmol/L 98-108 L 9719594351) CO2 TOTAL (test code = 25 mmol/L 23-31 9166976107) AGAP (test code = 2-16 0253930712) BUN (test code = 24 mg/dL 7-23 H 7761122414) GLUCOSE (test code = 109 mg/dL 70-110 1245700217) CREATININE (test code = 0.92 mg/dL 0.50-1.04 4418141007) TOTAL BILI (test code = 0.7 mg/dL 0.1-1.9 9286526382) CALCIUM (test code = 9.7 mg/dL 8.6-10.6 4339391106) T PROTEIN (test code = 8.1 g/dL 6.3-8.2 4167427953) ALBUMIN (test code = 4.6 g/dL 3.5-5.0 6165951897) ALK PHOS (test code = 96 U/L 34-122 9725866708) ALTv (test code = 19 U/L 5-35 1742-6) AST(SGOT) (test code = 33 U/L 13-40 2810130260) eGFR (test code = mL/min/1.73m2 7932253857) PRAVIN (test code = PRAVIN) Association of Glomerular Filtration Rate (GFR) and Staging of Kidney Disease* + --+ --+ ------+| GFR (mL/min/1.73 m2) ?| With Kidney Damage ?| ?Without Kidney Damage+ --------+ --------+ +| ?>90 ?| ?Stage one ?| ? Normal ?+ ---+ ---+ -------+| ?60-89 ?| ?Stage two ?| ? Decreased GFR ? + --+ --+ ------+| ?30-59 ?| ?Stage three ?| ? Stage three ? + --+ --+ ------+| ?15-29 ?| ?Stage four ? | ? Stage four ?+ ---+ ---+ -------+| ?<15 (or dialysis) ? ?| ?Stage five ? | ? Stage five ?+ ---+ ---+ -------+ *Each stage assumes the associated GFR level has been in effect for at least three months. ?Stages 1 to 5, with or without kidney disease, indicate chronic kidney disease. Notes: Determination of stages one and two (with eGFR >59mL/min/1.73 m2) requires estimation of kidney damage for at least three months as defined by structural or functional abnormalities of the kidney, manifested by either:Pathological abnormalities or Markers of kidney damage (including abnormalities in the composition of the blood or urine or abnormalities in imaging tests). Lab Interpretation Abnormal (test code = 20876-4) [facility]21[facility] 01:04:35 Test Item Value Reference Range Interpretation Comments LIPASE (test code = 6795108395) 130 U/L 0-220 Lab Interpretation (test code = Normal 34671-1) [facility] WITH [id number] 00:44:32 Test Item Value Reference Range Interpretation Comments WBC (test code = See_Comment [Automated message] 6690-2) The system [employer] generated this result transmitted ref erence range: 4.30 - 1 1.10 10*3/?L. The re ference range was not u sed to interpret this result as normal/abnor mal. RBC (test code = See_Comment [Automated message] 789-8) The system [employer] generated this result transmitted ref erence range: 3.93 - 5 .25 10*6/?L. The re ference range was not u sed to interpret this result as normal/abnor mal. HGB (test code = 12.5 g/dL 11.6-15.0 718-7) HCT (test code = 38.4 % 35.7-45.2 4544-3) MCV (test code = 88.3 fL 80.6-95.5 787-2) MCH (test code = 28.7 pg 25.9-32.8 785-6) MCHC (test code = 32.6 g/dL 31.6-35.1 786-4) RDW-SD (test code 40.6 fL 39.0-49.9 = 66490-7) RDW-CV (test code 12.5 % 12.0-15.5 = 788-0) PLT (test code = See_Comment [Automated message] 777-3) The system whic h generated this result transmitted ref erence range: 166 - 35 8 10*3/?L. The re ference range was not u sed to interpret this result as normal/abnor mal. MPV (test code = 9.5 fL 9.5-12.9 00979-1) NRBC/100 WBC (test See_Comment [Automat ed message] code = 9052988521) The syste m which generated this result transmitted ref erence range: 0.0 - 10 .0 /100 WBCs. The refer ence range was not u sed to interpret this result as normal/abnor mal. NRBC x10^3 (test <0.01 See_Comment [Automated message] code = 5710555717) The syste m which generated this result transmitted ref erence range: 10*3/?L. The reference range was not used to interpr et this result as normal/abnormal . GRAN MAT (NEUT) % 67.2 % (test code = 770-8) IMM GRAN % (test 0.60 % code = 0139471671) LYMPH % (test code 23.6 % = 736-9) MONO % (test code 7.4 % = 5905-5) EOS % (test code = 0.8 % 713-8) BASO % (test code 0.4 % = 706-2) GRAN MAT 6.95 10*3/uL 1.88-7.09 x10^3(ANC) (test code = 4053612914) IMM GRAN x10^3 0.06 10*3/uL 0.00-0.06 (test code = 3337083700) LYMPH x10^3 (test 2.44 10*3/uL 1.32-3.29 code = 731-0) MONO x10^3 (test 0.76 10*3/uL 0.33-0.92 code = 742-7) EOS x10^3 (test 0.08 10*3/uL 0.03-0.39 code = 711-2) BASO x10^3 (test 0.04 10*3/uL 0.01-0.07 code = 704-7) [facility]"
[2021-05-23 18:44] LABS: Absolute Lymphocytes (CBC) 1.5 K/uL (0.7-4.9); Basophils % 0.7 % (0-1.3); Hematocrit 32.3 % (36.0-45.0); Lymphocytes % 11.2 % (15.3-44.8); MPV 7.5 fL (7.6-11.3); RBC Red Blood Cell Count 3.66 M/uL (3.86-4.86)
[2021-05-23 18:47] LABS: Protime INR 1.02
[2021-05-23 19:01] LABS: ALT/SGPT 18 U/L (12-78); AST/SGOT 24 U/L (15-37); Albumin 2.7 g/dL (3.4-5.0); Alkaline Phosphatase 76 U/L (45-117); BUN Blood Urea Nitrogen 21 mg/dL (7-18); Bicarbonate 26 mmol/L (21-32); Bilirubin Direct 0.2 mg/dL (0-0.2); Bilirubin Total 0.6 mg/dL (0.2-1.0); Glucose Level 127 mg/dL (74-106); Magnesium 2.2 mg/dL (1.8-2.4); NT PRO-BNP 182 pg/mL (<450); Potassium 3.6 mmol/L (3.5-5.1); Protein, Total 6.8 g/dL (6.4-8.2); Sodium Level 136 mmol/L (136-145); Troponin (Emerg Dept Use Only) < 0.02 ng/mL (0.0-0.045)
--- NOTE | 2021-05-23 19:22 | RAD REPORT ---
EXAM DESCRIPTION: Jose Single View05/23/2021 7:01 pm CLINICAL HISTORY: Chest pain COMPARISON: 2017 FINDINGS: The lungs appear clear of acute infiltrate. The heart is normal size IMPRESSION: No acute abnormalities displayed
--- NOTE | 2021-05-23 19:26 | RAD REPORT ---
EXAM DESCRIPTION: CT - Head Brain Wo Cont - 05/23/2021 6:54 pm CLINICAL HISTORY: Syncope COMPARISON: 2013 TECHNIQUE: Computed axial tomography of the head was obtained. IV contrast was not requested. All CT scans are performed using dose optimization technique as appropriate and may include automated exposure control or mA/KV adjustment according to patient size. FINDINGS: An intracranial bleed is not seen . The ventricles are normal in caliber. No extra-axial fluid collection is noted. Right frontal scalp swelling. Fluid within the sinuses/ mastoids is not seen. IMPRESSION: No acute intracranial abnormality is seen. If patient's symptoms persist MRI of the bra in would be recommended.
[2021-05-23] MEDS ORDERED: NA CHLORIDE 0.9% 250 ML ONE (21:03)
--- NOTE | 2021-05-23 23:55 | EDPHYS ---
Physician Documentation [facility] Name: Radha Laguna Age: 86 yrs Sex: Female : 1935 Arrival Date: 05/23/2021 Time: 18:15 Bed 13 Private MD: ED Physician Gamaliel Blackmon HPI: 05/23 18:39 This 86 yrs old Female presents to ER via EMS with complaints of Dizziness. pm1 18:39 The patient presents with feeling faint. Onset: The symptoms/episode began/occurred pm1 today. Context: occurred outdoors, occurred while the patient was standing up from seated position. Modifying factors: The symptoms are alleviated by nothing, the symptoms are aggravated by changing position. Associated signs and symptoms: Pertinent negatives: abdominal pain, chest pain, nausea, shortness of breath, vomiting. Severity of symptoms: in the emergency department the symptoms have improved. Patient's baseline: Neuro: alert and fully oriented, Motor: no deficits, Ambulation: walks without assistance, Speech: normal. The patient has experienced a previous episode, last week, Patient with fall injury in the bath tub. Seen at [facility] for fall injury. Patient has been seen recently by her gaming cashier this week and has a scheduled appointment on Tuesday for stress test and echo. Historical: - Allergies: 18:30 does not like morphine; ss 18:30 Morphine; ss - PMHx: 18:30 Diabetes - NIDDM; Hypertension; Diabetes mellitus; ss - Social history:: Smoking status: unknown. ROS: 18:39 Constitutional: Negative for fever, chills, and weight loss, Neck: Negative for injury, pm1 pain, and swelling, Cardiovascular: Negative for chest pain, palpitations, and edema, Respiratory: Negative for shortness of breath, cough, wheezing, and pleuritic chest pain, Abdomen/GI: Negative for abdominal pain, nausea, vomiting, diarrhea, and constipation, : Negative for injury, bleeding, discharge, and swelling, MS/Extremity: Negative for injury and deformity, Skin: Negative for injury, rash, and discoloration. 18:39 Neuro: Positive for dizziness, Negative for headache, numbness, tingling. 18:39 All other systems are negative. Exam: 18:39 Constitutional: This is a well developed, well nourished patient who is awake, alert, pm1 and in no acute distress. Head/Face: Normocephalic, atraumatic. 18:39 Abdomen/GI: Soft, non-tender, with normal bowel sounds. No distension or tympany. No guarding or rebound. No evidence of tenderness throughout. Back: No spinal tenderness. No costovertebral tenderness. Full range of motion. Skin: Warm, dry with normal turgor. Normal color with no rashes, no lesions, and no evidence of cellulitis. MS/ Extremity: Pulses equal, no cyanosis. Neurovascular intact. Full, normal range of motion. 18:39 Cardiovascular: Exam negative for acute changes, Rate: normal, Rhythm: regular, Pulses: no pulse deficits are appreciated, Edema: is not appreciated. 18:39 Respiratory: Exam negative for acute changes, respiratory distress, shortness of breath, Breath sounds: are clear throughout. 18:39 Neuro: Exam negative for acute changes, Orientation: is normal, Mentation: is normal, Motor: moves all fours, strength is normal, Sensation: is normal, no obvious gross deficits. Vital Signs: 18:25 BP 145 / 50; Pulse 50; Resp 16; Temp 97.8(O); Pulse Ox 99% on R/A; Weight 65.77 kg; ss Height 4 ft. 9 in. (144.78 cm); Pain 0/10; 19:30 BP 121 / 47; Pulse 53; Resp 13 S; Pulse Ox 99% on R/A; bb 20:44 BP 118 / 47 Supine; Pulse 59; bb 20:45 BP 121 / 55 Sitting; Pulse 59; Resp 16 S; Pulse Ox 99% on R/A; bb 20:47 BP 110 / 45 Standing; Pulse 60; bb 22:10 BP 129 / 51; Pulse 63; Resp 14 S; Pulse Ox 97% on R/A; bb 05/24 00:17 BP 122 / 59; Pulse 56; Resp 16 S; Temp 97.8(O); Pulse Ox 100% on R/A; bb 05/23 18:25 Body Mass Index 31.38 (65.77 kg, 144.78 cm) ss MDM: 05/23 18:47 Patient medically screened. pm1 21:37 ED course: Patient does not want melchor catheter for urine sample. pm1 22:37 Data reviewed: vital signs. Data interpreted: Pulse oximetry: on room air is 97 %. pm1 Interpretation: normal. 22:37 Counseling: I had a detailed discussion with the patient and/or guardian regarding: lab pm1 results, radiology results. 22:49 Counseling: I had a detailed discussion with the patient and/or guardian regarding: the pm1 historical points, exam findings, and any diagnostic results supporting the discharge/admit diagnosis, Shared decision making regarding plan or care. Patient and daughter offered admission. However. patient would like to go home. Patient without any dizziness or difficulty ambulating in the ER post bolus of IV fluid by EMS and in the ER. Likely orthostatic hypotension and dehydration causing the patient dizziness. 05/23 18:28 Order name: Basic Metabolic Panel; Complete Time: 19:02 pm1 05/23 18:28 Order name: CBC with Diff; Complete Time: 18:46 pm1 05/23 18:28 Order name: LFT's; Complete Time: 19:02 pm1 05/23 18:28 Order name: Magnesium; Complete Time: 19:02 pm1 05/23 18:28 Order name: NT PRO-BNP; Complete Time: 19:02 pm1 05/23 18:28 Order name: PT-INR; Complete Time: 18:49 pm1 05/23 18:28 Order name: Troponin (emerg Dept Use Only); Complete Time: 19:02 pm1 05/23 18:28 Order name: XRAY Chest (1 view); Complete Time: 19:30 pm1 05/23 18:28 Order name: EKG; Complete Time: 18:29 pm1 05/23 18:28 Order name: Cardiac monitoring; Complete Time: 18:29 pm1 05/23 18:28 Order name: EKG - Nurse/Tech; Complete Time: 18:29 pm1 05/23 18:28 Order name: CT Head Brain wo Cont; Complete Time: 19:30 pm1 05/23 18:36 Order name: COVID-19 SARS RT PCR (Document "Date of Onset" if Symptomatic); Complete ss Time: 20:20 05/23 18:28 Order name: IV Saline Lock; Complete Time: 18:29 pm1 05/23 18:28 Order name: Labs collected and sent; Complete Time: 18:37 pm1 05/23 18:28 Order name: O2 Per Protocol; Complete Time: 18:29 pm1 05/23 18:28 Order name: O2 Sat Monitoring; Complete Time: 18:29 pm1 05/23 18:28 Order name: Orthostatic Blood Pressure; Complete Time: 21:27 pm1 Administered Medications: 21:02 Drug: NS 0.9% 250 ml Route: IV; Rate: calculated rate; Site: right forearm; bb 22:00 Follow up: IV Status: Completed infusion; IV Intake: 250ml bb Disposition: 05/24 08:01 Co-signature as Attending Physician, Gamaliel Blackmon MD I agree with the assessment and rn plan of care. Attestation: The patient's history, exam findings, diagnostics, and a summary of any interventions or procedures was reviewed in detail with Irvin Marcial NP. Disposition Summary: 05/23/21 23:54 Discharge Ordered Location: Home pm1 Problem: new pm1 Symptoms: have improved pm1 Condition: Stable pm1 Diagnosis - Dehydration pm1 - Orthostatic hypotension pm1 Followup: pm1 - With: Emergency Department - When: As needed - Reason: Worsening of condition Followup: pm1 - With: Private Physician - When: 2 - 3 days - Reason: Recheck today's complaints, Continuance of care, Re-evaluation by your physician Discharge Instructions: - Discharge Summary Sheet pm1 - Dehydration, Elderly pm1 - Orthostatic Hypotension pm1 - Rehydration, Elderly pm1 Forms: - Medication Reconciliation Form pm1 - Thank You Letter pm1 - Antibiotic Education pm1 - Prescription Opioid Use pm1 Signatures: Dispatcher [employer] Kaila Casey RN RN bb Nieto, Roman, MD MD rn Smirch, Shelby, RN RN ss Marinas, Patrick, NP [employer]IEF [employer]ARIAN [employer] WITH [employer] pm1
--- NOTE | 2021-05-23 23:55 | ER ---
Nurse's Notes [facility] Name: Radha Laguna Age: 86 yrs Sex: Female : 1935 Arrival Date: 05/23/2021 Time: 18:15 Bed 13 Private MD: Diagnosis: Dehydration;Orthostatic hypotension Presentation: 05/23 18:25 Chief complaint: Patient's son or daughter states: Syncopal episode that occurred prior ss to arrival. Daughter reports that patient did not fall as two family members were with her assisting her to ambulate. Pt c/o dizziness prior to syncopal episode. EMS reports initial VS were 94/54, HR 44 BGL 145. Coronavirus screen: Client denies travel out of the [place] in the last 14 days. Ebola Screen: Patient denies exposure to infectious person. Patient denies travel to an Ebola-affected area in the 21 days before illness onset. Initial Sepsis Screen: Does the patient meet any 2 criteria? No. Patient's initial sepsis screen is negative. Does the patient have a suspected source of infection? No. Patient's initial sepsis screen is negative. Risk Assessment: Do you want to hurt yourself or someone else? Patient reports no desire to harm self or others. Onset of symptoms was May 23, 2021. Care prior to arrival: IV initiated. 20 GA, in the right antecubital area, Glucose check: 145. 18:25 Method Of Arrival: EMS: [facility] 18:25 Acuity: JULIET 3 18:30 Note Took a [place] 1 hour ago. Triage Assessment: 18:54 General: Appears in no apparent distress. comfortable, Behavior is calm, cooperative. jh6 Pain: Denies pain. Historical: - Allergies: 18:30 does not like morphine; ss 18:30 Morphine; - PMHx: 18:30 Diabetes - NIDDM; Hypertension; Diabetes mellitus; - Social history:: Smoking status: unknown. Screenin:54 Abuse screen: Denies threats or abuse. Nutritional screening: No deficits noted. jh6 Tuberculosis screening: No symptoms or risk factors identified. Fall Risk Secondary diagnosis (15 points) impaired mobility, near syncope . Assessment: 19:30 General: Appears in no apparent distress. Behavior is calm, cooperative. Neuro: Level bb of Consciousness is awake, alert, obeys commands, Oriented to person, place, situation. Cardiovascular: Heart tones S1 S2 present Capillary refill < 3 seconds Patient's skin is warm and dry. Respiratory: Airway is patent Respiratory effort is even, unlabored, Respiratory pattern is regular. GI: Abdomen is non-distended. Derm: Skin is pink, warm \\T\\ dry. Bruising that is dark purple, right periorbital area. Musculoskeletal: Circulation, motion, and sensation intact. 20:30 Reassessment: Patient is alert, oriented x 3, equal unlabored respirations, skin bb warm/dry/pink. resting quietly, IV site intact, family at bedside. 21:00 Reassessment: pt ambulating slowly states she does not feel dizzy. bb 22:21 Reassessment: pt appears to be sleeping, eyes closed, resp unlabored, family at bedside.bb 23:17 Reassessment: pt in bathroom with daughter attempting to collect urine sample. bb 05/24 00:14 Reassessment: Patient is alert, oriented x 3, equal unlabored respirations, skin bb warm/dry/pink. pt and family verbalized understanding of and agrees to plan of care discharge instructions given pt assisted to exit via wheelchair accompanied by family. Vital Signs: 05/23 18:25 BP 145 / 50; Pulse 50; Resp 16; Temp 97.8(O); Pulse Ox 99% on R/A; Weight 65.77 kg; ss Height 4 ft. 9 in. (144.78 cm); Pain 0/10; 19:30 BP 121 / 47; Pulse 53; Resp 13 S; Pulse Ox 99% on R/A; bb 20:44 BP 118 / 47 Supine; Pulse 59; bb 20:45 BP 121 / 55 Sitting; Pulse 59; Resp 16 S; Pulse Ox 99% on R/A; bb 20:47 BP 110 / 45 Standing; Pulse 60; bb 22:10 BP 129 / 51; Pulse 63; Resp 14 S; Pulse Ox 97% on R/A; bb 05/24 00:17 BP 122 / 59; Pulse 56; Resp 16 S; Temp 97.8(O); Pulse Ox 100% on R/A; bb 05/23 18:25 Body Mass Index 31.38 (65.77 kg, 144.78 cm) ED Course: 05/23 18:15 Patient arrived in ED. ds1 18:18 Irvin Marcial, KAMI is PHCP. pm1 18:18 Gamaliel Blackmon MD is Attending Physician. pm1 18:28 Patient has correct armband on for positive identification. Placed in gown. Bed in low mh5 position. Call light in reach. Side rails up X2. Adult w/ patient. Warm blanket given. classroom monitor on. Pulse ox on. NIBP on. 18:28 EKG done, by ED staff, reviewed by Irvin Marcial NP. Maintain EMS IV. Dressing mh5 intact. Good blood return noted. Site clean \\T\\ dry. 18:30 Triage completed. ss 18:37 Initial lab(s) drawn, by tn, sent to lab. 5 18:43 COVID swab sent to lab. mh5 18:43 COVID-19 SARS RT PCR (Document "Date of Onset" if Symptomatic) Sent. mh5 18:44 Basic Metabolic Panel Sent. 5 18:44 CBC with Diff Sent. 5 18:44 LFT's Sent. 5 18:44 Magnesium Sent. 5 18:44 NT PRO-BNP Sent. mh5 18:44 PT-INR Sent. mh5 18:44 Troponin (emerg Dept Use Only) Sent. mh5 18:[address] via stretcher. jh6 18:53 CT Head Brain wo Cont In Process Unspecified. EDMS 19:01 XRAY Chest (1 view) In Process Unspecified. EDMS 21:27 Kaila Hamilton, RN is Primary Nurse. bb 12 00:15 IV discontinued, intact, bleeding controlled, No redness/swelling at site. Pressure bb dressing applied. 00:16 No provider procedures requiring assistance completed. bb Administered Medications: 05/23 21:02 Drug: NS 0.9% 250 ml Route: IV; Rate: calculated rate; Site: right forearm; bb 22:00 Follow up: IV Status: Completed infusion; IV Intake: 250ml bb Intake: 22:00 IV: 250ml; Total: 250ml. bb Outcome: 23:54 Discharge ordered by . pm1 1205 00:16 Condition: stable bb Discharge instructions given to patient, family, Instructed on discharge instructions, follow up and referral plans. Demonstrated understanding of instructions, follow-up care. 00:17 Discharged to home via wheelchair, with family. bb 00:17 Patient left the ED. bb Signatures: Dispatcher [employer] EDKY Jeannie Patten ds1 Kaila Hamilton RN RN bb Patti Ashton RN RN ss Irvin Marcial, MACHINIST OUTSIDE MACHINIST OUTSIDE pm1 Nani Szymanski 5 Jw, AILYN Baird RN jh6
[2021-05-24 00:40] VITALS: TEMP 97.8
[2021-05-24 00:48] VITALS: BP 122/59; O2SAT 100
== END 2021-05-24 00:17 | disposition home or self-care (01) ==
LOC: ER 18:13
DX: E86.0 Dehydration (principal); I95.1 Orthostatic hypotension; I10 Essential (primary) hypertension; E11.9 Type 2 diabetes mellitus without complications; Z88.5 Allergy status to narcotic agent; Z20.822 Contact with and (suspected) exposure to COVID-19
CPT/HCPCS: 96365; 93005; 85025; 80048; 36415; 83735; 85610; 80076; 84484; 83880; 70450; 71045; 99285; U0003; J7050

== ENCOUNTER 2022-08-12 21:41 | Emergency (ER) | payer OTHER ==
--- OUTSIDE RECORDS SUMMARY | 2022-08-12 21:48 | XMS REPORT | Continuity of Care Document ---
:1935 Author Organization [facility] t Address [address] [place] [address] [address]. [address] [place] [address] Care Team Providers Name Role Phone IRASEMA MORTON A Primary Care Physician Unavailable Daniamilcar_T Attending Clinician Unavailable Eunice ROBERTSON, Osito A Attending Clinician Unavailable Audie Kwon MD Attending Clinician Cherie DANIEL, Blair Alford Attending Clinician Jeannine Yates MD Attending Clinician JEANNINE YATES Attending Clinician Unavailable Doctor Unassigned, [place] Attending Clinician Unavailable JOHNNA OATES Attending Clinician Unavailable HASMUKH SANTANA Attending Clinician Unavailable Daniel_T Admitting Clinician Unavailable Jeannine Yates MD Admitting Clinician JEANNINE YATES Admitting Clinician Unavailable Payers Payer Name Policy Type Policy Number Effective Date Expiration Date S lilia [facility] - MEDICARE [id number] COMPLETE (MEDICARE REPLACEMENT HMO) [facility] DUAL [id number] 2021 COMP HMO D SNP 00:00:00 [facility] PLUS [id number] 2016 00:00:00 [place] [id number] 2020 00:00:00 [facility] - [id number] DUAL COMPLETE - DUAL ELIGIBLE - SNP (MEDICARE-MEDICAID REPLACEMENT HMO) Problems Condition Condition Condition Status Onset Resolution Last Treating Co mments Source Name Details Category Date Date Treatment Clinician Date 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 2-15 Family mellitus Mellitus 00:00: Practi c 00 e Body mass Body Mass Problem Active Deirdre chakraborty index 30+ Index 30+ 2-15 Fami ly - obesity - Obesity 00:00: Prac tic 00 e Chronic Chronic Problem Active [facility] kidney Kidney 2-15 Family disease Disease 00:00: Practic stage 3 Stage 3 00 e Elevated Elevated Disease Active 2020-06 Unive rs troponin I troponin I 06-21 it y of level level 00:00: [place] [facility] Essential Essential Disease Active 2020-06 Uni vers hypertensi hypertensi 06-21 it y of on on 00:00: [place] [facility] Dyslipidem Dyslipidem Disease Active 2020-06 U nivers ia ia 06-21 ity of 00:00: [place] [facility] Abdominal Abdominal Disease Active 2020-06 Uni vers pain pain 06-20 ity of 00:00: [place] 00 Medical Branch Depressive Depressive Problem Active V illage disorder Disorder 11-14 Family 00:00: Practic 00 e 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 5-08 Family mellitus Mellitus 00:00: Practi c without without 00 e complicati Complicati on on Hyperlipid Hyperlipid Problem Active V illage emia emia -08 Family 00:00: Practic 00 e Obesity Obesity Problem Active [facility] 5-08 Family 00:00: Practic 00 e Essential Essential Problem Active Deirdre chakraborty hypertensi Hypertensi -08 Fa [place] on on 00:00: Practic 00 e Hypertensi Hypertensi Problem Active [facility] illage ve ve 5-08 Family disorder Disorder 00:00: Practi c 00 e Gastroesop Gastroesop Problem Active V illage hageal hageal 5-08 Family reflux Reflux 00:00: Practic disease Disease 00 e without without esophagiti Esophagiti s s Clinical Clinical Problem Active [place] ge finding Finding 08 Family 00:00: Practic 00 e General General Problem Active [facility] finding of Finding of 5-08 Fa [place] observatio Observatio 00:00: Pr actic n of n of 00 e patient Patient Finding of Finding of Problem Active [facility] esophagus Esophagus 5-08 Fami ly 00:00: Practic 00 e No known No known Disease Unive rs active active ity of problems problems [facility] Anxiety Anxiety Problem Active 2021-06-30 Me blair with with 03:00:55 l depression depression He rmann Active Problem 06/30/2021 [facility] CAD of CAD of Problem Active 2021-06-30 Christian mary ellen [place] 03:00:55 l Artery W Artery W Sage n Angina Angina Active Problem 06/30/2021 [facility] Type 2 Type 2 Diagnosis Active 2021-06-30 Me blair diabetes diabetes 03:00:55 l mellitus mellitus Sage n without without complicati complicati ons ons Active Diagnosis 06/30/2021 [facility] Essential Essential Diagnosis Active 2021-06-30 Memoria (primary) (primary) 03:00:55 l hypertensi hypertensi He rmann on on Active Diagnosis 06/30/2021 [facility] Other Other Problem Active 2021-06-30 Memor ia hyperlipid hyperlipid 03:00:55 l emia emia Imer Active Problem 06/30/2021 [facility] Other Other Problem Active 2021-06-30 Memor ia hyperlipid hyperlipid 03:00:55 l emia emia Imer Active Problem 06/30/2021 [facility] 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 03:00:55 l [place] Imer 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 Active Problem 06/30/2021 [facility] Mild Mild Problem Active 2021-06-30 Memor ia atheroscle atheroscle 03:00:55 l rosis of rosis of Sage n both both carotid carotid arteries arteries Active Problem 06/30/2021 [facility] CAD of CAD of Diagnosis Active 2021-06-30 Me moria [place] 03:00:55 l Artery w/o Artery w/o He rmann Angina Angina Active Diagnosis 06/30/2021 [facility] Anemia, Anemia, Problem Active 2021-06-30 Me moria blood loss blood loss 03:00:55 l Active Imer Problem 06/30/2021 [facility] Allergies, Adverse Reactions, Alerts Allergy Allergy Status Severity Reaction(s) Onset Inactive Treating Comm ents Source Name Type Date Date Clinician morphine morphine Active nervousness M emoria 1-10 l 00:00: 00 Morphine Propensi Active Nausea 2020-06 Univer s ty to and/or 06-20 ity of adverse Vomiting 00:00: [place] reaction 00 Medical s Branch MORPHINE DRUG Active N/V 2020-06 Univers INGREDI 06-20 ity of 00:00: [place] 00 Medical Branch Morphine Allergy Active [place] to Family substanc Practic e e NO KNOWN Drug Active Univers ALLERGIE Class ity of S [place] [facility] Social History Social Habit Start Date Stop Date Quantity Comments Source Exposure to Not sure [facility] SARS-CoV-2 [place] [facility] (event) Branch History SDOH University o f Alcohol Std [place] [facility] Drinks Branch History SDOH University o f Alcohol Binge [place] [facility] al [facility] History SDMN University o f Alcohol Comment [place] [facility] Alcohol intake 2021-04-21 2021-04-21 Lifetime University of 00:00:00 00:00:00 non-drinker [place] [facility] (finding) Branch Tobacco use and 2020-01-23 2020-01-23 Never used Universit y of exposure 00:00:00 00:00:00 [place] [facility] History SDOH 2020-01-23 2020-01-23 1 University o f Alcohol Frequency 00:00:00 00:00:00 [facility] edical Branch Sex Assigned At [birth year] Universit y of 00:00:00 00:00:00 [place] [facility] Smoking Status Start Date Stop Date Source Never smoker [facility] Medications Ordered Filled Start Stop Current Ordering Indication Dosage Frequency Signature Comments Components Source Medication Medication Date Date Medication? Clinician (SIG) Name Name aspirin Yes TERRY 1 tab(s) Mem oria - GAMAL l 03:00: [place] 55 clopidogrel Yes TERRY 1 tab(s) Memoria - GAMAL l 03:00: [place] 55 carvedilol Yes TERRY 1 tab(s) Memoria 06-30 GAMAL l 03:00: [place] 55 famotidine 0 Yes TERRY 1 tab(s) Memoria 06-30 GAMAL l 03:00: [place] 55 Januvia 0 Yes TERRY 1 tab(s) Mem oria 06-30 GAMAL l 03:00: [place] 55 Micardis 0 Yes TERRY 1 tab(s) Me moria HCT 06-30 GAMAL l 03:00: [place] 55 hyoscyamine 0 Yes TERRY 1 tab(s) Memoria 06-30 GAMAL l 03:00: [place] 55 Creon 0 Yes TERRY 1 cap(s) Memor ia 06-30 GAMAL l 03:00: [place] 55 ondansetron Yes TERRY 1 tab(s) Memoria 06-30 GAMAL l 03:00: [place] 55 acetaminoph 0 Yes TERRY 1 tab(s) Memoria en-hydrocod 06-30 GAMAL l one 03:00: 55 aspirin 81 2020-06 Yes [id number] 81mg Take 1 U nivers mg chewable 1-05 tablet by ity of tablet 00:00: mouth [place] 00 daily. Medical Branch clopidogreL 2020-06 Yes [id number] 75mg Take 1 Univers 75 mg 1-05 tablet by ity of tablet 00:00: mouth [place] 00 daily. Medical Branch aspirin 81 2020-06 Yes [id number] 81mg Take 1 U nivers mg chewable 1-05 tablet by ity of tablet 00:00: mouth [place] 00 daily. Medical Branch clopidogreL 2020-06 Yes [id number] 75mg Take 1 Univers 75 mg 1-05 tablet by ity of tablet 00:00: mouth [place] 00 daily. Medical Branch amLODIPine 2020-06 Yes 10mg Take 10 mg U nivers (NORVASC) -04 by mouth ity of 10 mg 13:30: [...] Medical Branch lipase/prot 2020-06 Yes Take by Uni vers ease/amylas 1-04 mouth. ity of e (CREON 13:30: [place] ORAL) Medical Branch fluticasone 2020-06 Yes Use in [facility] [facility] ers propionate 1-04 each ity of (FLONASE 13:30: [...] Medical Branch lipase/prot 2020-06 Yes Take by Uni vers ease/amylas 1-04 mouth. ity of e (CREON 13:30: [place] ORAL) Medical Branch fluticasone 2020-06 Yes Use in [facility] [facility] ers propionate 1-04 each ity of (FLONASE 13:30: [...] No 500mg Take 500 Un allie (GLUCOPHAGE 1-04 11-04 mg by ity of ) 500 mg 11:11: 00:00 mouth 2 [place] tablet 30 :00 (two) Medical times Branch daily with meals. hyoscyamine 2020-06- No .125mg Take 0.125 Univers (LEVSIN) -04 11-04 mg by ity of 0.125 mg 11:11: 00:00 [place] tablet 30 :00 needed. Medical Branch acetaminoph 2020-06- No 1{tbl} Take 1 Tab Univers en-codeine -09 28-04 by mouth ity of (TYLENOL 11:11: 00:00 [place]. [place] #3[place] 300-30 30 :00 Medical mg tablet Branch telmisartan 2020-06- No 1{tbl} Take 1 Tab Univers -hydrochlor -09 28-04 by mouth ity of othiazide 11:11: 00:00 daily. [place] (MICARDIS 30 :00 Medical HCT) Branch 80-12.5 mg per tablet alum-mag 2020-06 Yes 30mL 30 mL, Univers hydroxide-s -04 Oral, ity of imeth 00:23: Q4HPRN, [place] (MAALOX 33 Starting Medical PLUS / on Wed Branch MAG-AL 04/22/21 at PLUS) 1923, 200-200-20 Until mg/5 mL Discontinu suspension ed, 30 mL Routine, Indigestio n, Heartburn, Gas carvediloL 2020-06 Yes [id number] 3.125mg Take 1 Univers 3.125 mg 1-04 tablet by ity of tablet 00:00: mouth 2 [place] 00 (two) Medical times Branch daily with meals. nitroglycer 2020-[id number] 1 Univers in 0.4 mg 1-04 tablet ity of sublingual 00:00: under the [place] tablet 00 tongue Medical every 5 Branch (five) minutes as needed for Chest pain. carvediloL 2020-06 Yes [id number] 3.125mg Take 1 Univers 3.125 mg 1-04 tablet by ity of tablet 00:00: mouth 2 [place] 00 (two) Medical times Branch daily with meals. nitroglycer 2020-[id number] 1 Univers in 0.4 mg 1-04 tablet ity of sublingual 00:00: under the [place] tablet 00 tongue Medical every 5 Branch (five) minutes as needed for Chest pain. lipase-prot 2020-06 Yes 2{capsu 2 capsule, Univers ease-amylas 06-22 le} Oral, TID ity of e (CREON) 16:00: MEALS, [place] 12,000-38,0 00 First dose Me dical 00 -60,000 on Tue unit 04/22/21 at capsule 2 1100, capsule Until Discontinu ed famotidine 2020-06 Yes 20mg 20 mg, Unive rs (PEPCID AC) 06-22 Oral, ity of tablet 20 14:00: DAILY, [place] mg 00 First dose Medical (after Branch last modificati on) on Tue04/22/21 at 0900, Until Discontinu ed, Routine sulfur 2020-06- No [id number] 5mL 5 mL, Unive rs hexafluorid 06-21 Intravenou i ty of e microsphr 21:00: 21:00 s, ONCE, 1 [place] (LUMASON) 00 :00 dose, On Medica l injection 5 Tue Branch mL 04/21/21 at 1600, Routine
membership secretary approving Restricted medication : ELIS MEANS amLODIPine 2020-06 Yes 10mg 10 mg, Unive rs (NORVASC) 06-21 Oral, ity of tablet 10 14:00: DAILY, [place] mg 00 First dose Medical on Tue Branch 04/21/21 at 0900, Until Discontinu ed, Routine SITagliptin 2020-06 Yes 100mg 100 mg, Un allie (JANUVIA) 06-21 Oral, ity of tablet 100 14:00: DAILY, [place] mg 00 First dose Medical on [facility] 04/21/21 at 0900, Until Discontinu ed, Routine fluticasone 2020-06 Yes 1{spray 1 [place], Univers propionate 06-21 } Nasal, ity of 50 14:00: DAILY, [place] mcg/actuati 00 First dose Me dical on nasal on [facility] spray 1 04/21/21 at [place] 0900, Until Discontinu ed clopidogreL 2020-06 Yes 75mg 75 mg, [facility] [facility] ers (PLAVIX) 06-21 Oral, ity of tablet 75 14:00: DAILY, [place] mg 00 First dose Medical on [facility] 04/21/21 at 0900, Until Discontinu ed, Routine aspirin 2020-06 Yes 81mg 81 mg, Univers chewable 06-21 Oral, ity of tablet 81 14:00: DAILY, [place] mg 00 First dose Medical on [facility] 04/21/21 at 0900, Until Discontinu ed, Routine famotidine 2020-06 No 40mg 40 mg, [facility] [facility] ers (PEPCID AC) 06-21 Oral, ity of tablet 40 14:00: 16:01 DAILY, [place] mg 00 :42 First dose Medical on [facility] 04/21/21 at 0900, Until Discontinu ed, Routine Sliding 2020-06 Yes Subcutaneo [facility] [facility] ers Scale 1-02 us, TID ity of Insulin - 13:00: MEALS+HS, [place] as Lispro 00 First dose Medical (HumaLOG) + on [facility] Fsbg 04/21/21 at Testing 0800, Until Discontinu ed, Routine HYDROcodone 2020-06 Yes 1{tbl} 1 tablet, Univers -acetaminop 1-02 Oral, ity of hen (NORCO) 06:21: Q6HPRN, [place] as 10-325 mg 01 Starting Medica l tablet 1 on [facility] tablet 04/21/21 at 0121, Until Discontinu ed, Routine, Pain (scale 7-10) HYDROcodone 2020-06 Yes 1{tbl} 1 tablet, Univers -acetaminop 1-02 Oral, ity of hen (NORCO 06:20: Q6HPRN, [place] 5) 5-325 mg 49 Starting Medi atul tablet 1 on [facility] tablet 04/21/21 at 0120, Until Discontinu ed, Routine, Pain (scale 4-6) atorvastati 2020-06 Yes 40mg 40 mg, Univ ers n (LIPITOR) 06-21 Oral, QHS, it y of tablet 40 06:00: First dose [place] mg 00 on [facility] 04/21/21 at Branch 0100, Until Discontinu ed, Routine carvediloL 2020-06 Yes 3.125mg 3.125 mg, Univers (COREG) 06-21 Oral, BID ity of tablet 06:00: MEALS, [place] 3.125 mg 00 First dose Medic al on [facility] 04/21/21 at 0100, Until Discontinu ed, Routine
membership secretary approving Restricted medication : JEANNINE YATES nitroglycer 2020-06 Yes .4mg 0.4 mg, Uni vers in 06-21 Sublingual ity of (NITROSTAT) 05:46: , Q5MIN [place] as sublingual 19 PRN, Medical tablet 0.4 Starting Branc h mg on [facility] 04/21/21 at 0046, Until Discontinu ed, Routine, Chest pain ondansetron 2020-06 Yes 4mg 4 mg, Slow Univers (ZOFRAN 06-21 IV Push, ity of (PF)) 05:46: Q6HPRN, [place] injection 4 01 Starting Medi atul mg on [facility] 04/21/21 at 0046, Until Discontinu ed, Routine, Nausea and Vomiting (N/V) acetaminoph 2020-06 Yes 650mg 650 mg, Un allie en 06-21 Oral, ity of (TYLENOL) 05:45: Q6HPRN, [place] tablet 650 47 Starting Medic al mg on [facility] 04/21/21 at 0045, Until Discontinu ed, Routine, Pain [...] Medical UNIT/ML dose, On Branch BOLUS [facility] ORDER SET 04/20/21 at 2230, Routine aspirin 2020-06- No 162mg 162 mg, Unive rs chewable 06-21 Oral, ity of tablet 162 03:30: 03:48 ONCE, 1 [place] as mg 00 :00 dose, On Medical Mon Branch 04/20/21 at 2230, LEANNE iopamidol 2020-06- No [id number] 120mL 120 mL, Univers (ISOVUE 06-21 Intravenou ity o f 370-500 mL) 01:15: 01:15 s, ONCE, 1 [place] injection 00 :00 dose, On Medica l 120 mL Mon Branch 04/20/21 at 2015, Routine Nitrofurant Yes [id number] 100mg Take 1 Univers oin&Nit. 29 capsule by ity o f Macrocryst 00:00: mouth 2 [place] 100 mg 00 (two) Medical capsule times Branch daily with meals. Nitrofurant 2020- No [id number] 100mg Take 1 Univers oin&Nit. 10-1604 capsule by ity of Macrocryst 00:00: 00:00 [...] daily. [place] tablet 05 Medical Branch hyoscyamine 2019-0 Yes .125mg Take 0.125 Univers (LEVSIN) 8-05 mg by ity of 0.125 mg 11:13: mouth as [place] tablet 05 needed. Medical Branch atorvastati 2019-0 Yes 20mg Take 20 mg Univers n (LIPITOR) 8-05 by mouth ity of 20 mg 11:13: at [place] tablet 05 bedtime. Medical Branch telmisartan 2019-0 Yes 1{tbl} Take 1 Tab Univers -hydrochlor 8-05 by mouth ity of othiazide 11:13: daily. [place] (MICARDIS 05 Medical HCT) Branch 80-12.5 mg per tablet loratadine 2019-0 Yes 10mg Take 10 mg U nivers (CLARITIN) 8-05 by mouth ity o f 10 mg 11:13: daily. [place] tablet 05 Medical Branch lipase/prot 2020-0 Yes Take by Uni vers ease/amylas 8-05 mouth. ity of e (CREON 11:13: [place] ORAL) 05 Medical Branch fluticasone Yes Use in Univ ers propionate 8-05 each ity of (FLONASE 11:13: nostril. [place] NASAL) Medical Branch phenazopyri Yes 200mg Take 1 Uni vers dine 200 mg 8-17 tablet by ity of tablet 00:00: mouth 3 [place] 00 (three) Medical times Branch daily. phenazopyri 2020- No 200mg Take 1 Un allie dine 200 mg 8-17 11-04 tablet by it y of tablet 00:00: 00:00 mouth 3 [place] 00 :00 (three) Medical times Branch daily. amlodipine Yes TERRY 1 tab(s) Memoria 6-01 GAMAL l 00:00: acetaminoph Yes 1{tbl} Take 1 Tab Univers en-codeine 3-08 by mouth ity o f (TYLENOL 15:44: as needed. [place] as #3) 300-30 32 Medical mg tablet Branch famotidine Yes 40mg Take 1 Tab U nivers (PEPCID) 40 3-08 by mouth ity of mg tablet 00:00: daily. [place] [facility] famotidine Yes 40mg Take 1 Tab U nivers (PEPCID) 40 3-08 by mouth ity of mg tablet 00:00: daily. [place] [facility] famotidine Yes 40mg Take 1 Tab U nivers (PEPCID) 40 3-08 by mouth ity of mg tablet 00:00: daily. [place] [facility] Lipitor 2012-06 Yes TERRY 1 tab(s) Mem oria 0-24 GAMAL l 00:00: Accu-Chek Accu-Chek No Accu-Chek [facility] FastClix FastClix FastClix Fam ronit Lancing Lancing Lancing Practi c Device Device Device e Accu-Chek Accu-Chek No 1strip( Q1D Accu-Chek [place] Guide test Guide test s) Guide test Family strips Take strips Take strips Practic 1 strip 1 strip Take 1 e every day every day strip by miscell. by miscell. every day route for route for by 90 days. 90 days. miscell. route for 90 days. Alphagan P Alphagan P No Alphagan P [facility] 0.1 % eye 0.1 % eye 0.1 % eye Family drops drops drops Practic e amlodipine amlodipine No amlodipine [facility] 5 mg tablet 5 mg tablet 5 mg F amily Take 1 Take 1 tablet Practic tablet tablet Take 1 e every day every day tablet by oral by oral every day route. route. by oral route. aspirin aspirin No aspirin Vill[place] e once a day once a day once a day Family Practic e atorvastati atorvastati No atorvastat [facility] n 10 mg n 10 mg in 10 mg Famil y tablet Take tablet Take tablet Practic 1 tablet 1 tablet Take 1 e every day every day tablet by oral by oral every day route. route. by oral route. brimonidine brimonidine No brimonidin [facility] 0.2 % eye 0.2 % eye e 0.2 % [place] drops drops eye drops Practic e carvedilol carvedilol No 1 BID carvedilol [facility] 3.125 mg 3.125 mg 3.125 mg Fam ronit tablet Take tablet Take tablet Practic 1 tablet 1 tablet Take 1 e twice a day twice a day tablet by oral by oral twice a route. route. day by oral route. ciprofloxac ciprofloxac No ciprofloxa [facility] in 500 mg in 500 mg li 500 mg Family tablet tablet tablet Practic e clopidogrel clopidogrel No clopidogre [facility] 75 mg 75 mg l 75 mg Family tablet tablet tablet Practic e Creon Creon No [facility] 36,000 Family unit-114,00 unit-114,00 unit-114,0 Practic 0 0 00 e unit-180,00 unit-180,00 unit-180,0 0 unit 0 unit 00 unit capsule,del capsule,del capsule,de ayed ayed layed release release release dicyclomine dicyclomine No dicyclomin [facility] 10 mg 10 mg e 10 mg Family capsule capsule capsule Practi c e esomeprazol esomeprazol No esomeprazo [facility] e magnesium e magnesium le F amily 40 mg 40 mg magnesium Practic capsule,del capsule,del 40 mg e ayed ayed capsule,de release release layed release famotidine famotidine No 1 Q1D famotidine [facility] 40 mg 40 mg 40 mg Family tablet Take tablet Take tablet Practic 1 tablet 1 tablet Take 1 e every day every day tablet by oral by oral every day route. route. by oral route. hydro[facility]one [facility] Family mg-acetamin mg-acetamin mg-acetami Practic ophen 300 ophen 300 nophen 300 e mg tablet mg tablet mg tablet Take 1 Take 1 Take 1 tablet tablet tablet every 4 every 4 every 4 hours by hours by hours by oral route. oral route. oral route. hydrocodone hydrocodone No [facility] 5 5 e 5 Family mg-acetamin mg-acetamin mg-acetami Practic ophen 325 ophen 325 nophen 325 e mg tablet mg tablet mg tablet hydrocodone hydrocodone No [facility] 7.5 7.5 e 7.5 Family mg-acetamin mg-acetamin mg-acetami Practic ophen 325 ophen 325 nophen 325 e mg tablet mg tablet mg tablet Januvia 100 Januvia 100 No 1 Q1D Januvia [place] mg tablet mg tablet 100 mg Fam ronit Take 1 Take 1 tablet Practic tablet tablet Take 1 e every day every day tablet by oral by oral every day route for route for by oral 90 days. 90 days. route for 90 days. levofloxaci levofloxaci No levofloxac [facility] n 500 mg n 500 mg in 500 mg [place] tablet tablet tablet Practic e Lipitor 20 Lipitor 20 No 1 Q1D Lipitor 20 Village mg tablet mg tablet mg tablet Family Take 1 Take 1 Take 1 Practic tablet tablet tablet e every day every day every day by oral by oral by oral route at route at route at bedtime. bedtime. bedtime. neomycin-po neomycin-po No neomycin-p [place] lymyxin-hyd lymyxin-hyd olymyxin-h Family rocort 3.5 rocort 3.5 ydrocort Practic mg/mL-10,00 mg/mL-10,00 3.5 e 0 unit/mL-1 0 unit/mL-1 mg/mL-10,0 % ear % ear 00 solution solution unit/mL-1 % ear solution nitrofurant nitrofurant No nitrofuran [facility] oin oin toin Family monohydrate monohydrate monohydrat Practic /macrocryst /macrocryst e/macrocry e als 100 mg als 100 mg stals 100 capsule capsule mg capsule nitroglycer nitroglycer No nitroglyce [place] in 0.4 mg in 0.4 mg rin 0.4 mg Family sublingual sublingual sublingual Practic tablet tablet tablet e ondansetron ondansetron No ondansetro [place] 4 mg 4 mg n 4 mg Family disintegrat disintegrat disintegra Practic ing tablet ing tablet ting e tablet pantoprazol pantoprazol No 1 Q1D pantoprazo [place] e 40 mg e 40 mg le 40 mg Famil y tablet,davy tablet,davy tablet,del Practic yed release yed release ayed e Take 1 Take 1 release tablet tablet Take 1 every day every day tablet by oral by oral every day route. route. by oral route. telmisartan telmisartan No telmisarta [facility] 80 80 n 80 Family mg-hydrochl mg-hydrochl mg-hydroch Practic orothiazide orothiazide lorothiazi e 12.5 mg 12.5 mg de 12.5 mg tablet Take tablet Take tablet 1 tablet 1 tablet Take 1 every day every day tablet by oral by oral every day route. route. by oral route. travoprost travoprost No travoprost [place] 0.004 % eye 0.004 % eye 0.004 % Family drops drops eye drops Practic e trazodone trazodone No trazodone [facility] 50 mg 50 mg 50 mg Family tablet tablet tablet Practic e Immunizations Ordered Filled Immunization Date Status Comments [facility] e Immunization Name Name Influenza High Dose 2020-03-22 Completed Unive rsity of 00:00:00 [facility] Influenza High Dose 2020-03-22 Completed Unive rsity of 00:00:00 [facility] Influenza Virus 2019-04-18 Completed Universit y of Vaccine Recomb Quad 00:00:00 [facility] IM, Preserv and ABX Branc h Free 18-64 YRS Influenza Virus 2019-04-18 Completed Universit y of Vaccine Recomb Quad 00:00:00 [facility] IM, Preserv and ABX Branc h Free 18-64 YRS Pneumococcal 13 2012-06-20 Completed Universit y of Conjugate, PCV13 00:00:00 [facility] dical (Prevnar 13) Branch Pneumococcal 13 2012-06-20 Completed Universit y of Conjugate, PCV13 00:00:00 [facility] dical (Prevnar 13) Branch Vital Signs Vital Name Observation Time Observation Value Comments Source BP Diastolic 2021-08-04 00:00:00 84 mm[Hg] [facility] Height 2021-08-04 00:00:00 57 [in_i] [facility] BMI (Body Mass 2021-08-04 00:00:00 32 kg/m2 [facility]) Practice BP Systolic 2021-08-04 00:00:00 147 mm[Hg] [facility] Body Weight 2021-08-04 00:00:00 148 [lb_av] [facility] Systolic blood 2021-04-23 16:00:00 135 mm[Hg] [facility] Diastolic blood 2021-04-23 16:00:00 54 mm[Hg] [facility] Body temperature 2021-04-23 16:00:00 36.83 Jannette [facility] Respiratory rate 2021-04-23 16:00:00 16 /min [facility] Heart rate 2021-04-23 09:00:00 53 /min General acute hospital Oxygen saturation in 2021-04-23 09:00:00 97 /min [facility] Arterial blood by [facility] Pulse oximetry Branch Body weight 2021-04-22 10:00:00 67.994 kg General acute hospital BMI 2021-04-22 10:00:00 31.33 kg/m2 General acute hospital Body height 2021-04-21 04:40:00 147.3 cm General acute hospital Systolic (mm Hg) 2021-06-29 21:15:00 Christian rial [place] Weight 2021-06-29 21:15:00 [facility] 2021-06-29 21:15:[address] [facility] Temperature Oral (F) 2021-06-29 21:15:[address] [facility] Diastolic (mm Hg) 2021-06-29 21:15:00 Mem orial Imer Procedures Procedure Date / Time Performing Clinician Source Performed POCT GLUCOSE (AUTOMATED) 2021-04-23 14:39:00 [facility] ([facility]) 2021-04-23 12:42:00 [facility] TROPONIN I 2021-04-23 09:39:00 Moo Roth [facility] BASIC METABOLIC PANEL (NA, 2021-04-23 09:39:00 [facility] K, CL, CO2, GLUCOSE, BUN, Medica l Branch CREATININE, CA) ACTIVATED PARTIAL THRMPLAS 2021-04-23 09:39:00 [facility] PRO-BNP 2021-04-23 09:39:00 Alfredo [facility] POCT GLUCOSE (AUTOMATED) 2021-04-23 02:20:00 Blair [facility] POCT GLUCOSE (AUTOMATED) 2021-04-22 20:46:00 [facility] ACT[facility] PARTIAL THRMPLAS 2021-04-22 18:35:00 [facility] ([facility]OMATED) 2021-04-22 16:19:00 Blair [facility] POCT GLUCOSE (AUTOMATED) 2021-04-22 12:29:00 [facility] PHOSPHORUS 2021-04-22 10:29:00 Moo Roth [facility] MAGNESIUM 2021-04-22 10:29:00 Moo Roth [facility] TROPONIN I 2021-04-22 10:29:00 Moo Roth [facility] BASIC METABOLIC PANEL (NA, 2021-04-22 10:29:00 [facility] K, CL, CO2, GLUCOSE, BUN, Medica l Branch CREATININE, CA) CBC WITH DIFF 2021-04-22 10:29:00 Moo Roth [facility] ACTIVATED PARTIAL THRMPLAS 2021-04-22 10:29:00 Luis [facility] N-TERMINAL PRO-BNP 2021-04-22 10:29:00 Abdullah, [facility]SE (AUTOMATED) 2021-04-22 00:31:[address] [facility] TROPONIN I 2021-04-21 23:10:00 Jeannine Yates [facility] ACTIVATED PARTIAL THRMPLAS 2021-04-21 23:10:00 Moo Roth [facility] POCT GLUCOSE (AUTOMATED) 2021-04-21 21:52:[address] [facility] TRANSTHORACIC ECHO (TTE) 2021-04-21 17:14:00 Jeannine Yates [facility] COMPLETE W/ CONTRAST Medical [facility] HB ECG ROUTINE & RHYTHM 2021-04-21 17:05:37 Alfredo Joy [facility] POCT GLUCOSE (AUTOMATED) 2021-04-21 16:46:[address] [facility] POCT GLUCOSE (AUTOMATED) 2021-04-21 13:06:[address] [facility] TROPONIN I 2021-04-21 12:43:00 [facility] BASIC METABOLIC PANEL (NA, 2021-04-21 12:43:00 Jeannine Yates [facility] K, CL, CO2, GLUCOSE, BUN, Medica l Branch CREATININE, CA) LIPID PANEL (25367)(TOTAL 2021-04-21 12:43:00 Jeannine Yates [facility] TRIGLY[facility]ER[facility], HDL) ACTIVATED PARTIAL THRMPLAS 2021-04-21 12:40:00 Blair Crespo [facility] CBC WITH DIFF 2021-04-21 09:59:00 Jeannnie Yates [facility] TROPONIN I 2021-04-21 06:28:00 [facility] PROT[facility] / INR 2021-04-21 03:47:00 Blair Crespo [facility] ACTIVATED PARTIAL THRMPLAS 2021-04-21 03:47:00 Blair Crespo [facility] CARMENCITA Medical Branch COVID-19 (ID NOW RAPID 2021-04-21 02:19:00 Blair Crespo [facility] TESTING) Medical Branch LAB ONLY COVID 2021-04-21 02:19:00 Blair Crespo [facility] INTERPRETATION [facility] CT ABDOMEN PELVIS W 2021-04-21 01:31:04 Audie Kwon [facility] CONTRAST [facility] Branch HB ECG ROUTINE & RHYTHM 2021-04-21 00:31:26 Doyle [facility] STRIP [facility] LACTIC ACID WHOLE BLOOD 2021-04-21 00:28:00 Doyle [facility] LIPASE 2021-04-21 00:27:00 Audie Kwon [facility] TROPONIN I 2021-04-21 00:27:00 Doyle Audie [facility] THYROID STIMULATING 2021-04-21 00:27:00 [facility] Branch COMP. METABOLIC PANEL 2021-04-21 00:27:00 Audie Kwon [facility] ([id number]) [facility] CBC WITH DIFF 2021-04-21 00:27:00 Doyle [facility] GLYCOSYLATED HEMOGLOBIN 2021-04-21 00:27:00 Trudy [facility] (A1C) [facility] URINE CULTURE 2021-04-21 00:27:00 Doyle [facility] N-TERMINAL PRO-BNP 2021-04-21 00:27:00 Audie Kwon [facility] URINALYSIS 2021-04-21 00:26:00 Doyle Audie [facility] CONSENT/REFUSAL FOR 2021-04-20 20:26:52 Doctor Unassigned, [facility] DIAGNOSIS AND TREATMENT [place] [facility] Bilateral Extraction of [facility] Appendectomy [facility] Hysterectomy (Total) [facility] ronit Practice Laparoscopic [facility] Family Cholecystectomy Practice Plan of Care Planned Activity Planned Date Details Comments Source Diagnostic Test 2021-08-04 glucose, fingerstick, Deirdre mylene Family Pending 00:00:00 blood [code = Practice glucose, fingerstick, blood] Diagnostic Test 2021-08-04 hemoglobin A1C, [place] Edis patel Pending 00:00:00 fingerstick [code = Practice hemoglobin A1C, fingerstick] Encounters Start End Encounter Admission Attending Care Care Encounter Source Date/Time Date/Time Type Type Clinicians Facility Department ID 2022-08-12 Outpatient [id number] Memoria 21:44:57 [id number] [place] [id number] 2022-08-04 2022-08-04 Outpatient Daniel_T VFP VFP [id number] [address] [place] [address] 00:00:00 00:00:00 [id number] Family Practic e 2022-08-04 2022-08-04 Outpatient Daniel_T VFP VFP [id number] [address] [place] [address] 00:00:00 00:00:00 [id number] Family Practic e 2021-10-06 2021-10-06 Outpatient Daniel_T VFP VFP [id number] [address] [place] [address] 02:20:00 02:20:00 [id number] Family Practic e 2021-08-05 2021-08-05 Outpatient Daniel_T VFP VFP [id number] [address] [place] [address] 01:02:00 01:02:00 [id number] Family Practic e 2021-08-04 2021-08-04 Outpatient Daniel_T VFP VFP [id number] [address] [place] [address] 03:43:00 03:43:00 [id number] Family Practic e 2021-08-04 2021-08-04 Ernie VFP [place] - [id number] V illage 00:00:00 00:00:00 [facility] Jagdeep Medina - Daniel boland MD: [id number] GERALDO_ULI_Miki e [facility], [address], [place] [address] , Ph. 2021-08-03 2021-08-03 Outpatient Daniel_T VFP VFP [id number] [address] [place] [address] 12:11:00 12:11:00 [id number] Family Practic e 2021-07-31 2021-07-31 Outpatient Murali_T VFP VFP [id number] 3-20 Village 04:32:00 04:32:00 [id number] Family Practic e 2021-06-29 2021-06-29 Outpatient [facility] [id number] Memoria 15:15:00 15:15:00 CARDIAC CARDIAC l CLINIC PA CLINIC PA Herm felicita 2021-06-18 2021-06-18 Outpatient [facility] [id number] Memoria 16:54:00 16:54:00 CARDIAC CARDIAC l CLINIC PA CLINIC PA Herm felicita 2021-06-18 2021-06-18 Outpatient R [facility] [id number] Univers 15:30:00 15:30:00 ity of [facility] 2021-06-03 2021-06-03 Outpatient [facility] [id number] Memoria 15:20:00 15:20:00 CARDIAC CARDIAC l CLINIC PA CLINIC PA Herm felicita 2021-04-24 2021-04-24 Transition DAIANA Dawson [id number] Univers 00:00:00 00:00:00 of Care Osito CEDENO [id number] ity [place] [id number] [place] [facility] 403 Branch 2021-04-20 2021-04-23 [facility] Audie Kwon [facility] [id number] Univers 15:48:00 13:29:00 Encounter Blair Crespo 350.1.13.1 0 ity of Jeannine Yates 4.2.7.2.686 [facility] [id number] [place] [facility] 080 Branch 2021-04-20 2021-04-23 Inpatient X TRUDY [facility] [id number] Univers 15:48:00 13:29:00 JEANNINE ity of [facility] 2021-04-20 2021-04-20 Orders Doctor TAYLOR [id number] Univers 00:00:00 00:00:00 Only Unassigned, NORAH 350.1.13.10 ity of [place] [facility] 4.2.7.2.686 Rickey as [id number] [place] [facility] 009 Branch 2020-09-11 2020-09-11 Outpatient R [facility] [id number] Univers 14:30:00 14:30:00 albino [facility] 2020-09-10 2020-09-10 Outpatient R LASHON, [facility] [id number] Univers 09:00:00 09:00:00 JOHNNA posada [facility] 2020-05-29 2020-05-29 [facility] [id number] Univers 14:30:00 14:30:00 JOHNNA posada [facility] 2020-04-24 2020-04-24 Outpatient Daniel_T VFP VFP [id number] 3-20 Village 05:20:00 05:20:00 Family Practic e 2020-02-27 2020-02-27 [facility] [id number] Univers 14:00:00 14:00:00 JOHNNA posada [facility] 2020-02-22 2020-02-22 [facility] [id number] Univers 15:00:00 15:00:00 JOHNNA posada [facility] 2020-02-13 2020-02-13 [facility] [id number] Univers 14:30:00 14:30:00 JOHNNA jesús [facility] 2020-02-07 2020-02-07 [facility] [id number] Univers 14:15:00 14:15:00 JOHNNA posada [facility] 2020-02-04 2020-02-04 [facility] [id number] Univers 00:00:00 00:00:00 JOHNNA posada [facility] 2020-01-23 2020-01-23 [facility] [id number] Univers 09:30:00 09:30:00 JOHNNA jesús [facility] 2019-06-24 2019-06-24 Emergency X DREVER, [facility] ERT [id number] Univers 15:41:03 18:10:00 HASMUKH jesús [facility] Results Test Description Test Time Test Comments Results Result Comments Source Hemoglobin A1c measurement device panel 2021-08-04 13:40:07 Test Item Value Reference Range Interpretation Comme nts Hemoglobin A1C Fingerstick: (test code = Hemoglobin A1C Fingerstick :) 5.8 [facility] in Capillary [id number] 13:36:02 Test Item Value Reference Range Interpretation Comments Blood Glucose: mg/dl (test code = Blood 129 Glucose: mg/dl) [facility] GLUCOSE (AUTOMATED)2021-04-23 14:44:20 Test Item Value Reference Range Interpretation Comments POCT GLU (test code = 5252073063) 123 mg/dL 70-110 H Lab Interpretation (test code = Abnormal 09285-1) [facility] GLUCOSE (AUTOMATED)2021-04-23 12:52:39 Test Item Value Reference Range Interpretation Comments POCT GLU (test code = 1733149123) 96 mg/dL 70-110 Lab Interpretation (test code = Normal 34234-9) [facility] METABOLIC PANEL (NA, K, CL, CO2, GLUCOSE, BUN, CREATININE, CA)2021-04-23 11:55:54 Test Item Value Reference Range Interpretation Comments NA (test code = 131 mmol/L 135-145 L 0411974900) K (test code = 4.1 mmol/L 3.5-5.0 0246969411) CL (test code = 98 mmol/L 98-108 7748559123) CO2 TOTAL (test code = 27 mmol/L 23-31 8711209166) AGAP (test code = 2-16 8174920295) BUN (test code = 23 mg/dL 7-23 0503010952) GLUCOSE (test code = 106 mg/dL 70-110 7751818793) CREATININE (test code = 0.87 mg/dL 0.50-1.04 9297976416) CALCIUM (test code = 9.1 mg/dL 8.6-10.6 7026799508) eGFR (test code = mL/min/1.73m2 4499754056) PRAVIN (test code = PRAVIN) Association of [...] tests). Lab Interpretation Abnormal (test code = 41402-4) [facility] [id number] 11:50:34 Test Item Value Reference Interpretation Comments Range TROPONIN I (test 0.250 ng/mL See_Comment H [Automated code = 4834605285) message] The system which generated this result [...] biotin. Lab Interpretation Abnormal (test code = 74410-5) [facility] [id number] 11:47:51 Test Item Value Reference Range Interpretation Comments NT-proBNP (test code 127 pg/mL See_Comment [Autom ated = 2843997037) message] The system which generated this result transmitted reference range : <=450. The reference range was not used to interpret this result as normal/abnormal . PRAVIN (test code = PRAVIN) Biotin has been reported to cause a negative bias, interpret results relative to patient's use of biotin. Lab Interpretation Normal (test code = 95056-2) [facility] PARTIAL THRMPLAS [id number] 11:19:04 Test Item Value Reference Range Interpretation Comments APTT Patient (test See_Comment H [Automat ed code = 3173-2) message] The system which generated this result transmitted reference range : 23 - 38 Seconds . The reference range was not used to interpr et this result as normal/abnormal . PRAVIN (test code = PRAVIN) The [facility] patient population mean normal value for aPTT is 30 seconds. Lab Interpretation Abnormal (test code = 06189-2) [facility] GLUCOSE (AUTOMATED)2021-04-23 11:07:15 Test Item Value Reference Range Interpretation Comments POCT GLU (test code = 5589883413) 109 mg/dL 70-110 Lab Interpretation (test code = Normal 32509-2) [facility] GLUCOSE (AUTOMATED)2021-04-23 11:07:14 Test Item Value Reference Range Interpretation Comments POCT GLU (test code = 3089973572) 116 mg/dL 70-110 H Lab Interpretation (test code = Abnormal 95446-9) [facility] GLUCOSE (AUTOMATED)2021-04-23 11:07:09 Test Item Value Reference Range Interpretation Comments POCT GLU (test code = 6592085945) 150 mg/dL 70-110 H Lab Interpretation (test code = Abnormal 62821-5) [facility] GLUCOSE (AUTOMATED)2021-04-23 02:28:35 Test Item Value Reference Range Interpretation Comments POCT GLU (test code = 7406814768) 151 mg/dL 70-110 H Lab Interpretation (test code = Abnormal 59366-1) [facility] PARTIAL THRMPLAS [id number] 19:59:38 Test Item Value Reference Range Interpretation Comments APTT Patient (test See_Comment H [Automat ed code = 3173-2) message] The system which generated this result transmitted reference range : 23 - 38 Seconds . The reference range was not used to interpr et this result as normal/abnormal . PRAVIN (test code = PRAVIN) The [facility] patient population mean normal value for aPTT is 30 seconds. Lab Interpretation Abnormal (test code = 84001-1) [facility] PARTIAL THRMPLAS [id number] 11:53:11 Test Item Value Reference Range Interpretation Comments APTT Patient (test See_Comment H [Automat ed code = 3173-2) message] The system which generated this result transmitted reference range : 23 - 38 Seconds . The reference range was not used to interpr et this result as normal/abnormal . PRAVIN (test code = PRAVIN) The [facility] patient population mean normal value for aPTT is 30 seconds. Lab Interpretation Abnormal (test code = 75768-4) [facility] [id number] 11:33:04 Test Item Value Reference Interpretation Comments Range TROPONIN I (test 0.378 ng/mL See_Comment H [Automated code = 7020803131) message] The system which generated this result [...] biotin. Lab Interpretation Abnormal (test code = 74133-5) [facility] [id number] 11:30:06 Test Item Value Reference Range Interpretation Comments NT-proBNP (test code 100 pg/mL See_Comment [Autom ated = 0322385580) message] The system which generated this result transmitted reference range : <=450. The reference range was not used to interpret this result as normal/abnormal . PRAVIN (test code = PRAVIN) Biotin has been reported to cause a negative bias, interpret results relative to patient's use of biotin. Lab Interpretation Normal (test code = 58321-9) [facility] METABOLIC PANEL (NA, K, CL, CO2, GLUCOSE, BUN, CREATININE, CA)2021-04-22 11:22:23 Test Item Value Reference Range Interpretation Comments NA (test code = 130 mmol/L 135-145 L 1211907226) K (test code = 4.0 mmol/L 3.5-5.0 3139245211) CL (test code = 99 mmol/L 98-108 1320847830) CO2 TOTAL (test code = 24 mmol/L 23-31 2119572042) AGAP (test code = 2-16 9210397977) BUN (test code = 21 mg/dL 7-23 4868667158) GLUCOSE (test code = 111 mg/dL 70-110 H 4539625244) CREATININE (test code = 0.99 mg/dL 0.50-1.04 7417654470) CALCIUM (test code = 9.2 mg/dL 8.6-10.6 9611489089) eGFR (test code = mL/min/1.73m2 6864064906) PRAVIN (test code = PRAVIN) Association of [...] tests). Lab Interpretation Abnormal (test code = 10990-4) [facility]2021-11-03 11:22:23 Test Item Value Reference Range Interpretation Comments MAGNESIUM (test code = 5682187418) 2.2 mg/dL 1.7-2.4 Lab Interpretation (test code = Normal 26217-4) [facility]2021-11-03 11:22:03 Test Item Value Reference Range Interpretation Comments PHOSPHORUS (test code = 4514524060) 3.6 mg/dL 2.5-5.0 Lab Interpretation (test code = Normal 54622-9) [facility] WITH [id number] 10:48:03 Test Item Value Reference Range Interpretation [...] RDW-SD (test code = 41.1 fL 39.0-49.9 67513-9) RDW-CV (test code = 12.8 % 12.0-15.5 788-0) PLT (test code = See_Comment [Automated 777-3) message] The sy stem which generated this result transmitted reference range : 166 - 358 10*3/ ?L. The reference r violeta was not used to interpret this result as normal/abnormal . MPV (test code = 9.9 fL 9.5-12.9 08755-0) NRBC/100 WBC (test See_Comment [Automat ed code = 0477760656) message] The system which generated this result transmitted reference range : 0.0 - 10.0 /100 WBCs. The refer ence range was not u sed to interpret th is result as normal/abnormal . NRBC x10^3 (test code <0.01 See_Comment [Auto mated = 2368932802) message] The s ystem which generated this result transmitted reference range : 10*3/?L. The reference range was not used to interpret this result as normal/abnormal . GRAN MAT (NEUT) % 65.4 % (test code = 770-8) IMM GRAN % (test code 0.50 % = 4067744568) LYMPH % (test code = 24.0 % 736-9) MONO % (test code = 8.2 % 5905-5) EOS % (test code = 1.3 % 713-8) BASO % (test code = 0.6 % 706-2) GRAN MAT x10^3(ANC) 6.13 10*3/uL 1.88-7.09 (test code = 4098374951) IMM GRAN x10^3 (test 0.05 10*3/uL 0.00-0.06 code = 1975233321) LYMPH x10^3 (test code 2.25 10*3/uL 1.32-3.29 = 731-0) MONO x10^3 (test code 0.77 10*3/uL 0.33-0.92 = 742-7) EOS x10^3 (test code = 0.12 10*3/uL 0.03-0.39 711-2) BASO x10^3 (test code 0.06 10*3/uL 0.01-0.07 = 704-7) Lab Interpretation Abnormal (test code = 26804-7) [facility] [id number] 00:38:49 Test Item Value Reference Interpretation Comments Range TROPONIN I (test 0.430 ng/mL See_Comment H [Automated code = 8301183300) message] The system which generated this result [...] biotin. Lab Interpretation Abnormal (test code = 16529-6) [facility] GLUCOSE (AUTOMATED)2021-04-22 00:33:45 Test Item Value Reference Range Interpretation Comments POCT GLU (test code = 9758924043) 152 mg/dL 70-110 H Lab Interpretation (test code = Abnormal 74138-1) [facility] PART[facility] THRMPLAS [id number] 23:55:41 Test Item Value Reference Range Interpretation Comments APTT Patient (test See_Comment H [Automat ed code = 3173-2) message] The system which generated this result transmitted reference range : 23 - 38 Seconds . The reference range was not used to interpr et this result as normal/abnormal . PRAVIN (test code = PRAVIN) The [facility] patient population mean normal value for aPTT is 30 seconds. Lab Interpretation Abnormal (test code = 63362-1) [facility] GLUCOSE (AUTOMATED)2021-04-21 22:04:44 Test Item Value Reference Range Interpretation Comments POCT GLU (test code = 1749341321) 136 mg/dL 70-110 H Lab Interpretation (test code = Abnormal 50453-2) [facility] GLUCOSE (AUTOMATED)2021-04-21 16:51:59 Test Item Value Reference Range Interpretation Comments POCT GLU (test code = 7874885376) 122 mg/dL 70-110 H Lab Interpretation (test code = Abnormal 57776-4) [facility] [id number] 14:37:23 Test Item Value Reference Interpretation Comments Range TROPONIN I (test 0.501 ng/mL See_Comment H [Automated code = 0497393153) message] The system which generated this result [...] biotin. Lab Interpretation Abnormal (test code = 28999-8) [facility] Hospital[facility] (Total Cholesterol, Triglycerides, HDL)2021-04-21 14:25:42 Test Item Value Reference Range Interpretation Comments CHOL (test code = 148 mg/dL 120-200 1771669084) HDL (test code = 39 mg/dL >50 L 3241079076) HDLC RATIO (test code = See_Comment [Au tomated message] 0774657974) The system [employer] [place] generated this result transmit murali reference range : <=4.5. The refe rence range was not u sed to interpret th is result as normal/abnormal . TRIG (test code = 121 mg/dL 30-170 7056455446) LDL CHOL (test code = 85 mg/dL See_Comment [Auto mated message] 12985-1) The system [employer] [place] generated this result transmit murali reference range : <=160. The refe rence range was not u sed to interpret th is result as normal/abnormal . VLDL (test code = 24 mg/dL 5-60 8206807451) Lab Interpretation (test Abnormal code = 49586-8) [facility] METABOLIC PANEL (NA, K, CL, CO2, GLUCOSE, BUN, CREATININE, CA)2021-04-21 14:25:22 Test Item Value Reference Range Interpretation Comments NA (test code = 130 mmol/L 135-145 L 0185409023) K (test code = 3.8 mmol/L 3.5-5.0 6482255872) CL (test code = 98 mmol/L 98-108 1059860200) CO2 TOTAL (test code = 26 mmol/L 23-31 6364913634) AGAP (test code = 2-16 2582811579) BUN (test code = 21 mg/dL 7-23 7865506903) GLUCOSE (test code = 102 mg/dL 70-110 4396633168) CREATININE (test code = 0.88 mg/dL 0.50-1.04 1667474322) CALCIUM (test code = 9.3 mg/dL 8.6-10.6 8184037017) eGFR (test code = mL/min/1.73m2 3348215905) PRAVIN (test code = PRAVIN) Association of [...] tests). Lab Interpretation Abnormal (test code = 67754-1) [facility] use with Heparin Drip)2021-04-21 13:52:42 Test Item Value Reference Range Interpretation Comments APTT Patient (test >150 See_Comment HH [Automat ed code = 3173-2) message] The system which generated this result transmitted reference range : 23 - 38 Seconds . The reference range was not used to interpr et this result as normal/abnormal . PRAVIN (test code = PRAVIN) The [facility] patient population mean normal value for aPTT is 30 seconds. Lab Interpretation Abnormal (test code = 85013-8) [facility] (AUTOMATED)2021-04-21 13:09:57 Test Item Value Reference Range Interpretation Comments POCT GLU (test code = 5788079352) 100 mg/dL 70-110 Lab Interpretation (test code = Normal 37843-5) [facility] WITH [id number] 10:49:20 Test Item Value Reference Range Interpretation Comments WBC (test code = See_Comment [Automated 4690-2) message] The sy stem which generated this result transmitted reference range : 4.30 - 11.10 10*3/?L. The reference range was not used to interpret this result as normal/abnormal . RBC (test code = See_Comment [Automated 039-8) message] The sy stem which generated this [...] RDW-SD (test code = 40.7 fL 39.0-49.9 56107-8) RDW-CV (test code = 12.7 % 12.0-15.5 788-0) PLT (test code = See_Comment [Automated 777-3) message] The sy stem which generated this result transmitted reference range : 166 - 358 10*3/ ?L. The reference r violeta was not used to interpret this result as normal/abnormal . MPV (test code = 10.6 fL 9.5-12.9 60252-0) NRBC/100 WBC (test See_Comment [Automat ed code = 1649756183) message] The system which generated this result transmitted reference range : 0.0 - 10.0 /100 WBCs. The refer ence range was not u sed to interpret th is result as normal/abnormal . NRBC x10^3 (test code <0.01 See_Comment [Auto mated = 9523890670) message] The s ystem which generated this result transmitted reference range : 10*3/?L. The reference range was not used to interpret this result as normal/abnormal . GRAN MAT (NEUT) % 65.1 % (test code = 770-8) IMM GRAN % (test code 0.50 % = 6441219888) LYMPH % (test code = 24.9 % 736-9) MONO % (test code = 7.8 % 5905-5) EOS % (test code = 1.2 % 713-8) BASO % (test code = 0.5 % 706-2) GRAN MAT x10^3(ANC) 5.91 10*3/uL 1.88-7.09 (test code = 9023060591) IMM GRAN x10^3 (test 0.05 10*3/uL 0.00-0.06 code = 7116142911) LYMPH x10^3 (test code 2.27 10*3/uL 1.32-3.29 = 731-0) MONO x10^3 (test code 0.71 10*3/uL 0.33-0.92 = 742-7) EOS x10^3 (test code = 0.11 10*3/uL 0.03-0.39 711-2) BASO x10^3 (test code 0.05 10*3/uL 0.01-0.07 = 704-7) Lab Interpretation Abnormal (test code = 75577-4) [facility]Trop[facility] [id number] 08:37:42 Test Item Value Reference Interpretation Comments Range TROPONIN I (test 0.498 ng/mL See_Comment H [Automated code = 7425276085) message] The system which generated this result [...] biotin. Lab Interpretation Abnormal (test code = 87346-8) [facility] HospitalThyroid Stimulating Hormone (TSH)2021-04-21 06:38:09 Test Item Value Reference Range Interpretation Comments TSH (test code = See_Comment [Automated message] 1125419430) The system [employer] [place] generated this result transmitted ref erence range: 0.45 - 4 .70 mIU/L. The refe rence range was not u sed to interpret this result as normal/abnor mal. Lab Interpretation (test Normal code = 13719-6) [facility] HospitalGlycosylated Hemoglobin (A1C)2021-04-21 06:18:43 Test Item Value Reference Range Interpretation Comments HGB A1C (test code = 6.1 % 4.0-5.7 H 4548-4) PRAVIN (test code = PRAVIN) Reference RangesNormal: <5.7%Prediabetes: 5.7 - 6.4%Diabetes: > 6.5% Lab Interpretation (test Abnormal code = 79786-1) [facility]2021-[facility]-02 04:07:54 Test Item Value Reference Range Interpretation Comments APTT Patient (test See_Comment [Automat ed code = 3173-2) message] The system which generated this result transmitted reference range : 23 - 38 Seconds . The reference range was not used to interpr et this result as normal/abnormal . PRAVIN (test code = PRAVIN) The [facility] patient population mean normal value for aPTT is 30 seconds. Lab Interpretation Normal (test code = 18207-5) [facility] HospitalProthrombin Time (PT) / [id number] 04:05:53 Test Item Value Reference Range Interpretation [...] tions. Lab Interpretation (test Normal code = 51349-3) [facility] HospitalTROPONIN [id number] 01:16:59 Test Item Value Reference Interpretation Comments Range TROPONIN I (test 0.611 ng/mL See_Comment H [Automated code = 3468059807) message] The system which generated this result [...] biotin. Lab Interpretation Abnormal (test code = 02600-3) [facility] HospitalN-TERMINAL [id number] 01:13:55 Test Item Value Reference Range Interpretation Comments NT-proBNP (test code 248 pg/mL See_Comment [Autom ated = 9820085199) message] The system which generated this result transmitted reference range : <=450. The reference range was not used to interpret this result as normal/abnormal . PRAVIN (test code = PRAVIN) Biotin has been reported to cause a negative bias, interpret results relative to patient's use of biotin. Lab Interpretation Normal (test code = 83135-0) [facility]. METABOLIC PANEL (76077)2021-04-21 01:04:56 Test Item Value Reference Range Interpretation Comments NA (test code = 129 mmol/L 135-145 L 1234877111) K (test code = 4.3 mmol/L 3.5-5.0 8766761820) CL (test code = 95 mmol/L 98-108 L 4008031423) CO2 TOTAL (test code = 25 mmol/L 23-31 4685909916) AGAP (test code = 2-16 9419180073) BUN (test code = 24 mg/dL 7-23 H 4251034806) GLUCOSE (test code = 109 mg/dL 70-110 5045836206) CREATININE (test code = 0.92 mg/dL 0.50-1.04 6170743949) TOTAL BILI (test code = 0.7 mg/dL 0.1-1.1 8196408553) CALCIUM (test code = 9.7 mg/dL 8.6-10.6 0983998693) T PROTEIN (test code = 8.1 g/dL 6.3-8.2 3523367868) ALBUMIN (test code = 4.6 g/dL 3.5-5.0 6962947486) ALK PHOS (test code = 96 U/L 34-122 6536750825) ALTv (test code = 19 U/L 5-35 1742-6) AST(SGOT) (test code = 33 U/L 13-40 1842163900) eGFR (test code = mL/min/1.73m2 3602583135) PRAVIN (test code = PRAVIN) Association of [...] tests). Lab Interpretation Abnormal (test code = 51642-3) [facility] HospitalLIPASE2021-11-02 01:04:35 Test Item Value Reference Range Interpretation Comments LIPASE (test code = 6134952569) 130 U/L 0-220 Lab Interpretation (test code = Normal 50413-0) [facility] WITH [id number] 00:44:32 Test Item Value Reference Range Interpretation Comments WBC (test code = See_Comment [Automated message] 6690-2) The system [employer] [place] generated this result transmitted ref erence range: 4.30 - 1 1.10 10*3/?L. The re ference range was not u sed to interpret this result as normal/abnor mal. RBC (test code = See_Comment [Automated message] 789-8) The system [employer] [place] generated this result transmitted ref erence range: [...] RDW-SD (test code 40.6 fL 39.0-49.9 = 11547-5) RDW-CV (test code 12.5 % 12.0-15.5 = 788-0) PLT (test code = See_Comment [Automated message] 777-3) The system whic h generated this result transmitted ref erence range: 166 - 35 8 10*3/?L. The re ference range was not u sed to interpret this result as normal/abnor mal. MPV (test code = 9.5 fL 9.5-12.9 76510-1) NRBC/100 WBC (test See_Comment [Automat ed message] code = 5540255497) The syste m which generated this result transmitted ref erence range: 0.0 - 10 .0 /100 WBCs. The refer ence range was not u sed to interpret this result as normal/abnor mal. NRBC x10^3 (test <0.01 See_Comment [Automated message] code = 7476249080) The syste m which generated this result transmitted ref erence range: 10*3/?L. The reference range was not used to interpr et this result as normal/abnormal . GRAN MAT (NEUT) % 67.2 % (test code = 770-8) IMM GRAN % (test 0.60 % code = 5649622804) LYMPH % (test code 23.6 % = 736-9) MONO % (test code 7.4 % = 5905-5) EOS % (test code = 0.8 % 713-8) BASO % (test code 0.4 % = 706-2) GRAN MAT 6.95 10*3/uL 1.88-7.09 x10^3(ANC) (test code = 3098796518) IMM GRAN x10^3 0.06 10*3/uL 0.00-0.06 (test code = 2576322165) LYMPH x10^3 (test 2.44 10*3/uL 1.32-3.29 code = 731-0) MONO x10^3 (test 0.76 10*3/uL 0.33-0.92 code = 742-7) EOS x10^3 (test 0.08 10*3/uL 0.03-0.39 code = 711-2) BASO x10^3 (test 0.04 10*3/uL 0.01-0.07 code = 704-7) [facility]"
[2022-08-12] MEDS ORDERED: NA CHLORIDE 0.9% 500 ML ONE (22:01)
[2022-08-12 22:19] LABS: Absolute Lymphocytes (CBC) 1.5 K/uL (0.7-4.9); Hematocrit 29.9 % (36.0-45.0); Lymphocytes % 29.6 % (15.3-44.8); MCV 87.5 fL (80-100); RBC Red Blood Cell Count 3.41 M/uL (3.86-4.86)
[2022-08-12 22:33] LABS: Protime INR 1.03
--- NOTE | 2022-08-12 22:37 | RAD REPORT ---
EXAM DESCRIPTION: CT - Head Brain Wo Cont - 08/12/2022 10:21 pm CLINICAL HISTORY: SYNCOPE COMPARISON: <Comparisons> TECHNIQUE: All CT scans are performed using dose optimization technique as appropriate and may inclu de automated exposure control or mA/KV adjustment according to patient size. FINDINGS: No intracranial hemorrhage, hydrocephalus or extra-axial fluid collection.No areas of brai n edema or evidence of midline shift. The paranasal sinuses and mastoids are clear. The calvarium is intact. IMPRESSION: No acute intracranial abnormality.
[2022-08-12 22:40] LABS: Bilirubin Direct 0.1 mg/dL (0-0.2); Bilirubin Total 0.2 mg/dL (0.2-1.0); Magnesium 1.9 mg/dL (1.6-2.4); Potassium 3.4 mmol/L (3.5-5.1); Troponin High Sensitivity 50.7 pg/mL (<58.9)
[2022-08-12 22:51] LABS: SARS-COV-2 RT PCR NEGATIVE (NEGATIVE)
--- NOTE | 2022-08-12 23:50 | EDPHYS ---
Physician Documentation [facility] Name: Radha Laguna Age: 87 yrs Sex: Female : 1935 Arrival Date: 08/12/2022 Time: 21:42 Bed 6 Private MD: ED Physician Gamaliel Blackmon HPI: 08/12 22:16 This 87 yrs old Female presents to ER via EMS with complaints of syncope. rn 22:16 The patient has experienced syncope. Onset: The symptoms/episode began/occurred just rn prior to arrival. Duration: This was a single episode. Context: the episode(s) was witnessed, by family, occurred at home, occurred while the patient was at rest. Associated injury: The patient did not suffer any apparent associated injury. Associated signs and symptoms: Pertinent positives: weakness, Pertinent negatives: abdominal pain, chest pain, confusion, headache. Current symptoms: Currently, the patient is not experiencing any symptoms. The patient has not experienced similar symptoms in the past. The patient has not recently seen a physician. Pt reports a few days of feeling weak, cough, congestion, no appetite. No fever. No sob. No chest pain or abd pain. No vomiting/diarrhea. EMS reports had single syncopal episode at home prior to arrival, witnessed, no seizure, in seated position. . Historical: - Allergies: 21:48 does not like morphine; as6 21:48 Morphine; as6 - PMHx: 21:48 Diabetes - NIDDM; diabetes mellitus; Hypertension; as6 - Immunization history:: Adult Immunizations up to date. - Social history:: Smoking status: Patient denies any tobacco usage or history of. - Family history:: not pertinent. - Hospitalizations: : No recent hospitalization is reported. ROS: 22:16 Constitutional: Negative for fever, chills, and weight loss, Eyes: Negative for injury, rn pain, redness, and discharge, Neck: Negative for injury, pain, and swelling, Cardiovascular: Negative for chest pain, palpitations, and edema, Respiratory: + cough Abdomen/GI: Negative for abdominal pain, nausea, vomiting, diarrhea, and constipation, MS/Extremity: Negative for injury and deformity, Skin: Negative for injury, rash, and discoloration, Neuro: Negative for numbness, tingling, and seizure. Exam: 22:16 Constitutional: This is a well developed, well nourished patient who is awake, alert, rn and in no acute distress. Head/Face: Normocephalic, atraumatic. ENT: dry MM Cardiovascular: Bradycardic, regular. No pulse deficits. Respiratory: No increased work of breathing, no retractions or nasal flaring. Abdomen/GI: Soft, non-tender Skin: Warm, dry MS/ Extremity: Pulses equal, no cyanosis. Neuro: Awake and alert, GCS 15 Vital Signs: 21:47 BP 104 / 55; Pulse 44; Resp 13 S; Temp 97.5(O); Pulse Ox 98% on R/A; Weight 68.04 kg as6 (R); Pain 0/10; 22:30 BP 120 / 47; Pulse 52; Resp 21 S; Pulse Ox 100% on R/A; as6 23:37 BP 108 / 49; Pulse 52; Resp 12 S; Pulse Ox 100% on R/A; as6 MDM: 21:43 Patient medically screened. rn 22:53 ED course: Pt took carvedilol prior to coming in . rn 23:44 Differential Diagnosis: cardiac arrhythmia, cerebrovascular accident, emotional rn response, idiopathic syncope, transient ischemic attack, vasovagal episode, medication side effect, dehydration, viral syndrome, COVID, Flu. Data reviewed: vital signs, nurses notes, lab test result(s), EKG, radiologic studies, CT scan, and as a result, I will discharge patient. Consideration of Admission/Observation Escalation of care including admission/observation considered. Independent interpretation of the following test(s) in the Emergency Department EKG: See my EKG interpretation above X-Ray: My interpretation is CXR images neg for pneumothorax or pneumonia. Counseling: I had a detailed discussion with the patient and/or guardian regarding: the historical points, exam findings, and any diagnostic results supporting the discharge/admit diagnosis, lab results, radiology results, the need for further work-up and treatment in the hospital. Response to treatment: the patient's symptoms have markedly improved after treatment, and as a result, I will admit patient. ED course: Pt with syncope, no acute findings in w/u in ED, spoke with patient and family, recommended admission for further w/u, they decline. Patient does not want to be admitted. Daughter states this has happened before, blamed on pt sneaking hydrocodone, told to stop taking, but she just told daughter she is taking her hydrocodone again without them knowing. Daughter attributes todays events to patient taking hydrocodone and is ok with her mother's decision to go home and decline admission. They understand risks. . 08/12 21:43 Order name: Basic Metabolic Panel rn 08/12 21:43 Order name: CBC with Diff rn 08/12 21:43 Order name: Hepatic Function rn 08/12 21:43 Order name: Magnesium rn 08/12 21:43 Order name: Protime (+inr) rn 08/12 21:43 Order name: Ptt, Activated rn 08/12 21:43 Order name: Troponin High Sensitivity rn 08/12 21:43 Order name: COVID-19/FLU A+B rn 08/12 21:43 Order name: BNP rn 08/12 21:43 Order name: Blood Culture Adult (2) rn 08/12 21:43 Order name: Lactate w/ 2H reflex if indic. rn 08/12 22:20 Order name: CBC with Automated Diff; Complete Time: 23:31 EDMS 08/12 22:33 Order name: Protime (+INR); Complete Time: 23:31 EDMS 08/12 22:33 Order name: PTT, Activated Partial Thromb; Complete Time: 23:31 EDMS 08/12 21:43 Order name: CT Head Brain wo Cont rn 08/12 21:43 Order name: Chest Single View XRAY rn 08/12 21:43 Order name: EKG; Complete Time: 21:45 rn 08/12 21:43 Order name: Cardiac monitoring; Complete Time: 21:52 rn 08/12 21:43 Order name: EKG - Nurse/Tech; Complete Time: 22:52 rn 08/12 21:43 Order name: IV Saline Lock; Complete Time: 21:54 rn 08/12 22:35 Order name: Lactate w/ 2H reflex if indic.; Complete Time: 23:31 EDMS 08/12 22:37 Order name: CT; Complete Time: 23:31 EDMS 08/12 22:41 Order name: Basic Metabolic Panel; Complete Time: 23:31 EDMS 08/12 22:41 Order name: Liver (Hepatic) Function; Complete Time: 23:31 EDMS 08/12 22:41 Order name: Troponin High Sensitivity; Complete Time: 23:31 EDMS 08/12 22:41 Order name: NT PRO-BNP; Complete Time: 23: [facility] 08/12 22:41 Order name: Magnesium; Complete Time: 23: [facility] 08/12 22:51 Order name: COVID-19/FLU A+B; Complete Time: : [facility] 08/13 00:10 Order name: Urine Dipstick-Ancillary [facility] 08/12 21:43 Order name: Labs collected and sent; Complete Time: 22:11 rn 08/12 21:43 Order name: O2 Per Protocol; Complete Time: 21:52 rn 08/12 21:43 Order name: O2 Sat Monitoring; Complete Time: 21:52 rn 08/12 21:43 Order name: Urine Dipstick-Ancillary (obtain specimen); Complete Time: 00:09 rn Administered Medications: 22:11 Drug: NS 0.9% 500 ml Route: IV; Rate: bolus; Site: left antecubital; as6 08/13 00:20 Follow up: Response: No adverse reaction; IV Status: Completed infusion; IV Intake: as6 500ml Disposition Summary: 08/12/22 23:50 Discharge Ordered Location: Home rn Problem: new rn Symptoms: have improved rn Condition: Stable rn Diagnosis - Syncope rn - Muscle weakness (generalized) rn - Adverse effect of other drugs, medicaments and biological substances, initial rn encounter - UTI/ Urinary tract infection, site not specified rn Followup: rn - With: Private Physician - When: As needed - Reason: Recheck today's complaints, Re-evaluation by your physician Discharge Instructions: - Discharge Summary Sheet rn - Syncope rn - Weakness rn - Urinary Tract Infection, Adult, [id number] rn Forms: - Medication Reconciliation Form rn - Thank You Letter rn - Antibiotic social media intern - Prescription Opioid Use rn Prescriptions: - Cephalexin 500 mg Oral Capsule - take 1 capsule by ORAL route every 12 hours for 10 days; 20 capsule; Refills: rn 0, Product Selection Permitted Signatures: Dispatcher [employer] Gamaliel Graham MD MD rn Slawson, Ashby, RN RN as6
--- NOTE | 2022-08-12 23:50 | ER ---
Nurse's Notes [facility] Name: Radha Laguna Age: 87 yrs Sex: Female : 1935 Arrival Date: 08/12/2022 Time: 21:42 Bed 6 Private MD: Diagnosis: Syncope;Muscle weakness (generalized);Adverse effect of other drugs, medicaments and biological substances, initial encounter;UTI/ Urinary tract infection, site not specified Presentation: 08/12 21:47 Chief complaint: EMS states: called out for syncopal episode, pt reports fatigue and as6 nausea. Coronavirus screen: At this time, the client does not indicate any symptoms associated with coronavirus-19. Ebola Screen: No symptoms or risks identified at this time. Initial Sepsis Screen: Does the patient meet any 2 criteria? No. Patient's initial sepsis screen is negative. Does the patient have a suspected source of infection? No. Patient's initial sepsis screen is negative. Risk Assessment: Do you want to hurt yourself or someone else? Patient reports no desire to harm self or others. Onset of symptoms was August 12, 2022. 21:47 Method Of Arrival: EMS: [facility] as6 21:47 Acuity: JULIET 2 as6 Historical: - Allergies: 21:48 does not like morphine; as6 21:48 Morphine; as6 - PMHx: 21:48 Diabetes - NIDDM; diabetes mellitus; Hypertension; as6 - Immunization history:: Adult Immunizations up to date. - Social history:: Smoking status: Patient denies any tobacco usage or history of. - Family history:: not pertinent. - Hospitalizations: : No recent hospitalization is reported. Screenin/24 00:20 [facility] ED Fall Risk Assessment (Adult) Score/Fall Risk Level 0 - 2 = Low Risk. Abuse as6 screen: Denies threats or abuse. Denies injuries from another. Nutritional screening: No deficits noted. Tuberculosis screening: No symptoms or risk factors identified. Assessment: 08/12 21:50 General: Appears in no apparent distress. Behavior is calm, cooperative. General: as6 Reports fatigue for. Pain: Denies pain. Neuro: Level of Consciousness is awake, alert, obeys commands, Oriented to person, place, time, situation, Reports weakness. GI: Reports nausea. 08/13 00:22 Reassessment: Patient states feeling better. as6 Vital Signs: 02 21:47 BP 104 / 55; Pulse 44; Resp 13 S; Temp 97.5(O); Pulse Ox 98% on R/A; Weight 68.04 kg as6 (R); Pain 0/10; 22:30 BP 120 / 47; Pulse 52; Resp 21 S; Pulse Ox 100% on R/A; as6 23:37 BP 108 / 49; Pulse 52; Resp 12 S; Pulse Ox 100% on R/A; as6 ED Course: 21:42 Patient arrived in ED. rn 21:43 Gamaliel Blackmon MD is Attending Physician. rn 21:46 Tom Beck, AILYN is Primary Nurse. as6 21:48 Triage completed. as6 21:48 Arm band placed on. as6 21:48 Placed in gown. Bed in low position. Call light in reach. Side rails up X2. Client as6 placed on continuous cardiac and pulse oximetry monitoring. NIBP monitoring applied. 23:12 Chest Single View XRAY In Process Unspecified. EDMS 08/13 00:20 No provider procedures requiring assistance completed. IV discontinued, intact, as6 bleeding controlled, No redness/swelling at site. Pressure dressing applied. Administered Medications: 08/12 22:11 Drug: NS 0.9% 500 ml Route: IV; Rate: bolus; Site: left antecubital; as6 08/13 00:20 Follow up: Response: No adverse reaction; IV Status: Completed infusion; IV Intake: as6 500ml Medication: 00:21 VIS not applicable for this client. as6 Intake: 00:20 IV: 500ml; Total: 500ml. as6 Outcome: 08/12 23:50 Discharge ordered by . rn 08/13 00:21 Discharged to home via wheelchair, with family. as6 Condition: stable Discharge instructions given to patient, family, Instructed on discharge instructions, follow up and referral plans. medication usage, Demonstrated understanding of instructions, follow-up care, medications, Prescriptions given X 1. 00:22 Patient left the ED. as6 Signatures: Dispatcher [employer] EDME Gamaliel Blackmon MD MD rn Slawson, Ashby, AILYN RN as6 Corrections: (The following items were deleted from the chart) 08/12 21:49 21:47 Acuity: JULIET 3 as6 as6
[2022-08-13 00:10] LABS: Urine Blood Trace-intact (Negative); Urine Glucose Negative (Negative); Urine Protein Negative (Negative); Urine Specific Gravity 1.015 (1.005-1.030); Urine pH 5.5 (5.0-7.0)
[2022-08-13 02:03] VITALS: TEMP 97.5
[2022-08-13 02:04] VITALS: O2SAT 100
[2022-08-13 02:06] VITALS: BP 108/49
--- NOTE | 2022-08-13 12:06 | RAD REPORT ---
EXAM DESCRIPTION: RAD - Chest Single View - 08/12/2022 10:44 pm CLINICAL HISTORY: 87-year-old female with syncope and cough. TECHNIQUE: Single view, AP portable chest was obtained. COMPARISON: None. FINDINGS: Unremarkable cardiac and mediastinal silhouette. Heart size is normal. Tortuous atheroscle rotic thoracic aorta. Low lung volumes grossly clear without focal opacity, pneumothorax or pleural effusions. The visual ized bones are within normal limits. IMPRESSION: No acute cardiopulmonary abnormalities. 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 The interpreting radiologist is fully responsible for the content of the report.
--- NOTE | 2022-08-13 13:20 | EKG ---
Test Date: 2022-08-12 Test Time: 22:49:09 Chart Calculator: MEASUREMENT RESULTS: Intervals: Rate: 48 LA: 194 QRSD: 92 QT: 456 QTc: 407 [place]: P: 67 LA: 194 QRS: 9 T: 34 INTERPRETIVE STATEMENTS: Marked sinus bradycardia Low voltage QRS Abnormal ECG Compared to ECG 05/23/2021 18:25:04 Low QRS voltage now present Myocardial infarct finding no longer present Electronically Signed On 08-13-22 13:18:06 FRAME REPAIRER by Garrett Pinon
== END 2022-08-13 00:22 | disposition home or self-care (01) ==
LOC: ER 21:41
DX: R55 Syncope and collapse (principal); N39.0 Urinary tract infection, site not specified; M62.81 Muscle weakness (generalized); T50.995A Adverse effect of other drugs, medicaments and biological substances, initial encounter; E11.9 Type 2 diabetes mellitus without complications; I10 Essential (primary) hypertension; Z20.822 Contact with and (suspected) exposure to COVID-19; Z88.5 Allergy status to narcotic agent
CPT/HCPCS: 96361; 93005; 87040 ×2; 85025; 80048; 36415; 83735; 85610; 80076; 83605; 85730; 81003; 84484; 83880; 0240U; 70450; 71045; 96360; 99284; J7040

== ENCOUNTER 2023-01-17 15:01 | Inpatient (IN) | payer OTHER ==
--- NOTE | 2023-01-17 15:49 | P.HP ---
Certification for Inpatient Patient admitted to: Inpatient With expected LOS: >2 Midnights Patient will require the following post-hospital care: Residential Practitioner: I am a practitioner with admitting privileges, knowledge of patient current condition, hospital course, and medical plan of care. Services: Services provided to patient in accordance with Admission requirements found in Title 42 Section 412.3 of the Code of Federal Regulations Patient History Date of Service: 01/17/23 Primary Care Provider: Trey Reason for admission: ESBL UTI History of Present Illness: Patient is an office patient of Mrs Yang. She has a history of dm2 well controlled, htn, cad and hyperlipidemia. She has been having recurrent uti's over the past few months. She has had multiple rounds of antibiotics. She has some stomach pain and is urinating every 2 hours. Yesterday her cultures came back with MDR E. Coli. Only suseptible to meropenem and gentamycin. She will need 2 weeks of iv meropenem. As it would be difficult to arrange all this outpatient. I have admitted her for a picc line placement and social service consult for the meropenem Allergies morphine Allergy (Verified 03/28/18 00:41) Nausea/Vomiting Home Medications: Telmisartan/Hydrochlorothiazid [Micardis Hct 80-12.5 mg Tablet] 1 each PO DAILY 08/27/13 Hydrocodone/Acetaminophen [Hydrocodone-Acetamin 5-325 mg] 1 tab PO BIDP PRN 11/16/16 Amlodipine [Norvasc*] 5 mg PO DAILY 03/28/18 Atorvastatin Calcium [Lipitor*] 10 mg PO BEDTIME 03/28/18 Duloxetine [Cymbalta *] 20 mg PO BID 03/28/18 Lipase/Protease/Amylase [Mabel Dr 36,000 Unit Capsule] 36,000 units PO TIDWM 03/28/18 Pantoprazole [Protonix Tab*] 40 mg PO DAILY 03/28/18 Promethazine HCl 25 mg PO Q4H PRN 03/28/18 Sitagliptin Phosphate [Januvia*] 100 mg PO DAILY 03/28/18 - Past Medical/Surgical History Diabetic: Yes -: DM -: HTN -: Dyslipidemia -: Cholecystectomy -: Appendectomy -: Hysterectomy -: LUDMILA Cataract Repair - Social History Alcohol use: No CD- Drugs: No Caffeine use: Yes Review of Systems 10-point ROS is otherwise unremarkable Gastrointestinal: Abdominal Pain (mild ) Genitourinary: Frequency, Urgency Physical Examination - Physical Exam General: Alert, In no apparent distress HEENT: Atraumatic, PERRLA, Mucous membr. moist/pink, EOMI, Sclerae nonicteric Neck: Supple, 2+ carotid pulse no bruit, No LAD, Without JVD or thyroid abnormality Respiratory: Clear to auscultation bilaterally, Normal air movement Cardiovascular: Regular rate/rhythm, Normal S1 S2 Gastrointestinal: Normal bowel sounds, No tenderness Musculoskeletal: No tenderness Integumentary: No rashes Neurological: Normal gait, Normal speech, Normal strength at 5/5 x4 extr, Normal tone, Normal affect Lymphatics: No axilla or inguinal lymphadenopathy Assessment and Plan - Problems (Diagnosis) (1) UTI (urinary tract infection) due to Enterococcus Current Visit: Yes Status: Acute Plan: will admit her. Start her on meropenem. Will order a picc line. Order social work therapist for out patient iv antibiotic. (2) CAD (coronary artery disease) Current Visit: Yes Status: Acute Plan: she is on a statin, carvediolol, aspirin and plavix. Will continue the ARB, Aspirin and plavix. Will consider stopping the atorvastatin Qualifiers: Coronary Disease-Associated Artery/Lesion type: aug[place] artery [place] vs. transplanted heart: aug[place]ine heart Associated angina: without angina Qualified Code(s): I25.10 - Atherosclerotic heart disease of [place] coronary artery without angina pectoris (3) Diabetes mellitus Current Visit: No Status: Chronic Plan: She is well controlled on januvia. however will check an a1c. We may consider stopping this due to the increased risk of UTI's. (4) Hypertension Current Visit: No Status: Acute Plan: restart her home medications and adjust as needed. Qualifiers: Hypertension type: primary hypertension Qualified Code(s): I10 - Essential (primary) hypertension Discharge Plan: Custodial Plan to discharge in: 48 Hours - Advance Directives Does patient have a Living Will: No Does patient have a Durable POA for Healthcare: No - Code Status/Comfort Care Code Status Assessed: No Code Status: Full Code Physician Review: Patient Assessed, Agree with Above Assessment and Plan Critical Care: No Time Spent Managing Pts Care (In Minutes): 75
--- OUTSIDE RECORDS SUMMARY | 2023-01-17 15:58 | XMS REPORT | Continuity of Care Document ---
:1935 Author Organization [facility] t Address [address] [place] [place] [address] Care Team Providers Name Role Phone IRASEMA MORTON A Primary Care Physician Unavailable Daniel_T Attending Clinician Unavailable Eunice ROBERTSON, Osito A Attending Clinician Unavailable Audie Kwon MD Attending Clinician Cherie DANIEL, Blair Alford Attending Clinician Jeannine Yates MD Attending Clinician JEANNINE YATES Attending Clinician Unavailable Doctor Unassigned, [place] Attending Clinician Unavailable JOHNNA OATES Attending Clinician Unavailable HASMUKH SANTANA Attending Clinician Unavailable Daniel_T Admitting Clinician Unavailable Trudy DANIEL, Jeannine Admitting Clinician JEANNINE YATES Admitting Clinician Unavailable Payers Payer Name Policy Type Policy Number Effective Date Expiration Date S lilia [facility] - MEDICARE [id number] COMPLETE (MEDICARE REPLACEMENT HMO) [employer] - [facility] [id number] - COMMUNITY PLAN - DUAL COMPLETE FOCUS (MEDICARE REPLACEMENT HMO) 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 5-25 Family 00:00: Practic 00 e Type 2 Type 2 Problem Active [facility] diabetes Diabetes 2-15 Family mellitus Mellitus 00:00: Practi c 00 e Body mass Body Mass Problem Active Deirdre mylene index 30+ Index 30+ 2-15 Fami ly - obesity - Obesity 00:00: Prac tic 00 e Chronic Chronic Problem Active [facility] kidney Kidney 2-15 Family disease Disease 00:00: Practic stage 3 Stage 3 00 e Elevated Elevated Disease Active 2020-06 Unive rs troponin I troponin I 06-21 it y of level level 00:00: [place] [facility] Essential Essential Disease Active 2020-06 Uni vers hypertensi hypertensi 06-21 it y of on on 00:00: [place] [facility] Dyslipidem Dyslipidem Disease Active 2020-06 U nivers ia ia 06-21 ity of 00:00: [place] [facility] Abdominal Abdominal Disease Active 2020-06 Uni vers pain pain 06-20 ity of 00:00: [place] [facility] Depressive Depressive Problem Active [facility] ill[facility] disorder Disorder 11-14 Family 00:00: Practic 00 e Type 2 Type 2 Problem Active [facility]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 Diabetes 5-08 Family mellitus Mellitus 00:00: Practi c without without 00 e complicati Complicati on on Hyperlipid Hyperlipid Problem Active [facility] emia emia 08 Family 00:00: Practic 00 e Obesity Obesity Problem Active [facility] 5-08 Family 00:00: Practic 00 e Essential Essential Problem Active Deirdre mylene hypertensi Hypertensi 5-08 Fa luca on on 00:00: Practic 00 e Hypertensi Hypertensi Problem Active [facility] ill[facility] ve ve 5-08 Family disorder Disorder 00:00: Practi c 00 e Gastroesop Gastroesop Problem Active [facility] ill[facility] hageal hageal 5-08 Family reflux Reflux 00:00: Practic disease Disease 00 e without without esophagiti Esophagiti s s Clinical Clinical Problem Active Juan ge finding Finding 5-08 Family 00:00: Practic 00 e CAD of CAD of Problem Active 2021-06-30 Christian mary ellen Kenaitze Kenaitze 03:00:55 l Artery W Artery W Sage n Angina Angina Active Problem 06/30/2021 [facility] Type 2 Type 2 Diagnosis Active 2021-06-30 Chuck gonzalezriberkley diabetes diabetes 03:00:55 l mellitus mellitus Sage n without without complicati complicati ons ons Active Diagnosis 06/30/2021 [facility] Essential Diagnosis Active 2021-06-30 Memoria (primary) Essential 03:00:55 l hypertensi (primary) Her dean on hypertensi on Active Diagnosis 06/30/2021 [facility] Other Other Problem Active 2021-06-30 Memor ia hyperlipid hyperlipid 03:00:55 l emia emia [place] Active Problem 06/30/2021 [facility] Other Other Problem Active 2021-06-30 Memor ia hyperlipid hyperlipid 03:00:55 l emia emia [place] Active Problem 06/30/2021 [facility] 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 03:00:[place] coronary 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 Active Problem 06/30/2021 [facility] Mild Mild Problem Active 2021-06-30 Memor ia atheroscle atheroscle 03:00:55 l rosis of rosis of Sage n both both carotid carotid arteries arteries Active Problem 06/30/2021 [facility] CAD of CAD of Diagnosis Active 2021-06-30 Me moria Kenaitze Kenaitze 03:00:55 l Artery w/o Artery w/o He rmann Angina Angina Active Diagnosis 06/30/2021 [facility] Anemia, Anemia, Problem Active 2021-06-30 Me moria blood loss blood loss 03:00:55 l Active Imer Problem 06/30/2021 [facility] Anxiety Anxiety Problem Active 2021-06-30 Me moria with with 03:00:55 l depression depression He rmann Active Problem 06/30/2021 [facility] No known No known Disease Unive rs active active ity of problems problems [place] [facility] [place] Allergies, Adverse Reactions, Alerts Allergy Allergy Status Severity Reaction(s) Onset Inactive Treating Comm ents Source Name Type Date Date Clinician morphine morphine Active nervousness M emoria 1-10 l 00:00: Morphine Propensi Active Nausea 2020-06 Univer s ty to and/or 06-20 ity of adverse Vomiting 00:00: [place] reaction 00 Medical s Branch MORPHINE DRUG Active N/V 2020-06 Univers INGREDI 06-20 ity of 00:00: [place] [facility] NO KNOWN Drug Active Univers ALLERGIE Class ity of S [facility] Morphine Allergy Active [place] to Family substanc Practic e e Social History Social Habit Start Date Stop Date Quantity Comments Source Exposure to Not sure [facility] SARS-CoV-2 [place] [facility] (event) Branch History SDOH University o f Alcohol Std [place] [facility] Drinks Branch History SDOH University o f Alcohol Binge [place] [facility] History SDAR University o f Alcohol Comment [place] [facility] Alcohol intake 2021-04-21 2021-04-21 Lifetime University of 00:00:00 00:00:00 non-drinker [place] [facility] (finding) Branch Tobacco use and 2020-01-23 2020-01-23 Never used Universit y of exposure 00:00:00 00:00:00 [place] [facility] History SDOH 2020-01-23 2020-01-23 1 University o f Alcohol Frequency 00:00:00 00:00:00 [facility] edical [place] Sex Assigned At [birth year] Universit y of 00:00:00 00:00:00 [facility] Smoking Status Start Date Stop Date Source Never smoker [facility] xa Medical Branch Medications Ordered Filled Start Stop Current Ordering Indication Dosage Frequency Signature Comments Components Source Medication Medication Date Date Medication? Clinician (SIG) Name Name hyoscyamine Yes TERRY 1 tab(s) Memoria 06-30 GAMAL l 03:00: I[place] 55 Creon Yes TERRY 1 cap(s) Memor ia 06-30 GAMAL l 03:00: [place] 53 ondansetron Yes TERRY 1 tab(s) Memoria 06-30 GAMAL l 03:00: I[place] 53 acetaminoph 2021-0 Yes TERRY 1 tab(s) Memoria en-hydrocod -11 GAMAL l one 03:00: I[place] 55 aspirin 2021-0 Yes TERRY 1 tab(s) Mem oria 1-11 GAMAL l 03:00: I[place] 55 aspirin 2021-0 Yes TERRY 1 tab(s) Mem oria -11 GAMAL l 03:00: [place] 53 clopidogrel 2021-0 Yes TERRY 1 tab(s) Memoria 1-11 GAMAL l 03:00: [place] 53 carvedilol 2021-0 Yes TERRY 1 tab(s) Memoria -11 GAMAL l 03:00: [place] 55 famotidine 2021-0 Yes TERRY 1 tab(s) Memoria -11 GAMAL l 03:00: [place] Weaver Januvia 2021-0 Yes TERRY 1 tab(s) Mem oria -11 GAMAL l 03:00: [place] Micardis 2021-0 Yes TERRY 1 tab(s) Me moria HCT - GAMAL l 03:00: [place] hyoscyamine 2021-0 Yes TERRY 1 tab(s) Memoria -11 GAMAL l 03:00: [place] Creon 2021-0 Yes TERRY 1 cap(s) Memor ia - GAMAL l 03:00: [place] 55 ondansetron 2021-0 Yes TERRY 1 tab(s) Memoria -11 GAMAL l 03:00: I[place] 55 acetaminoph 2021-0 Yes TERRY 1 tab(s) Memoria en-hydrocod -11 GAMAL l one 03:00: I[place] 55 clopidogrel 2021-0 Yes TERRY 1 tab(s) Memoria 1-11 GAMAL l 03:00: [place] 55 carvedilol 2021-0 Yes TERRY 1 tab(s) Memoria 1-11 GAMAL l 03:00: [place] 55 famotidine 2021-0 Yes TERRY 1 tab(s) Memoria -11 GAMAL l 03:00: [place] 55 Januvia 2021-0 Yes TERRY 1 tab(s) Mem oria -11 GAMAL l 03:00: Imre 53 Micardis Yes TERRY 1 tab(s) Me moria HCT 06-30 GAMAL l 03:00: Imer 55 aspirin 81 2020-06 Yes [id number] 81mg Take 1 U nivers mg chewable 1-05 tablet by ity of tablet 00:00: mouth [place] 00 daily. Medical Branch clopidogreL 2020-06 Yes [id number] 75mg Take 1 Univers 75 mg 1-05 tablet by ity of tablet 00:00: mouth [place] 00 daily. Medical Branch aspirin 81 2020-06 Yes [id number] 81mg Take 1 U nivers mg chewable 1-05 tablet by ity of tablet 00:00: mouth [place] 00 daily. Medical Branch clopidogreL 2020-06 Yes [id number] 75mg Take 1 Univers 75 mg 1-05 [...] 10mg Take 10 mg U nivers (CLARITIN) -04 by mouth ity o f 10 mg 13:30: daily. [place] tablet Medical Branch lipase/prot 2020-06 Yes Take by Uni vers ease/amylas 1-04 mouth. ity of e (CREON 13:30: [place] ORAL) Medical Branch fluticasone 2020-06 Yes Use in [facility] ers propionate 1-04 each ity of (FLONASE 13:30: nostril. [place] NASAL) Medical Branch ondansetron 2020-06 Yes 4mg Take 4 mg U nivers 4 mg tablet -04 by mouth ity of 13:30: every 8 [place] 01 (eight) Medical hours as Branch needed for Nausea and Vomiting (N/V). HYDROcodone 2020-06 Yes 1{tbl} Take 1 Un allie -acetaminop 1-04 tablet by ity of hen 5-325 13:30: mouth 2 [place] mg tablet (two) Medical times Branch daily as needed [...] 10mg Take 10 mg U nivers (CLARITIN) -04 by mouth ity o f 10 mg 13:30: daily. [place] tablet Medical Branch lipase/prot 2020-06 Yes Take by Uni vers ease/amylas 1-04 mouth. ity of e (CREON 13:30: [place] ORAL) Medical Branch fluticasone 2020-06 Yes Use in Univ ers propionate 1-04 each ity of (FLONASE 13:30: nostril. [place] NASAL) Medical Branch ondansetron 2020-06 Yes 4mg Take 4 mg U nivers 4 mg tablet -04 by mouth ity of 13:30: every 8 [place] 01 (eight) Medical hours as Branch needed for [...] 2020-06- No .125mg Take 0.125 Univers (LEVSIN) 1-04 11-04 mg by ity of 0.125 mg 11:11: 00:00 [place] tablet 30 :00 needed. Medical Branch acetaminoph 2020-06 202- No 1{tbl} Take 1 Tab Univers en-codeine 06-23 by mouth ity of (TYLENOL 11:11: 00:00 [place]. [place] #3[place] 300-30 30 :00 Medical mg tablet Branch telmisartan 2020-06- No 1{tbl} Take 1 Tab Univers -hydrochlor 06-23 by mouth ity of othiazide 11:11: 00:00 daily. [place] (MICARDIS 30 :00 Medical HCT) Branch 80-12.5 mg per tablet alum-mag 2020-06 Yes 30mL 30 mL, Univers hydroxide-s 1-04 Oral, ity of imeth 00:23: Q4HPRN, [place] (MAALOX 33 Starting Medical PLUS / on Wed Branch MAG-AL 04/22/21 at PLUS) 1923, 200-200-20 Until mg/5 mL Discontinu suspension ed, 30 mL Routine, Indigestio n, Heartburn, Gas carvediloL 2020-06 Yes [id number] 3.125mg Take 1 Univers 3.125 mg 1-04 tablet by ity of tablet 00:00: mouth 2 [place] 00 (two) Medical times Branch daily with meals. nitroglycer 2020-[id number] 1 Univers in 0.4 mg 1-04 tablet ity of sublingual 00:00: under the [place] tablet 00 tongue Medical every 5 Branch (five) minutes as needed for Chest pain. carvediloL 2020-06 Yes [id number] 3.125mg Take 1 Univers 3.125 mg 1-04 tablet by ity of tablet 00:00: mouth 2 [place] [address] (two) Medical times Branch daily with meals. nitroglycer 2020-[id number] 1 Univers in 0.4 mg 1-04 tablet ity of sublingual 00:00: under the [place] tablet 00 tongue Medical every 5 Branch (five) minutes as needed for Chest pain. lipase-prot 2020-06 Yes 2{capsu 2 capsule, Univers ease-amylas 1-03 le} Oral, TID ity of e (CREON) 16:00: MEALS, [place] 12,000-38,0 00 First dose Me dical 00 -60,000 on Tue [place] unit 04/22/21 at capsule 2 1100, capsule Until Discontinu ed famotidine 2020-06 Yes 20mg 20 mg, Unive rs (PEPCID AC) 06-22 Oral, ity of tablet 20 14:00: DAILY, [place] mg 00 First dose Medical (after last modificati on) on Tue04/22/21 at 0900, Until Discontinu ed, Routine sulfur 2020-06- No [id number] 5mL 5 mL, Unive rs hexafluorid 06-21 Intravenou i ty of e microsphr 21:00: 21:00 s, ONCE, 1 [place] (LUMASON) 00 :00 dose, On Medica l injection 5 [facility] mL 04/21/21 at 1600, Routine
pricing/signage team member approving Restricted medication : ELSI MEANS amLODIPine 2020-06 Yes 10mg 10 mg, Unive rs (NORVASC) 06-21 Oral, ity of tablet 10 14:00: DAILY, [place] mg 00 First dose Medical on [facility] 04/21/21 at 0900, Until Discontinu ed, Routine SITagliptin 2020-06 Yes 100mg 100 mg, Un allie (JANUVIA) 06-21 Oral, ity of tablet 100 14:00: DAILY, [place] mg 00 First dose Medical on [facility] 04/21/21 at 0900, Until Discontinu ed, Routine fluticasone 2020-06 Yes 1{spray 1 [place], Univers propionate 06-21 } Nasal, ity of 50 14:00: DAILY, [place] mcg/actuati 00 First dose Me dical on nasal on [facility] spray 1 04/21/21 at [place] 0900, Until Discontinu ed clopidogreL 2020-06 Yes 75mg 75 mg, Univ ers (PLAVIX) 06-21 Oral, ity of tablet 75 14:00: DAILY, [place] mg 00 First dose Medical on [facility] 04/21/21 at 0900, Until Discontinu ed, Routine aspirin 2020-06 Yes 81mg 81 mg, Univers chewable 06-21 Oral, ity of tablet 81 14:00: DAILY, [place] mg 00 First dose Medical on [facility] 04/21/21 at 0900, Until Discontinu ed, Routine famotidine 2020-06 No 40mg 40 mg, [facility] ers (PEPCID AC) 06-21 Oral, ity of tablet 40 14:00: 16:01 DAILY, [place] mg 00 :42 First dose Medical on [facility] 04/21/21 at 0900, Until Discontinu ed, Routine Sliding 2020-06 Yes Subcutaneo [facility] ers Scale 1-02 us, TID ity of Insulin - 13:00: MEALS+HS, [place] as Lispro 00 First dose Medical (HumaLOG) + on [facility] Fsbg 04/21/21 at Testing 0800, Until Discontinu ed, Routine HYDROcodone 2020-06 Yes 1{tbl} 1 tablet, Univers -acetaminop 06-21 Oral, ity of hen (NORCO) 06:21: Q6HPRN, [place] as 10-325 mg 01 Starting Medica l tablet [address] [facility] tablet 04/21/21 at 0121, Until Discontinu ed, Routine, Pain (scale 7-10) HYDROcodone 2020-06 Yes 1{tbl} 1 tablet, Univers -acetaminop 06-21 Oral, ity of hen (NORCO 06:20: Q6HPRN, [place] 5) 5-325 mg 49 Starting Medi atul tablet [address] [facility] tablet 04/21/21 at 0120, Until Discontinu ed, Routine, Pain (scale 4-6) atorvastati 2020-06 Yes 40mg 40 mg, [facility] ers n (LIPITOR) 06-21 Oral, QHS, it y of tablet 40 06:00: First dose [place] mg 00 on [facility] 04/21/21 at Branch 0100, Until Discontinu ed, Routine carvediloL 2020-06 Yes 3.125mg 3.125 mg, Univers (COREG) 06-21 Oral, BID ity of tablet 06:00: MEALS, [place] 3.125 mg 00 First dose Medic al on [facility] 04/21/21 at 0100, Until Discontinu ed, Routine
pricing/signage team member approving Restricted medication : JEANNINE YATES nitroglycer 2020-06 Yes .4mg 0.4 mg, Uni vers in 06-21 Sublingual ity of (NITROSTAT) 05:46: , Q5MIN [place] as sublingual 19 PRN, Medical tablet 0.4 Starting Branc h mg on Tue04/21/21 at 0046, Until Discontinu ed, Routine, Chest pain ondansetron 2020-06 Yes 4mg 4 mg, Slow Univers (ZOFRAN 06-21 IV Push, ity of (PF)) 05:46: Q6HPRN, [place] injection 4 01 Starting Medi atul mg on Tue04/21/21 at 0046, Until Discontinu ed, Routine, Nausea and Vomiting (N/V) acetaminoph 2020-06 Yes 650mg 650 mg, Un allie en 06-21 Oral, ity of (TYLENOL) 05:45: Q6HPRN, [place] tablet 650 47 Starting Medic al mg [...] 04/20/21 at 2230, LEANNE iopamidol 2020-06- No [id number] 120mL 120 mL, Univers (ISOVUE 06-21 Intravenou ity o f 370-500 mL) 01:15: 01:15 s, ONCE, 1 [place] injection 00 :00 dose, On Medica l 120 mL Mon Branch 04/20/21 at 2015, Routine Nitrofurant Yes [id number] 100mg Take 1 Univers oin&Nit. 4-29 capsule by ity o f Macrocryst 00:00: mouth 2 [place] 100 mg 00 (two) Medical capsule times Branch daily with meals. Nitrofurant 2020- No [id number] 100mg Take 1 Univers oin&Nit. 4-29 04-23 capsule by ity of Macrocryst 00:00: 00:00 mouth 2 [place] as 100 mg 00 :00 (two) Medical capsule times Branch daily with meals. metFORMIN Yes 500mg Take 500 Uni vers (GLUCOPHAGE 8-05 mg by ity of ) 500 mg 11:13: mouth 2 [place] tablet 05 (two) Medical times Branch daily with meals. amLODIPine Yes 10mg Take 10 mg U nivers (NORVASC) 8-05 by mouth ity of 10 mg 11:13: daily. [place] tablet 05 Medical Branch hyoscyamine Yes .125mg Take 0.125 Univers (LEVSIN) 8-05 mg by ity of 0.125 mg 11:13: mouth as [place] tablet 05 needed. Medical Branch atorvastati Yes 20mg Take 20 mg Univers n (LIPITOR) 8-05 by mouth ity of 20 mg 11:13: at [place] tablet 05 bedtime. Medical Branch telmisartan Yes 1{tbl} Take 1 Tab Univers -hydrochlor 8-05 by mouth ity of othiazide 11:13: daily. [place] (MICARDIS 05 Medical HCT) Branch 80-12.5 mg per tablet loratadine Yes 10mg Take 10 mg U nivers (CLARITIN) 8-05 by mouth ity o f 10 mg 11:13: daily. [place] tablet 05 Medical Branch lipase/prot Yes Take by Uni vers ease/amylas 8-05 mouth. ity of e (CREON 11:13: [place] ORAL) 05 Medical Branch fluticasone Yes Use in Univ ers propionate 8-05 each ity of (FLONASE 11:13: nostril. [place] NASAL) 05 Medical Branch phenazopyri Yes 200mg Take 1 Uni vers dine 200 mg 8-17 tablet by ity of tablet 00:00: mouth 3 [place] 00 (three) Medical times Branch daily. phenazopyri 2020- No 200mg Take 1 Un allie dine 200 mg 8-17 11-04 tablet by it y of tablet 00:00: 00:00 mouth 3 [place] 00 :00 (three) Medical times Branch daily. amlodipine Yes TERRY 1 tab(s) Memoria 6 GAMAL l 00:00: [place] 00 amlodipine Yes TERRY 1 tab(s) Memoria 6- GAMAL l 00:00: [place] 00 acetaminoph Yes 1{tbl} Take 1 Tab Univers en-codeine 3-08 by mouth ity o f (TYLENOL 15:44: as needed. [place] as #3) 300-30 32 Medical mg tablet Branch famotidine Yes 40mg Take 1 Tab U nivers (PEPCID) 40 3-08 by mouth ity of mg tablet 00:00: daily. Medical Branch famotidine Yes 40mg Take 1 Tab U nivers (PEPCID) 40 3-08 by mouth ity of mg tablet 00:00: daily. Medical Branch famotidine Yes 40mg Take 1 Tab U nivers (PEPCID) 40 3-08 by mouth ity of mg tablet 00:00: daily. Medical Branch Lipitor 2012-06 Yes TERRY 1 tab(s) Mem oria 0-24 GAMAL l 00:00: Lipitor 2012-06 Yes TERRY 1 tab(s) Mem oria 0-24 GAMAL l 00:00: atorvastati atorvastati No atorvastat [place] n 10 mg n 10 mg in 10 mg Famil y tablet Take tablet Take tablet Practic 1 tablet 1 tablet Take 1 e every day every day tablet by oral by oral every day route. route. by oral route. brimonidine brimonidine No brimonidin [place] 0.2 % eye 0.2 % eye e 0.2 % [place] drops drops eye drops Practic e carvedilol carvedilol No 1 BID carvedilol [place] 3.125 mg 3.125 mg 3.125 mg Fam ronit tablet Take tablet Take tablet Practic 1 tablet 1 tablet Take 1 e twice a day twice a day tablet by oral by oral twice a route. route. day by oral route. ciprofloxac ciprofloxac No ciprofloxa [place] in 500 mg in 500 mg li 500 mg Family tablet tablet tablet Practic e clopidogrel clopidogrel No clopidogre [place] 75 mg 75 mg l 75 mg Family tablet tablet tablet Practic e Creon Creon No [facility] Family Practic e Creon Cre No [facility] 36,000 36,000 36,000 Family unit-114,00 unit-114,00 unit-114,0 Practic 0 0 00 e unit-180,00 unit-180,00 unit-180,0 0 unit 0 unit 00 unit capsule,del capsule,del capsule,de ayed ayed layed release release release dicyclomine dicyclomine No dicyclomin [facility] 10 mg 10 mg e 10 mg Family capsule capsule capsule Practi c e esomeprazol esomeprazol No esomeprazo [facility] e magnesium e magnesium le F amily 40 mg 40 mg magnesium Practic capsule,del capsule,del 40 mg e ayed ayed capsule,de release release layed release famotidine famotidine No 1 Q1D famotidine [facility] 40 mg 40 mg 40 mg Family tablet Take tablet Take tablet Practic 1 tablet 1 tablet Take 1 e every day every day tablet by oral by oral every day route. route. by oral route. hydrocodone hydrocodone No [facility] e 5 Family mg-acetamin mg-acetamin mg-acetami Practic ophen 300 ophen 300 nophen 300 e mg tablet mg tablet mg tablet Take 1 Take 1 Take 1 tablet tablet tablet every 4 every 4 every 4 hours by hours by hours by oral route. oral route. oral route. hydrocodone hydrocodone No [facility] 5 5 e 5 Family mg-acetamin mg-acetamin mg-acetami Practic ophen 325 ophen 325 nophen 325 e mg tablet mg tablet mg tablet hydrocodone hydrocodone No [facility] 7.5 7.5 e 7.5 Family mg-acetamin mg-acetamin mg-acetami Practic ophen 325 ophen 325 nophen 325 e mg tablet mg tablet mg tablet Januvia 100 Januvia 100 No 1 Q1D Januvia [facility] mg tablet mg tablet 100 mg Fam ronit Take 1 Take 1 tablet Practic tablet tablet Take 1 e every day every day tablet by oral by oral every day route for route for by oral 90 days. 90 days. route for 90 days. levofloxaci levofloxaci No levofloxac [facility] n 500 mg n 500 mg in 500 mg [place] tablet tablet tablet Practic e Lipitor 20 Lipitor 20 No 1 Q1D Lipitor 20 [facility] mg tablet mg tablet mg tablet Family Take 1 Take 1 Take 1 Practic tablet tablet tablet e every day every day every day by oral by oral by oral route at route at route at bedtime. bedtime. bedtime. neomycin-po neomycin-po No neomycin-p [facility] lymyxin-hyd lymyxin-hyd olymyxin-h Family rocort 3.5 rocort 3.5 ydrocort Practic mg/mL-10,00 mg/mL-10,00 3.5 e 0 unit/mL-1 0 unit/mL-1 mg/mL-10,0 % ear % ear 00 solution solution unit/mL-1 % ear solution nitrofurant nitrofurant No nitrofuran [facility] oin oin toin Family monohydrate monohydrate monohydrat Practic /macrocryst /macrocryst e/macrocry e als 100 mg als 100 mg stals 100 capsule capsule mg capsule nitroglycer nitroglycer nitroglyce [facility] in 0.4 mg in 0.4 mg rin 0.4 mg Family sublingual sublingual sublingual Practic tablet tablet tablet e ondansetron ondansetron ondansetro [facility] 4 mg 4 mg n 4 mg Family disintegrat disintegrat disintegra Practic ing tablet ing tablet ting e tablet pantoprazol pantoprazol No 1 Q1D pantoprazo [facility] e 40 mg e 40 mg le 40 mg Famil y tablet,davy tablet,davy tablet,del Practic yed release yed release ayed e Take 1 Take 1 release tablet tablet Take 1 every day every day tablet by oral by oral every day route. route. by oral route. telmisartan telmisartan telmisarta [facility] 80 80 n 80 Family mg-hydrochl mg-hydrochl mg-hydroch Practic orothiazide orothiazide lorothiazi e 12.5 mg 12.5 mg de 12.5 mg tablet Take tablet Take tablet 1 tablet 1 tablet Take 1 every day every day tablet by oral by oral every day route. route. by oral route. travoprost travoprost travoprost [facility] 0.004 % eye 0.004 % eye 0.004 % Family drops drops eye drops Practic e trazodone trazodone trazodone [facility] 50 mg 50 mg 50 mg Family tablet tablet tablet Practic e Accu-Chek Accu-Chek No Accu-Chek [facility] FastClix FastClix FastClix Fam ronit Lancing Lancing Lancing Practi c Device Device Device e Accu-Chek Accu-Chek No 1strip( Q1D Accu-Chek [facility] Guide test Guide test s) Guide test Family strips Take strips Take strips Practic 1 strip 1 strip Take 1 e every day every day strip by miscell. by miscell. every day route for route for by 90 days. 90 days. miscell. route for 90 days. Accu-Chek Accu-Chek No Accu-Chek [facility] Softclix Softclix Softclix Fam ronit Lancets Lancets Lancets Practi c e Alphagan P Alphagan P No Alphagan P [facility] 0.1 % eye 0.1 % eye 0.1 % eye Family drops drops drops Practic e amlodipine amlodipine No amlodipine [facility] 10 mg 10 mg 10 mg Family tablet tablet tablet Practic e aspirin aspirin No aspirin [place] once a day once a day once a day Family Practic e atorvastati atorvastati No atorvastat [facility] n 20 mg n 20 mg in 20 mg Famil y tablet Take tablet Take tablet Practic 1 tablet 1 tablet Take 1 e every day every day tablet by oral by oral every day route at route at by oral bedtime. bedtime. route at bedtime. brimonidine brimonidine No brimonidin [facility] 0.2 % eye 0.2 % eye e 0.2 % Fa luca drops drops eye drops Practic e carvedilol carvedilol No carvedilol [facility] 3.125 mg 3.125 mg 3.125 mg Fam ronit tablet Take tablet Take tablet Practic 1 tablet 1 tablet Take 1 e twice a day twice a day tablet by oral by oral twice a route. route. day by oral route. clopidogrel clopidogrel No clopidogre [facility] 75 mg 75 mg l 75 mg Family tablet tablet tablet Practic e Creon Creon No [facility] Family Practic e Creon Creon [facility] 36,000 36,000 36,000 Family unit-114,00 unit-114,00 unit-114,0 Practic 0 0 00 e unit-180,00 unit-180,00 unit-180,0 0 unit 0 unit 00 unit capsule,del capsule,del capsule,de ayed ayed layed release release release esomeprazol esomeprazol No esomeprazo [place] e magnesium e magnesium le F amily 40 mg 40 mg magnesium Practic capsule,del capsule,del 40 mg e ayed ayed capsule,de release release layed release Januvia 50 Januvia 50 No 1 Q1D Januvia 50 Village mg tablet mg tablet mg tablet Family Take 1 Take 1 Take 1 Practic tablet tablet tablet e every day every day every day by oral by oral by oral route for route for route for 90 days. 90 days. 90 days. levofloxaci levofloxaci No levofloxac [facility] n 500 mg n 500 mg in 500 mg Fa luc[place] tablet tablet tablet Practic e nitrofurant nitrofurant No nitrofuran [facility] oin oin toin [facility] monohydrate monohydrate monohydrat Practic /macrocryst /macrocryst e/macrocry e als 100 mg als 100 mg stals 100 capsule capsule mg capsule nitroglycer nitroglycer nitroglyce [facility] in 0.4 mg in 0.4 mg rin 0.4 mg Family sublingual sublingual sublingual Practic tablet tablet tablet e ondansetron ondansetron No ondansetro [facility] 4 mg 4 mg n 4 mg Family disintegrat disintegrat disintegra Practic ing tablet ing tablet ting e tablet telmisartan telmisartan No telmisarta [facility] 80 80 n 80 Family mg-hydrochl mg-hydrochl mg-hydroch Practic orothiazide orothiazide lorothiazi e 12.5 mg 12.5 mg de 12.5 mg tablet Take tablet Take tablet 1 tablet 1 tablet Take 1 every day every day tablet by oral by oral every day route. route. by oral route. travoprost travoprost travoprost [facility] 0.004 % eye 0.004 % eye 0.004 % Family drops drops eye drops Practic e trazodone trazodone trazodone [facility] 50 mg 50 mg 50 mg Family tablet tablet tablet Practic e Accu-Chek Accu-Chek No Accu-Chek [facility] FastClix FastClix FastClix Fam ronit Lancing Lancing Lancing Practi c Device Device Device e Accu-Chek Accu-Chek No 1strip( Q1D Accu-Chek [facility] Guide test Guide test s) Guide test Family strips Take strips Take strips Practic 1 strip 1 strip Take 1 e every day every day strip by miscell. by miscell. every day route for route for by 90 days. 90 days. miscell. route for 90 days. Alphagan P Alphagan P No Alphagan P [facility] 0.1 % eye 0.1 % eye 0.1 % eye Family drops drops drops Practic e amlodipine amlodipine No amlodipine [facility] 5 mg tablet 5 mg tablet 5 mg F amily Take 1 Take 1 tablet Practic tablet tablet Take 1 e every day every day tablet by oral by oral every day route. route. by oral route. aspirin aspirin No aspirin Villag e once a day once a day once a day Family Practic e Immunizations Ordered Filled Immunization Date Status Comments [facility] e Immunization Name Name influenza, influenza, 2021-04-[address] [facility] high-dose, high-dose, 00:00:00 Practice quadrivalent - ML quadrivalent - ML COVID-19, mRNA, COVID-19, mRNA, 2020-09-27 Completed [facility] age Family LNP-S, PF, 100 LNP-S, PF, 100 00:00:00 Practi ce mcg/0.5 mL dose mcg/0.5 mL dose (Moderna) - ML (Moderna) - ML COVID-19, mRNA, COVID-19, mRNA, 2020-08-23 Completed [facility] age Family LNP-S, PF, 100 LNP-S, PF, 100 00:00:00 Practi ce mcg/0.5 mL dose mcg/0.5 mL dose (Moderna) - ML (Moderna) - ML Influenza High Dose 2020-03-22 Completed Unive rsity of 00:00:00 [facility] Influenza High Dose 2020-03-22 Completed Unive rsity of 00:00:00 [facility] Influenza Virus 2019-04-18 Completed Universit y of Vaccine Recomb Quad 00:00:00 [facility] IM, Preserv and ABX Branc h Free 18-64 YRS Influenza Virus 2019-04-18 Completed Universit y of Vaccine Recomb Quad 00:00:00 [facility] IM, Preserv and ABX Branc h Free 18-64 YRS Pneumococcal 13 2012-06-20 Completed Universit y of Conjugate, PCV13 00:00:00 [facility] dical (Prevnar 13) Branch Pneumococcal 13 2012-06-20 Completed Universit y of Conjugate, PCV13 00:00:00 [facility] dical (Prevnar 13) Branch Vital Signs Vital Name Observation Time Observation Value Comments Source BP Diastolic 2022-11-11 00:00:00 66 mm[Hg] [facility] Height 2022-11-11 00:00:00 57 [in_i] [facility] BMI (Body Mass 2022-11-11 00:00:00 32.9 kg/m2 Vill[facility] e Family Index) Practice BP Systolic 2022-11-11 00:00:00 174 mm[Hg] [facility] Body Weight 2022-11-11 00:00:00 152 [lb_av] [facility] Practice BP Diastolic 2021-08-04 00:00:00 84 mm[Hg] [facility] Height 2021-08-04 00:00:00 57 [in_i] [facility] Practice BMI (Body Mass 2021-08-04 00:00:00 32 kg/m2 [facility] e Family Index) Practice BP Systolic 2021-08-04 00:00:00 147 mm[Hg] [facility] Body Weight 2021-08-04 00:00:00 148 [lb_av] [facility] Practice Systolic blood 2021-04-23 16:00:00 135 mm[Hg] Univer [facility]ity of [facility] Diastolic blood 2021-04-23 16:00:00 54 mm[Hg] [facility]ive rsity of [facility] Body temperature 2021-04-23 16:00:00 [facility].83 [facility] Res[facility] rate 2021-04-23 16:00:00 16 /min [facility] Heart rate 2021-04-23 09:00:00 53 /min [facility] Oxygen saturation in 2021-04-23 09:00:00 97 /min [facility] Arterial blood by [facility] Pulse oximetry Branch Body weight 2021-04-22 10:00:00 67.994 kg [facility] BMI 2021-04-22 10:00:00 31.33 kg/m2 [facility] Body height 2021-04-21 04:40:00 147.3 cm [facility] Systolic (mm Hg) 2021-06-29 21:15:00 Christian mary ellenl [place] Weight 2021-06-29 21:15:00 [facility] Height 2021-06-29 21:15:00 [facility] Temperature Oral (F) 2021-06-29 21:15:00 97.2 F [facility] Diastolic (mm Hg) 2021-06-29 21:15:00 Mem orial Imer Procedures Procedure Date / Time Performing Clinician Source Performed POCT GLUCOSE (AUTOMATED) 2021-04-23 14:39:00 [facility] (AUTOMATED) 2021-04-23 12:42:00 [facility] TROPONIN I 2021-04-23 09:39:00 Moo Roth [facility] BASIC METABOLIC PANEL (NA, 2021-04-23 09:39:00 [facility], CL, CO2, GLUCOSE, BUN, Medica l Branch CREATININE, CA) ACTIVATED PARTIAL THRMPLAS 2021-04-23 09:39:00 Luis A Medina [facility] N-TERMINAL PRO-BNP 2021-04-23 09:39:00 [facility] POCT GLUCOSE (AUTOMATED) 2021-04-23 02:20:00 [facility]UCOSE (AUTOMATED) 2021-04-22 20:46:00 Blair Crespo [facility] ACTIVATED PARTIAL THRMPLAS 2021-04-22 18:35:00 Moo Roth [facility] POCT GLUCOSE (AUTOMATED) 2021-04-22 16:19:00 [facility]SE (AUTOMATED) 2021-04-22 12:29:00 [facility] PHOSPHORUS 2021-04-22 10:29:00 Moo Roth [facility] MAGNESIUM 2021-04-22 10:29:00 Moo Roth [facility] TROPONIN I 2021-04-22 10:29:00 Moo Roth [facility] BASIC METABOLIC PANEL (NA, 2021-04-22 10:29:00 Moo Roth [facility] K, CL, CO2, GLUCOSE, BUN, Medica l Branch CREATININE, CA) CBC WITH DIFF 2021-04-22 10:29:00 Moo Roth [facility] ACTIVATED PARTIAL THRMPLAS 2021-04-22 10:29:00 Luis A Medina [facility] N-TERMINAL PRO-BNP 2021-04-22 10:29:00 [facility] PO[facility]SE (AUTOMATED) 2021-04-22 00:31:00 [facility] 2021-04-21 23:10:00 Jeannine Yates [facility] ACTIVATED PARTIAL THRMPLAS 2021-04-21 23:10:00 Moo Roth [facility] POCT GLUCOSE (AUTOMATED) 2021-04-21 21:52:00 [facility] TRANSTHORACIC ECHO (TTE) 2021-04-21 17:14:00 Jeannine Yates [facility] COMPLETE W/ CONTRAST Medical [facility] HB ECG ROUTINE & RHYTHM 2021-04-21 17:05:37 Alfredo Joy [facility] POCT GLUCOSE (AUTOMATED) 2021-04-21 16:46:00 [facility] PO[facility]SE (AUTOMATED) 2021-04-21 13:06:00 [facility] TROPONIN I 2021-04-21 12:43:00 Jeannine Yates [facility] BASIC METABOLIC PANEL (NA, 2021-04-21 12:43:00 [facility], CL, CO2, GLUCOSE, BUN, Medica l Branch CREATININE, CA) LIPID PANEL (15267)(TOTAL 2021-04-21 12:43:00 Jeannine Yates [facility] TRIGLYCER[facility], HDL) ACTIVATED PARTIAL THRMPLAS 2021-04-21 12:40:00 Blair Crespo [facility] CBC WITH DIFF 2021-04-21 09:59:00 [place] 2021-04-21 06:28:00 [facility] / INR 2021-04-21 03:47:00 [facility]IV[facility] PARTIAL THRMPLAS 2021-04-21 03:47:00 Blair Crespo [facility] CARMENCITA [facility] Branch COVID-19 (ID NOW RAPID 2021-04-21 02:19:00 Blair Crespo [facility] TESTING) Medical Branch LAB ONLY COVID 2021-04-21 02:19:00 Blair Crespo [facility] INTERPRETATION [facility] CT ABDOMEN PELVIS W 2021-04-21 01:31:[address] [facility] CONTRAST [facility] HB ECG ROUTINE & RHYTHM 2021-04-21 00:31:26 Doyle Audie [facility] STRIP [facility] LACTIC ACID WHOLE BLOOD 2021-04-21 00:28:00 Doyle [facility] LIPASE 2021-04-21 00:27:00 Doyle [facility] TROPONIN I 2021-04-21 00:27:00 Doyle [facility] THYROID STIMULATING 2021-04-21 00:27:00 [facility] Branch COMP. METABOLIC PANEL 2021-04-21 00:27:00 Audie Kwon [facility] ([id number]) [facility] CBC WITH DIFF 2021-04-21 00:27:00 Doyle Audie [facility] GLYCOSYLATED HEMOGLOBIN 2021-04-21 00:27:00 [facility] URINE CULTURE 2021-04-21 00:27:00 Doyle Audie [facility] N-TERMINAL PRO-BNP 2021-04-21 00:27:00 Audie Kwon [facility] URINALYSIS 2021-04-21 00:26:00 Audie Kwon [facility] CONSENT/REFUSAL FOR 2021-04-20 20:26:52 Doctor Unassigned, [facility] DIAGNOSIS AND TREATMENT [place] [facility] Bilateral Extraction of Village Family Cataracts Practice Appendectomy [facility] Hysterectomy (Total) [facility] ronit Practice Laparoscopic [facility] Cholecystectomy Practice Plan of Care Planned Activity Planned Date Details Comments Source Diagnostic Test 2022-11-11 glucose, fingerstick, Deirdre chakraborty Family Pending 00:00:00 blood [code = Practice glucose, fingerstick, blood] Diagnostic Test 2022-11-11 hemoglobin A1C, Village F amily Pending 00:00:00 fingerstick [code = Practice hemoglobin A1C, fingerstick] Diagnostic Test 2022-11-11 CBC w/ auto diff [facility] Family Pending 00:00:00 [code = CBC w/ auto Practice diff] Diagnostic Test 2022-11-11 CMP, serum or plasma Vill age Family Pending 00:00:00 [code = CMP, serum or Practi ce plasma] Diagnostic Test 2022-11-11 lipid panel, serum Villag e Family Pending 00:00:00 [code = lipid panel, Practic e serum] Diagnostic Test 2022-11-11 TSH, serum or plasma Vill age Family Pending 00:00:00 [code = TSH, serum or Practi ce plasma] Diagnostic Test 2022-11-11 T4, free, serum [code Deirdre chakraborty Family Pending 00:00:00 = T4, free, serum] Practice Diagnostic Test 2022-11-11 microalbumin/creatini Deirdre chakraborty [facility] Pending 00:00:00 ne, mass ratio, urine Practi ce [code = microalbumin/creatini ne, mass ratio, urine] Future Appointment 2023-05-16 Shima Quesada [facility] 09:15:[address] Practice [address], [place] [address] Future Appointment 2023-05-14 Shima Quesada [facility] 00:00:[address]; Practice [address], [place] [address] Encounters Start End Encounter Admission Attending Care Care Encounter Source Date/Time Date/Time Type Type Clinicians Facility Department ID 2023-01-17 Outpatient [id number] Memoria 15:36:30 [id number] Imer [id number] 2022-08-12 Outpatient [id number] Memoria 21:44:57 [id number] Imer [id number] 2022-11-16 2022-11-16 Outpatient Daniel_T VFP VFP [id number] [address] [place] [address] 00:00:00 00:00:00 [id number] Family Practic e 2022-11-16 2022-11-16 Outpatient Daniel_T VFP VFP [id number] [address] [place] [address] 00:00:00 00:00:00 [id number] Family Practic e 2022-11-11 2022-11-11 Outpatient Daniel_T VFP VFP [id number] [address] [place] [address] 00:00:00 00:00:00 [id number] Family Practic e 2022-11-11 2022-11-11 Outpatient Daniel_T VFP VFP [id number] [address] [place] [address] 00:00:00 00:00:00 [id number] Family Practic e 2022-11-11 2022-11-11 Ernie VFP [place] - [id number] V illage 00:00:00 00:00:00 [facility] Family CarrionJagdeep - Daniel boland MD: [id number] [place] - e Shadow _[facility], [address], [place] [address] , Ph. 2022-11-03 2022-11-03 Outpatient Daniel_T VFP VFP [id number] [address] [place] [address] 00:00:00 00:00:00 [id number] Family Practic e 2022-08-04 2022-08-04 Outpatient Daniel_T VFP VFP [id number] [address] [place] [address] 00:00:00 00:00:00 [id number] Family Practic e 2022-08-04 2022-08-04 Outpatient Daniel_T VFP VFP [id number] [address] [place] [address] 00:00:00 00:00:00 [id number] Family Practic e 2021-10-06 2021-10-06 Outpatient Daniel_T VFP VFP [id number] [facility] 02:20:00 02:20:00 [id number] Family Practic e 2021-08-05 2021-08-05 Outpatient Daniel_T VFP VFP [id number] 09-06 [facility] 01:02:00 01:02:00 [id number] Family Practic e 2021-08-04 2021-08-04 Outpatient Daniel_T VFP VFP [id number] [facility] 03:43:00 03:43:00 [id number] Family Practic e 2021-08-04 2021-08-04 Ernie VFP [place] - [id number] V illage 00:00:00 00:00:00 [facility] Family CarrionJagdeep - Daniel boland MD: [id number] VM_HOU_Shanarinder e Shadow [facility], [address], [place] [address] , Ph. 2021-08-03 2021-08-03 Outpatient Daniel_T VFP VFP [id number] 09-06 [facility] 12:11:00 12:11:00 [id number] Family Practic e 2021-07-31 2021-07-31 Outpatient Daniel_T VFP VFP [id number] [facility] 04:32:00 04:32:00 [id number] Family Practic e 2021-06-29 2021-06-29 Outpatient [facility] [id number] Memoria 15:15:00 15:15:00 CARDIAC CARDIAC l CLINIC PA CLINIC PA Herm felicita 2021-06-18 2021-06-18 Outpatient [facility] [id number] Memoria 16:54:00 16:54:00 CARDIAC CARDIAC l CLINIC PA CLINIC PA Herm felicita 2021-06-18 2021-06-18 Outpatient R [facility] [id number] Univers 15:30:00 15:30:00 ity [facility] 2021-06-03 2021-06-03 Outpatient [facility] [id number] Memoria 15:20:00 15:20:00 CARDIAC CARDIAC l CLINIC PA CLINIC PA Herm felicita 2021-04-24 2021-04-24 Transition DAIANA Dawson [id number] Univers 00:00:00 00:00:00 of Care Osito CEDENO [id number] [place] [id number] [facility] 403 Branch 2021-04-20 2021-04-23 [facility] Audie Kwon [facility] [id number] Univers 15:48:00 13:29:00 Encounter StephanieemelyBlair Rocío MARY [id number] 0 ity of Jeannine Yates 4.2.7.2.686 [facility] [id number] [facility] 080 Branch 2021-04-20 2021-04-23 Inpatient X TRUDY [facility] MARCI [id number] Univers 15:48:00 13:29:00 JEANNINE [facility] 2021-04-20 2021-04-20 Orders Doctor BRANDON [id number] Univers 00:00:00 00:00:00 Only Unassigned, NORAH 350.1.13.10 ity of [place] [facility] 4.2.7.2.686 Rickey as [id number] [facility] 009 Branch 2020-09-11 2020-09-11 Outpatient R [facility] [id number] Univers 14:30:00 14:30:[facility] 2020-09[facility]10 2020-09-10 [facility] [id number] Univers 09:00:00 09:00:00 JOHNNA posada [facility] 2020-05-29 2020-05-29 Outpatient Guillermo OATES [facility] [id number] Univers 14:30:00 14:30:00 JOHNNA [facility] 2020-04-24 2020-04-24 Outpatient Daniel_T VFP [facility] [id number] 3-20 Village 05:20:00 05:20:00 Family Practic e 2020-02-27 2020-02-27 Out[facility] [id number] Univers 14:00:00 14:00:00 [facility] 2020-02-22 2020-02-22 Outpatient [facility] [id number] Univers 15:00:00 15:00:00 JOHNNA posada [facility] 2020-02-13 2020-02-13 Outpatient R GRAMM, [facility] [id number] Univers 14:30:00 14:30:00 JOHNNA posada [facility] 2020-02-07 2020-02-07 Outpatient R GRAMM, [facility] [id number] Univers 14:15:00 14:15:00 JOHNNA posada [facility] 2020-02-04 2020-02-04 Outpatient R GRAMM, [facility] [id number] Univers 00:00:00 00:00:00 JOHNNA posada [facility] 2020-01-23 2020-01-23 Outpatient R GRAMM, [facility] [id number] Univers 09:30:00 09:30:00 JOHNNA jesús [facility] 2019-06-24 2019-06-24 Emergency X DREVER, [facility] ERT [id number] Univers 15:41:03 18:10:00 HASMUKH [facility] Results Test Description Test Time Test Comments Results Result Comments Source Hemoglobin A1c measurement device panel 2022-11-11 16:06:16 Test Item Value Reference Range Interpretation Comme nts Hemoglobin A1c/Hemoglobin.total in Blood (test code = 4548-4) 5.8 % 4.0-6.4 [facility] [id number] 13:40:07 Test Item Value Reference Range Interpretation Comments Hemoglobin A1C Fingerstick: (test code 5.8 = Hemoglobin A1C Fingerstick:) [facility] [Mass/volume] in Capillary [id number] 13:36:02 Test Item Value Reference Range Interpretation Comments Blood Glucose: mg/dl (test code = Blood 129 Glucose: mg/dl) [facility]2021-04-23 14:44:20 Test Item Value Reference Range Interpretation Comments POCT GLU (test code = 5334707426) 123 mg/dL 70-110 H Lab Interpretation (test code = Abnormal 98961-9) [facility]2021-04-23 12:52:39 Test Item Value Reference Range Interpretation Comments POCT GLU (test code = 3704186020) 96 mg/dL 70-110 Lab Interpretation (test code = Normal 43743-1) [facility] METABOLIC PANEL (NA, K, CL, CO2, GLUCOSE, BUN, CREATININE, CA)2021-04-23 11:55:54 Test Item Value Reference Range Interpretation Comments NA (test code = 131 mmol/L 135-145 L 4533011927) K (test code = 4.1 mmol/L 3.5-5.0 9036154322) CL (test code = 98 mmol/L 98-108 9736427380) CO2 TOTAL (test code = 27 mmol/L 23-31 1278669955) AGAP (test code = 2-16 7405900223) BUN (test code = 23 mg/dL 7-23 8275953911) GLUCOSE (test code = 106 mg/dL 70-110 7405765328) CREATININE (test code = 0.87 mg/dL 0.50-1.04 9581658964) CALCIUM (test code = 9.1 mg/dL 8.6-10.6 7030398320) eGFR (test code = mL/min/1.73m2 2464140830) PRAVIN (test code = PRAVIN) Association of [...] tests). Lab Interpretation Abnormal (test code = 43822-4) [facility] [id number] 11:50:34 Test Item Value Reference Interpretation Comments Range TROPONIN I (test 0.250 ng/mL See_Comment H [Automated code = 6246532179) message] The system which generated this result [...] biotin. Lab Interpretation Abnormal (test code = 86235-1) [facility]AL [id number] 11:47:51 Test Item Value Reference Range Interpretation Comments NT-proBNP (test code 127 pg/mL See_Comment [Autom ated = 0953785017) message] The system which generated this result transmitted reference range : <=450. The reference range was not used to interpret this result as normal/abnormal . PRAVIN (test code = PRAVIN) Biotin has been reported to cause a negative bias, interpret results relative to patient's use of biotin. Lab Interpretation Normal (test code = 73290-0) [facility] THRMPLAS [id number] 11:19:04 Test Item Value Reference Range Interpretation Comments APTT Patient (test See_Comment H [Automat ed code = 3173-2) message] The system which generated this result transmitted reference range : 23 - 38 Seconds . The reference range was not used to interpr et this result as normal/abnormal . PRAVIN (test code = PRAVIN) The [facility] patient population mean normal value for aPTT is 30 seconds. Lab Interpretation Abnormal (test code = 78019-5) [facility] GLUCOSE (AUTOMATED)2021-04-23 11:07:15 Test Item Value Reference Range Interpretation Comments POCT GLU (test code = 5207706942) 109 mg/dL 70-110 Lab Interpretation (test code = Normal 62468-7) [facility] GLUCOSE (AUTOMATED)2021-04-23 11:07:14 Test Item Value Reference Range Interpretation Comments POCT GLU (test code = 8824580728) 116 mg/dL 70-110 H Lab Interpretation (test code = Abnormal 05217-0) [facility] GLUCOSE (AUTOMATED)2021-04-23 11:07:09 Test Item Value Reference Range Interpretation Comments POCT GLU (test code = 5761967549) 150 mg/dL 70-110 H Lab Interpretation (test code = Abnormal 16678-0) [facility] GLUCOSE (AUTOMATED)2021-04-23 02:28:35 Test Item Value Reference Range Interpretation Comments POCT GLU (test code = 1913917111) 151 mg/dL 70-110 H Lab Interpretation (test code = Abnormal 29580-6) [facility] TH[facility] [id number] 19:59:38 Test Item Value Reference Range Interpretation Comments APTT Patient (test See_Comment H [Automat ed code = 3173-2) message] The system which generated this result transmitted reference range : 23 - 38 Seconds . The reference range was not used to interpr et this result as normal/abnormal . PRAVIN (test code = PRAVIN) The [facility] patient population mean normal value for aPTT is 30 seconds. Lab Interpretation Abnormal (test code = 03596-4) [facility] THRM[facility] [id number] 11:53:11 Test Item Value Reference Range Interpretation Comments APTT Patient (test See_Comment H [Automat ed code = 3173-2) message] The system which generated this result transmitted reference range : 23 - 38 Seconds . The reference range was not used to interpr et this result as normal/abnormal . PRAVIN (test code = PRAVIN) The [facility] patient population mean normal value for aPTT is 30 seconds. Lab Interpretation Abnormal (test code = 55588-8) [facility] [id number] 11:33:04 Test Item Value Reference Interpretation Comments Range TROPONIN I (test 0.378 ng/mL See_Comment H [Automated code = 4119886284) message] The system which generated this result [...] biotin. Lab Interpretation Abnormal (test code = 95058-6) [facility]AL [id number] 11:30:06 Test Item Value Reference Range Interpretation Comments NT-proBNP (test code 100 pg/mL See_Comment [Autom ated = 4176246782) message] The system which generated this result transmitted reference range : <=450. The reference range was not used to interpret this result as normal/abnormal . PRAVIN (test code = PRAVIN) Biotin has been reported to cause a negative bias, interpret results relative to patient's use of biotin. Lab Interpretation Normal (test code = 29834-1) [facility]BAS[facility] METABOLIC PANEL (NA, K, CL, CO2, GLUCOSE, BUN, CREATININE, CA)2021-04-22 11:22:23 Test Item Value Reference Range Interpretation Comments NA (test code = 130 mmol/L 135-145 L 8633335595) K (test code = 4.0 mmol/L 3.5-5.0 4383029631) CL (test code = 99 mmol/L 98-108 7291864948) CO2 TOTAL (test code = 24 mmol/L 23-31 5527838586) AGAP (test code = 2-16 7732623370) BUN (test code = 21 mg/dL 7-23 7525970346) GLUCOSE (test code = 111 mg/dL 70-110 H 1244051009) CREATININE (test code = 0.99 mg/dL 0.50-1.04 8733015342) CALCIUM (test code = 9.2 mg/dL 8.6-10.6 6598121808) eGFR (test code = mL/min/1.73m2 9198228842) PRAVIN (test code = PRAVIN) Association of [...] tests). Lab Interpretation Abnormal (test code = 86711-4) [facility]MAGNESIUM2021-11-03 11:22:23 Test Item Value Reference Range Interpretation Comments MAGNESIUM (test code = 3394198840) 2.2 mg/dL 1.7-2.4 Lab Interpretation (test code = Normal 75628-2) [facility]PHOSPHORUS2021-11-03 11:22:03 Test Item Value Reference Range Interpretation Comments PHOSPHORUS (test code = 5562086171) 3.6 mg/dL 2.5-5.0 Lab Interpretation (test code = Normal 23896-6) [facility] WITH [id number] 10:48:03 Test Item Value Reference Range Interpretation [...] RDW-SD (test code = 41.1 fL 39.0-49.9 51043-2) RDW-CV (test code = 12.8 % 12.0-15.5 788-0) PLT (test code = See_Comment [Automated 777-3) message] The sy stem which generated this result transmitted reference range : 166 - 358 10*3/ ?L. The reference r violeta was not used to interpret this result as normal/abnormal . MPV (test code = 9.9 fL 9.5-12.9 09153-6) NRBC/100 WBC (test See_Comment [Automat ed code = 4155340818) message] The system which generated this result transmitted reference range : 0.0 - 10.0 /100 WBCs. The refer ence range was not u sed to interpret th is result as normal/abnormal . NRBC x10^3 (test code <0.01 See_Comment [Auto mated = 6791217197) message] The s [employer] which generated this result transmitted reference range : 10*3/?L. The reference range was not used to interpret this result as normal/abnormal . GRAN MAT (NEUT) % 65.4 % (test code = 770-8) IMM GRAN % (test code 0.50 % = 9862149217) LYMPH % (test code = 24.0 % 736-9) MONO % (test code = 8.2 % 5905-5) EOS % (test code = 1.3 % 713-8) BASO % (test code = 0.6 % 706-2) GRAN MAT x10^3(ANC) 6.13 10*3/uL 1.88-7.09 (test code = 8799432111) IMM GRAN x10^3 (test 0.05 10*3/uL 0.00-0.06 code = 1688353722) LYMPH x10^3 (test code 2.25 10*3/uL 1.32-3.29 = 731-0) MONO x10^3 (test code 0.77 10*3/uL 0.33-0.92 = 742-7) EOS x10^3 (test code = 0.12 10*3/uL 0.03-0.39 711-2) BASO x10^3 (test code 0.06 10*3/uL 0.01-0.07 = 704-7) Lab Interpretation Abnormal (test code = 84447-1) [id number] 00:38:49 Test Item Value Reference Interpretation Comments Range TROPONIN I (test 0.430 ng/mL See_Comment H [Automated code = 7898471830) message] The system which generated this result [...] biotin. Lab Interpretation Abnormal (test code = 83335-8) [facility] GLUCOSE (AUTOMATED)2021-04-22 00:33:45 Test Item Value Reference Range Interpretation Comments POCT GLU (test code = 3542121124) 152 mg/dL 70-110 H Lab Interpretation (test code = Abnormal 04216-9) [facility] HospitalACTIVATED PARTIAL THRMPLAS [id number] 23:55:41 Test Item Value Reference Range Interpretation Comments APTT Patient (test See_Comment H [Automat ed code = 3173-2) message] The system which generated this result transmitted reference range : 23 - 38 Seconds . The reference range was not used to interpr et this result as normal/abnormal . PRAVIN (test code = PRAVIN) The [facility] patient population mean normal value for aPTT is 30 seconds. Lab Interpretation Abnormal (test code = 99114-8) [facility] GLUCOSE (AUTOMATED)2021-04-21 22:04:44 Test Item Value Reference Range Interpretation Comments POCT GLU (test code = 5607099510) 136 mg/dL 70-110 H Lab Interpretation (test code = Abnormal 55780-7) [facility] GLUCOSE (AUTOMATED)2021-04-21 16:51:59 Test Item Value Reference Range Interpretation Comments POCT GLU (test code = 0995539345) 122 mg/dL 70-110 H Lab Interpretation (test code = Abnormal 45269-3) [facility] HospitalTroponin [id number] 14:37:23 Test Item Value Reference Interpretation Comments Range TROPONIN I (test 0.501 ng/mL See_Comment H [Automated code = 7362821419) message] The system which generated this result [...] biotin. Lab Interpretation Abnormal (test code = 04569-6) [facility] HospitalLipid Panel (Total Cholesterol, Triglycerides, HDL)2021-04-21 14:25:42 Test Item Value Reference Range Interpretation Comments CHOL (test code = 148 mg/dL 120-200 6588519300) HDL (test code = 39 mg/dL >50 L 6642390475) HDLC RATIO (test code = See_Comment [Au tomated message] 8468955729) The system [employer] generated this result transmit murali reference range : <=4.5. The refe rence range was not u sed to interpret th is result as normal/abnormal . TRIG (test code = 121 mg/dL 30-170 3085956654) LDL CHOL (test code = 85 mg/dL See_Comment [Auto mated message] 99441-4) The system [employer] generated this result transmit murali reference range : <=160. The refe rence range was not u sed to interpret th is result as normal/abnormal . VLDL (test code = 24 mg/dL 5-60 6738213889) Lab Interpretation (test Abnormal code = 33766-5) [facility] HospitalBASI METABOLIC PANEL (NA, K, CL, CO2, GLUCOSE, BUN, CREATININE, CA)2021-04-21 14:25:22 Test Item Value Reference Range Interpretation Comments NA (test code = 130 mmol/L 135-145 L 2689343252) K (test code = 3.8 mmol/L 3.5-5.0 9316497164) CL (test code = 98 mmol/L 98-108 9473690713) CO2 TOTAL (test code = 26 mmol/L 23-31 5117270480) AGAP (test code = 2-16 2361596483) BUN (test code = 21 mg/dL 7-23 8439167512) GLUCOSE (test code = 102 mg/dL 70-110 0294916755) CREATININE (test code = 0.88 mg/dL 0.50-1.04 3051141607) CALCIUM (test code = 9.3 mg/dL 8.6-10.6 0025984851) eGFR (test code = mL/min/1.73m2 7093496006) PRAVIN (test code = PRAVIN) Association of [...] tests). Lab Interpretation Abnormal (test code = 49193-7) [facility] HospitalaPTT (for use with Heparin Drip)2021-04-21 13:52:42 Test Item Value Reference Range Interpretation Comments APTT Patient (test >150 See_Comment HH [Automat ed code = 3173-2) message] The system which generated this result transmitted reference range : 23 - 38 Seconds . The reference range was not used to interpr et this result as normal/abnormal . PRAVIN (test code = PRAVIN) The [facility] patient population mean normal value for aPTT is 30 seconds. Lab Interpretation Abnormal (test code = 66770-1) [facility] HospitalPO[facility] GLUCOSE (AUTOMATED)2021-04-21 13:09:57 Test Item Value Reference Range Interpretation Comments POCT GLU (test code = 0614060325) 100 mg/dL 70-110 Lab Interpretation (test code = Normal 97477-2) [facility] WITH [id number] 10:49:20 Test Item Value Reference Range Interpretation [...] RDW-SD (test code = 40.7 fL 39.0-49.9 96476-4) RDW-CV (test code = 12.7 % 12.0-15.5 788-0) PLT (test code = See_Comment [Automated 777-3) message] The sy stem which generated this result transmitted reference range : 166 - 358 10*3/ ?L. The reference r violeta was not used to interpret this result as normal/abnormal . MPV (test code = 10.6 fL 9.5-12.9 44000-5) NRBC/100 WBC (test See_Comment [Automat ed code = 0504955211) message] The system which generated this result transmitted reference range : 0.0 - 10.0 /100 WBCs. The refer ence range was not u sed to interpret th is result as normal/abnormal . NRBC x10^3 (test code <0.01 See_Comment [Auto mated = 2354127381) message] The s [employer] which generated this result transmitted reference range : 10*3/?L. The reference range was not used to interpret this result as normal/abnormal . GRAN MAT (NEUT) % 65.1 % (test code = 770-8) IMM GRAN % (test code 0.50 % = 0304237331) LYMPH % (test code = 24.9 % 736-9) MONO % (test code = 7.8 % 5905-5) EOS % (test code = 1.2 % 713-8) BASO % (test code = 0.5 % 706-2) GRAN MAT x10^3(ANC) 5.91 10*3/uL 1.88-7.09 (test code = 3684218922) IMM GRAN x10^3 (test 0.05 10*3/uL 0.00-0.06 code = 0977664755) LYMPH x10^3 (test code 2.27 10*3/uL 1.32-3.29 = 731-0) MONO x10^3 (test code 0.71 10*3/uL 0.33-0.92 = 742-7) EOS x10^3 (test code = 0.11 10*3/uL 0.03-0.39 711-2) BASO x10^3 (test code 0.05 10*3/uL 0.01-0.07 = 704-7) Lab Interpretation Abnormal (test code = 28478-8) [facility] HospitalCherelle [id number] 08:37:42 Test Item Value Reference Interpretation Comments Range TROPONIN I (test 0.498 ng/mL See_Comment H [Automated code = 2335263260) message] The system which generated this result [...] biotin. Lab Interpretation Abnormal (test code = 42119-2) [facility] HospitalThyroid Stimulating Hormone (TSH)2021-04-21 06:38:09 Test Item Value Reference Range Interpretation Comments TSH (test code = See_Comment [Automated message] 6789420796) The system [email or web address] generated this result transmitted ref erence range: 0.45 - 4 .70 mIU/L. The refe rence range was not u sed to interpret this result as normal/abnor mal. Lab Interpretation (test Normal code = 38059-2) [facility] HospitalGlycosylated Hemoglobin (A1C)2021-04-21 06:18:43 Test Item Value Reference Range Interpretation Comments HGB A1C (test code = 6.1 % 4.0-5.7 H 4548-4) PRAVIN (test code = PRAVIN) Reference RangesNormal: <5.7%Prediabetes: 5.7 - 6.4%Diabetes: > 6.5% Lab Interpretation (test Abnormal code = 52661-0) [facility] HospitalaPTT2021-11-02 04:07:54 Test Item Value Reference Range Interpretation Comments APTT Patient (test See_Comment [Automat ed code = 3173-2) message] The system which generated this result transmitted reference range : 23 - 38 Seconds . The reference range was not used to interpr et this result as normal/abnormal . PRAVIN (test code = PRAVIN) The [facility] patient population mean normal value for aPTT is 30 seconds. Lab Interpretation Normal (test code = 93526-5) [facility] HospitalProthrombin Time (PT) / [id number] 04:05:53 Test Item Value Reference Range Interpretation Comments PROTIME PATIENT (test See_Comment [Auto mated message] code = 5964-2) The system [employer] generated this result transmitted ref erence range: 12.0 - 1 4.7 Seconds. The re ference range was not u sed to interpret this result as normal/abnor mal. INR (test code = 6301-6) Nor mal INR <1.1; Warfarin Therap eutic range 2.0 to 3. 0 or 2.5 to 3.5, dep ending upon the indica tions. Lab Interpretation (test Normal code = 08579-0) [facility] HospitalTROPONIN [id number] 01:16:59 Test Item Value Reference Interpretation Comments Range TROPONIN I (test 0.611 ng/mL See_Comment H [Automated code = 0745872568) message] The system which generated this result [...] biotin. Lab Interpretation Abnormal (test code = 32603-7) [facility] HospitalN-TERMINAL [id number] 01:13:55 Test Item Value Reference Range Interpretation Comments NT-proBNP (test code 248 pg/mL See_Comment [Autom ated = 1531271745) message] The system which generated this result transmitted reference range : <=450. The reference range was not used to interpret this result as normal/abnormal . PRAVIN (test code = PRAVIN) Biotin has been reported to cause a negative bias, interpret results relative to patient's use of biotin. Lab Interpretation Normal (test code = 28309-8) [facility] HospitalCOMP. METABOLIC PANEL (27338)2021-04-21 01:04:56 Test Item Value Reference Range Interpretation Comments NA (test code = 129 mmol/L 135-145 L 3533198231) K (test code = 4.3 mmol/L 3.5-5.0 2487382542) CL (test code = 95 mmol/L 98-108 L 9905487561) CO2 TOTAL (test code = 25 mmol/L 23-31 7774677285) AGAP (test code = 2-16 6132792799) BUN (test code = 24 mg/dL 7-23 H 7285769117) GLUCOSE (test code = 109 mg/dL 70-110 6455813908) CREATININE (test code = 0.92 mg/dL 0.50-1.04 7619598004) TOTAL BILI (test code = 0.7 mg/dL 0.1-1.7 6313895924) CALCIUM (test code = 9.7 mg/dL 8.6-10.6 8318945157) T PROTEIN (test code = 8.1 g/dL 6.3-8.2 6174792394) ALBUMIN (test code = 4.6 g/dL 3.5-5.0 5270026859) ALK PHOS (test code = 96 U/L 34-122 6398800199) ALTv (test code = 19 U/L 5-35 2-6) AST(SGOT) (test code = 33 U/L 13-40 0472238792) eGFR (test code = mL/min/1.73m2 6494070428) PRAVIN (test code = PRAVIN) Association of [...] tests). Lab Interpretation Abnormal (test code = 73313-8) [facility] HospitalLIPASE2021-11-02 01:04:35 Test Item Value Reference Range Interpretation Comments LIPASE (test code = 2415556647) 130 U/L 0-220 Lab Interpretation (test code = Normal 42242-9) [facility] WITH [id number] 00:44:32 Test Item Value Reference Range Interpretation Comments WBC (test code = See_Comment [Automated message] 9590-2) The system [employer] generated this result transmitted ref erence range: 4.30 - 1 1.10 10*3/?L. The re ference range was not u sed to interpret this result as normal/abnor mal. RBC (test code = See_Comment [Automated message] 939-8) The system [employer] generated this result transmitted ref erence range: [...] RDW-SD (test code 40.6 fL 39.0-49.9 = 09298-0) RDW-CV (test code 12.5 % 12.0-15.5 = 788-0) PLT (test code = See_Comment [Automated message] 097-3) The system [employer] generated this result transmitted ref erence range: 166 - 35 8 10*3/?L. The re ference range was not u sed to interpret this result as normal/abnor mal. MPV (test code = 9.5 fL 9.5-12.9 67015-2) NRBC/100 WBC (test See_Comment [Automat ed message] code = 3826967584) The syste m which generated this result transmitted ref erence range: 0.0 - 10 .0 /100 WBCs. The refer ence range was not u sed to interpret this result as normal/abnor mal. NRBC x10^3 (test <0.01 See_Comment [Automated message] code = 1937420619) The syste m which generated this result transmitted ref erence range: 10*3/?L. The reference range was not used to interpr et this result as normal/abnormal . GRAN MAT (NEUT) % 67.2 % (test code = 770-8) IMM GRAN % (test 0.60 % code = 2003747637) LYMPH % (test code 23.6 % = 736-9) MONO % (test code 7.4 % = 5905-5) EOS % (test code = 0.8 % 713-8) BASO % (test code 0.4 % = 706-2) GRAN MAT 6.95 10*3/uL 1.88-7.09 x10^3(ANC) (test code = 1282530842) IMM GRAN x10^3 0.06 10*3/uL 0.00-0.06 (test code = 6319409412) LYMPH x10^3 (test 2.44 10*3/uL 1.32-3.29 code = 731-0) MONO x10^3 (test 0.76 10*3/uL 0.33-0.92 code = 742-7) EOS x10^3 (test 0.08 10*3/uL 0.03-0.39 code = 711-2) BASO x10^3 (test 0.04 10*3/uL 0.01-0.07 code = 704-7) [facility]"
[2023-01-17 16:36] VITALS: BMI 32.0
[2023-01-17] MEDS: Meropenem 1,000 MG in NA CHLORIDE 0.9% 100 ML IV SCH (17:30)
[2023-01-17] MEDS: DULOXETINE 20 MG CAP PO SCH (21:00)
[2023-01-17] MEDS: Mupirocin NASAL 2 APPL/1 GM TUBE NAS SCH (21:03)
[2023-01-17 22:55] VITALS: O2SAT 98
[2023-01-18] MEDS: Meropenem 1,000 MG in NA CHLORIDE 0.9% 100 ML IV SCH ×3 (00:15→16:41)
[2023-01-18 06:59] LABS: Absolute Lymphocytes (CBC) 1.7 K/uL (0.7-4.9); MCV 87.8 fL (80-100); MPV 7.4 fL (7.6-11.3); RBC Red Blood Cell Count 3.98 M/uL (3.86-4.86)
[2023-01-18 07:16] LABS: Albumin 3.4 g/dL (3.4-5.0); Bilirubin Total 0.7 mg/dL (0.2-1.0); Potassium 3.8 mEq/L (3.5-5.1)
--- NOTE | 2023-01-18 08:31 | P.PN ---
Subjective Date of Service: 01/18/23 Primary Care Provider: Trey Chief Complaint: ESBL UTI Subjective: No new changes Review of Systems 10-point ROS is otherwise unremarkable Physical Examination - Vital Signs Temperature: 97.8 F Blood Pressure: 168/65 Pulse: 56 Respirations: 16 Pulse Ox (%): 100 - Physical Exam General: Alert, In no apparent distress HEENT: Atraumatic, PERRLA, EOMI Neck: Supple, JVD not distended Respiratory: Clear to auscultation bilaterally, Normal air movement Cardiovascular: Regular rate/rhythm, Normal S1 S2 Gastrointestinal: Normal bowel sounds, No tenderness Musculoskeletal: No tenderness Integumentary: No rashes Neurological: Normal speech, Normal tone, Normal affect Lymphatics: No axilla or inguinal lymphadenopathy - Studies Laboratory Data (last 24 hrs) 01/18/23 01/18/23 06:42 06:03 WBC 8.30 Hgb 11.4 L Hct 35.0 L Plt Count 229 Sodium 134 L Potassium 3.8 BUN 16 Creatinine 0.97 Glucose 98 Total Bilirubin 0.7 AST 15 ALT 24 Alkaline Phosphatase 88 Assessment And Plan - Current Problems (Diagnosis) (1) UTI (urinary tract infection) due to Enterococcus Current Visit: Yes Status: Acute Plan: will admit her. Start her on meropenem. Will order a picc line. Order director of social media marketing for out patient iv antibiotic. 8.1 awaiting picc line placement and arrangement for outpatient iv antibiotics. (2) CAD (coronary artery disease) Current Visit: Yes Status: Acute Plan: she is on a statin, carvediolol, aspirin and plavix. Will continue the ARB, Aspirin and plavix. Will consider stopping the atorvastatin Qualifiers: Coronary Disease-Associated Artery/Lesion type: [place] artery [place] vs. transplanted heart: [place] heart Associated angina: without angina Qualified Code(s): I25.10 - Atherosclerotic heart disease of [place] coronary artery without angina pectoris (3) Diabetes mellitus Current Visit: No Status: Chronic Plan: She is well controlled on januvia. however will check an a1c. We may consider stopping this due to the increased risk of UTI's. (4) Hypertension Current Visit: No Status: Acute Plan: restart her home medications and adjust as needed. Qualifiers: Hypertension type: primary hypertension Qualified Code(s): I10 - Essential (primary) hypertension Discharge Plan: Other Plan to discharge in: 24 Hours - Code Status/Comfort Care Code Status Assessed: No Physician Review: Patient Assessed, Agree with Above Assessment and Plan Critical Care: No Time Spent Managing PTS Care (In Minutes): 20
[2023-01-18] MEDS ORDERED: TIMOLOL OPTH SCH (09:00)
[2023-01-18] MEDS ORDERED: BRIMONIDINE OPTH SCH (09:00)
[2023-01-18] MEDS ORDERED: HOME MED 1 EA UNK (Esomeprazole Magnesium [Esomeprazole Magnesium] 40 MG Capsule.Dr) PO SCH (09:00)
[2023-01-18] MEDS ORDERED: ASPIRIN EC 81 MG TAB PO SCH (09:00)
[2023-01-18] MEDS ORDERED: CLOPIDOGREL 75 MG TABLET PO SCH (09:00)
[2023-01-18] MEDS: DULOXETINE 20 MG CAP PO SCH ×2 (10:15→22:06)
[2023-01-18] MEDS: VALSARTAN 80 MG TAB PO SCH (10:15)
[2023-01-18] MEDS: ASPIRIN EC 81 MG TAB PO SCH (10:15)
[2023-01-18] MEDS: CLOPIDOGREL 75 MG TABLET PO SCH (10:16)
[2023-01-18] MEDS: PANTOPRAZOLE 40MG TABLET PO SCH (10:16)
[2023-01-18] MEDS: Mupirocin NASAL 2 APPL/1 GM TUBE NAS SCH ×2 (10:16→22:06)
--- NOTE | 2023-01-18 14:51 | RAD REPORT ---
EXAM DESCRIPTION: RAD - Chest Single View - 01/18/2023 2:44 pm CLINICAL HISTORY: Device placement PICC line placement IMPRESSION: PICC line with its tip 2 centimeters into the right atrium
--- NOTE | 2023-01-18 16:14 | RAD REPORT ---
EXAM DESCRIPTION: RAD - Chest Single View - 01/18/2023 3:50 pm CLINICAL HISTORY: Device placement PICC line placement IMPRESSION: PICC line with its tip in the superior vena cava
[2023-01-18] MEDS ORDERED: [UNRECOGNIZED DRUG - OTHER] OPTH SCH (21:00)
[2023-01-18] MEDS ORDERED: TRAVOPROST 0.004% OPTH SCH (21:00)
[2023-01-18] MEDS: BRIMONIDINE OPTH SCH (22:08)
[2023-01-18] MEDS: TIMOLOL OPTH SCH (22:08)
[2023-01-19] MEDS: Meropenem 1,000 MG in NA CHLORIDE 0.9% 100 ML IV SCH ×2 (01:00→09:36)
[2023-01-19 07:31] LABS: Absolute Lymphocytes (CBC) 1.6 K/uL (0.7-4.9); Hematocrit 34.5 % (36.0-45.0); MCV 87.4 fL (80-100); MPV 7.1 fL (7.6-11.3); RBC Red Blood Cell Count 3.95 M/uL (3.86-4.86)
[2023-01-19 07:55] LABS: Albumin 3.2 g/dL (3.4-5.0); Bilirubin Total 0.6 mg/dL (0.2-1.0); Potassium 3.7 mEq/L (3.5-5.1); Protein, Total 6.8 g/dL (6.4-8.2)
[2023-01-19] MEDS: VALSARTAN 80 MG TAB PO SCH (09:38)
[2023-01-19] MEDS: PANTOPRAZOLE 40MG TABLET PO SCH (09:38)
[2023-01-19] MEDS: CLOPIDOGREL 75 MG TABLET PO SCH (09:38)
[2023-01-19] MEDS: DULOXETINE 20 MG CAP PO SCH (09:39)
[2023-01-19] MEDS: Mupirocin NASAL 2 APPL/1 GM TUBE NAS SCH (09:39)
[2023-01-19] MEDS: ASPIRIN EC 81 MG TAB PO SCH (09:39)
[2023-01-19 09:40] VITALS: BP 131/66
[2023-01-19] MEDS: TIMOLOL OPTH SCH (09:40)
[2023-01-19] MEDS: BRIMONIDINE OPTH SCH (09:40)
--- NOTE | 2023-01-19 10:10 | P.DS ---
Admission Date: 01/17/23 Discharge Date: 01/19/23 Primary Care Provider: Trey Disposition: ROUTINE DISCHARGE Discharge Condition: GOOD Reason for Admission: ESBL UTI - Problems (1) UTI (urinary tract infection) due to Enterococcus Current Visit: Yes Status: Acute (2) CAD (coronary artery disease) Current Visit: Yes Status: Acute Qualifiers: Coronary Disease-Associated Artery/Lesion type: [place] artery [place] vs. transplanted heart: [place] heart Associated angina: without angina Qualified Code(s): I25.10 - Atherosclerotic heart disease of [place] coronary artery withou t angina pectoris (3) Diabetes mellitus Current Visit: No Status: Chronic (4) Hypertension Current Visit: No Status: Acute Qualifiers: Hypertension type: primary hypertension Qualified Code(s): I10 - Essential (primary) hypertension Brief History of Present Illness: Patient is an office patient of Mrs Yang. She has a history of dm2 well controlled, htn, cad and hyperlipidemia. She has been having recurrent uti's over the past few months. She has had multiple rounds of antibiotics. She has some stomach pain and is urinating every 2 hours. Yesterday her cultures came back with MDR E. Coli. Only suseptible to meropenem and gentamycin. She will need 2 weeks of iv meropenem. As it would be difficult to arrange all this outpatient. I have admitted her for a picc line placement and social service consult for the meropenem Hospital Course: Patient was admitted for esbl uti. She had multiple rounds of po antibiotics as an outpatient. She had a picc line placed and had home meropenem arranged. Which the patient is sensitive too. Will have her follow up in 1 week with Mrs. Yang Vital Signs/Physical Exam: Temp Pulse Resp BP Pulse Ox 96.8 F 65 16 131/66 976 01/19/23 04:00 01/19/23 09:38 01/19/23 04:00 01/19/23 09:38 01/19/23 04:00 General: Alert, In no apparent distress HEENT: Atraumatic, PERRLA, EOMI Neck: Supple, JVD not distended Respiratory: Clear to auscultation bilaterally, Normal air movement Cardiovascular: Regular rate/rhythm, Normal S1 S2 Gastrointestinal: Normal bowel sounds, No tenderness Musculoskeletal: No tenderness Integumentary: No rashes Neurological: Normal speech, Normal tone, Normal affect Lymphatics: No axilla or inguinal lymphadenopathy Laboratory Data at Discharge: WBC 9.90 thou/uL (4.3-10.9) 01/19/23 07:20 Hgb 11.6 g/dL (12.0-15.0) L 01/19/23 07:20 Hct 34.5 % (36.0-45.0) L 01/19/23 07:20 Plt Count 241 thou/uL (152-406) 01/19/23 07:20 Sodium 134 mEq/L (136-145) L 01/19/23 07:20 Potassium 3.7 mEq/L (3.5-5.1) 01/19/23 07:20 BUN 25 mg/dL (7-18) H 01/19/23 07:20 Creatinine 1.02 mg/dL (0.55-1.02) 01/19/23 07:20 Glucose 112 mg/dL (74-106) H 01/19/23 07:20 Total Bilirubin 0.6 mg/dL (0.2-1.0) 01/19/23 07:20 AST 19 U/L (15-37) 01/19/23 07:20 ALT 24 U/L (13-56) 01/19/23 07:20 Alkaline Phosphatase 82 U/L (45-117) 01/19/23 07:20 Home Medications: Telmisartan/Hydrochlorothiazid [Micardis Hct 80-12.5 mg Tablet] 1 each PO DAILY 08/27/13 Amlodipine [Norvasc*] 5 mg PO DAILY 03/28/18 Atorvastatin Calcium [Lipitor*] 20 mg PO DAILY 03/28/18 Sitagliptin Phosphate [Januvia*] 100 mg PO DAILY 03/28/18 Aspirin [Aspirin EC] 1 tab PO DAILY 01/17/23 Brimonidine Tartrate/Timolol [Brimonidine-Timolol 0.2%-0.5%] 1 drop OPTH BID 01/17/23 Carvedilol [Coreg] 1 tab PO BID 01/17/23 Clopidogrel Bisulfate [Plavix*] 1 tab PO DAILY 01/17/23 Esomeprazole Magnesium 1 tab PO DAILY 01/17/23 Travoprost (Benzalkonium) [Travatan 0.004% Eye Drop] 1 drop OPTH BEDTIME 01/17/23 Meropenem [Merrem 1 GM/100 ML NS IVPB] 0 gm IV Q8HR 12 Days #36 ml 01/19/23 New Medications: Meropenem [Merrem 1 GM/100 ML NS IVPB] 0 gm IV Q8HR 12 Days #36 ml Diet: ADA Activity: Ad ari Followup: Suzette Yang FNP [facility] [Primary Care Provider] - 1 Week Physician Review: Patient Assessed, Agree with Above Assessment and Plan Time spent managing pt's care (in minutes): 30
[2023-01-19 10:14] VITALS: TEMP 97.2
== END 2023-01-19 12:00 | disposition home health service (06) | DRG 690 ==
LOC: 2ND 15:01
PROVIDERS: ADMIT Internal Medicine; ATTEND Internal Medicine
PROC: 02HV33Z Insertion of Infusion Device into Superior Vena Cava, Percutaneous Approach (ICD-10-PCS; principal; 2023-01-17)
DX: N39.0 Urinary tract infection, site not specified (principal); Z16.12 Extended spectrum beta lactamase (ESBL) resistance; B96.20 Unspecified Escherichia coli [E. coli] as the cause of diseases classified elsewhere; B95.2 Enterococcus as the cause of diseases classified elsewhere; E11.9 Type 2 diabetes mellitus without complications; I10 Essential (primary) hypertension; I25.10 Atherosclerotic heart disease of native coronary artery without angina pectoris; E78.5 Hyperlipidemia, unspecified; Z87.440 Personal history of urinary (tract) infections; Z79.84 Long term (current) use of oral hypoglycemic drugs; Z79.899 Other long term (current) drug therapy; Z88.5 Allergy status to narcotic agent; Z90.49 Acquired absence of other specified parts of digestive tract; Z90.710 Acquired absence of both cervix and uterus
CPT/HCPCS: 36415; 36569; 71045; 80053; 82947; 83036; 85025; 97116; 97161; J2185